=== PATIENT | male | born 1945 | race Caucasian/White ===

== ENCOUNTER → 2022-05-28 11:59 | Outpatient (CLI) | payer SELFPAY | PROVIDERS: Visit Provider Physician Assistant | DX: R30.0 Dysuria (principal) | CPT/HCPCS: 87077; 87086 ==

== ENCOUNTER → 2022-11-11 09:48 | Outpatient (CLI) | payer OTHER, SELFPAY | PROVIDERS: Visit Provider Physician Assistant | DX: R30.0 Dysuria (principal) | CPT/HCPCS: 87077; 87086 ==

== ENCOUNTER 2022-12-03 13:12 | Emergency (ER) | payer OTHER, SELFPAY ==
[2022-12-03] VITALS (13 sets, daily range): BP systolic 115–144; BP diastolic 61–98; PULSE 95–102; RESP 13–25; TEMP 36.8; O2SAT 93–98; BMI 21.8
--- NOTE | 2022-12-03 13:28 | DI.RAD.S_ITS ---
PROCEDURE: XR CHEST 1V INDICATIONS: Shortness of breath TECHNIQUE: One view of the chest was acquired. COMPARISON: None. FINDINGS: Surgical changes and devices: None. Lungs and pleura: Left lower lobe opacity in the retrocardiac region. No pleural effusion. No pneumothorax. Mediastinum: Mediastinal contours appear normal. Heart size is normal. Bones and chest wall: No suspicious bony lesions. Overlying soft tissues appear unremarkable. IMPRESSION: Left lower lobe pneumonia. Dictated by: Lauro Arriaga M.D. on 12/03/2022 at 12:51 Approved by: Lauro Arriaga M.D. on 12/03/2022 at 12:52
[2022-12-03 13:38] LABS: Add Manual Diff / Slide Review NO; Basophils Absolute Auto 0 /uL (0-100); Basophils Percent Auto 0.5 % (0-2); Eosinophils Absolute Auto 100 /uL (0-450); Eosinophils Percent Auto 0.7 % (2-4); Hematocrit 34.2 % (41-53); Hemoglobin 11.4 g/dL (13.5-17.5); Lymphocytes Absolute Auto 1400 /uL (1100-4500); Lymphocytes Percent Auto 14.6 % (25-40); Mean Corpuscular HGB Conc 33.3 % (30-36); Mean Corpuscular Hemoglobin 33.4 PG (26-34); Mean Corpuscular Volume 100.5 fL (80-100); Monocytes Absolute Auto 500 /uL (0-900); Monocytes Percent Auto 4.9 % (3-14); Neutrophils Absolute Auto 7500 /uL (1500-7000); Neutrophils Percent Auto 79.3 % (50-75); Platelet Count 277 X10^3/uL (150-400); Red Cell Distribution Width 14.6 % (11.6-14.8); White Blood Cell Count 9.4 X10^3/uL (4.5-11.0)
--- NOTE | 2022-12-03 13:38 | PC.NURSE ---
xray at bedside
--- NOTE | 2022-12-03 13:42 | PC.NURSE ---
additional upper airway suctioning done here in ED. Pt able to complete himself, with improvement, sats 94-96% on RA. Son at bedside. Pt reports did not eat today, only takes insulin at night, increased weakness over last 2 weeks, worsening today. fall yesterday -hit head, -head/neck/back pain. -thinners. usually ambulates independently without assistance; family reports things took a turn this morning, reports fluids building up in his mouth and weakness. pt confirms. denies pain. denies shortness of breath, only c/o sputum in mouth, mildly relieved with suctioning. suction and oxygen ready at bedside. on all monitoring equipment.
[2022-12-03 13:43] LABS: INR 1.1 (0.9-1.3); Prothrombin Time 12.7 SECONDS (10.1-12.7)
[2022-12-03 13:54] LABS: Alanine Aminotransferase 38 IU/L (<50); Albumin 3.5 g/dL (3.5-5.0); Albumin Globulin Ratio 1.1 (1.0-2.8); Alkaline Phosphatase 95 U/L (38-126); Aspartate Aminotransferase 33 IU/L (17-59); BUN Creatinine Ratio 21.1 (6-22); Bilirubin Total 0.3 mg/dL (0.2-1.3); Blood Urea Nitrogen 36 mg/dL (9-20); Calcium 9.5 mg/dL (8.4-10.2); Carbon Dioxide 24 mmol/L (22-32); Chloride 110 mmol/L (98-107); Estimated Glomerular Filt Rate 40 mL/min (>60); Globulin 3.2 g/dL (1.7-4.1); Glucose 145 mg/dL (80-110); HEMOLYSIS < 15 (0-50); Potassium 3.7 mmol/L (3.4-5.1); Sodium 144 mmol/L (137-145); Total Protein 6.7 g/dL (6.3-8.2)
[2022-12-03 13:55] LABS: Lactate (Lactic Acid) 1.5 mmol/L (0.7-2.1)
--- NOTE | 2022-12-03 14:08 | PC.NURSE ---
pt requesting a drink; Dr. olson requesting to feed patient; swallow screen completed and failed, pt started coughing and required oral suctioning; Dr. Olson notified. Rt at bedside for eval.
[2022-12-03 14:09] LABS: NT-proBNP (BNP-Adult 18+) 2620 pg/mL (<450); Troponin I 0.048 ng/mL (0.01-0.034)
--- NOTE | 2022-12-03 14:10 | PC.NURSE ---
pt denies difficulty swallowing at baseline. Dr. Lee notified.
[2022-12-03 14:14] LABS: COVID-19 CEPHEID 4-PLEX PCR Negative (Negative); Influenza A - CEPHEID Flu A NEGATIVE (NEGATIVE); Influenza B - CEPHEID Flu B NEGATIVE (NEGATIVE); Respiratory Syncytial Virus Negative (Negative)
--- NOTE | 2022-12-03 15:33 | ED.URI ---
HPI - URI/Sore Throat General Chief Complaint: Upper Respiratory Symptoms Stated Complaint: URI Time Seen by Provider: 12/03/22 13:34 Source: patient, family and EMS Mode of arrival: EMS Limitations: no limitations History of Present Illness HPI Narrative: 77-year-old male with persistent tremor but no formal diagnosis, hypertension, dyslipidemia, CHF, diabetes type 2 with complaint of phlegm and mucus that has been going on for 1 or 2 weeks. Patient has noticed he is coughing more and having some difficulty with swallowing particularly liquids. Family patient states been going on for some time. He is able to swallow his pills without much issue they state coughing seems to happen intermittently. He denies chest pain or pressure, no shortness of breath no fevers. States cough is been sort of clear productive. Denies abdominal back or flank pain. No nausea no vomiting, no issues with bowel movements such as diarrhea constipation. Did have a bowel movement yesterday but not today, no dysuria urgency or frequency. Discussed with patient he does have tremors of his chin and hand he is never been formally diagnosed but has had kind of worsening weakness, difficulty getting out of his chair movement. Patient primary care is through the [facility]. Related Data Home Medications Medication Instructions Recorded Confirmed amlodipine 5 mg tablet 5 mg PO DAILY 11/11/22 11/11/22 metoprolol succinate 25 mg 25 mg PO DAILY 11/11/22 11/11/22 tablet,extended release 24 hr Previous Rx's Medication Instructions Recorded amoxicillin 875 mg-potassium 1 tab PO BID #20 tabs 12/03/22 clavulanate 125 mg tablet Allergies Allergy/AdvReac Type Severity Reaction Status Date / Time No Known Drug Allergies Allergy Unverified 11/11/22 09:46 Review of Systems Review of Systems ROS Unobtainable: All systems reviewed & are unremarkable except as noted in HPI and below Patient History Social History Smoking Status: Current every day smoker Smoking Status: Current every day smoker Exam Narrative Exam Narrative: GEN: well nourished, well appearing male, alert and oriented x 3, patient appears to be in mild distress. HEENT: Atraumatic, pupils are equal round reactive to light, extraocular movements are intact, nares are clear. Throat is clear without any exudates, erythema, tonsillar enlargement or uvular deviation, normal speech no muffled voice. Patient does have some mild tremor of his chin. HEART: Regular rate and rhythm without murmur, clicks, rubs. Pulses are equal in upper and lower extremities LUNGS:Lungs clear to auscultation, no wheezes, rales, crackles, chest moves symmetrically, no tachypnea or accessory muscle use. Patient has 10mL suctioned secretions/sputum ABD:bowel sounds normal, soft, non-tender, no guarding, rebound, rigidity, no masses noted, no hepatosplenomegaly :No CVA tenderness MSCL: Non-tender, no muscle atrophy, muscles strength 5/5 upper and lower extremities, full range of motion. NEURO:CN 2-12 intact, sensation normal, Mild tremor upper extremity on left. Initial Vital Signs Initial Vital Signs: Vital Signs Pulse Rate 101 H 12/03/22 13:19 Respiratory Rate 24 12/03/22 13:19 Blood Pressure 132/98 H 12/03/22 13:19 Pulse Oximetry 96 12/03/22 13:19 Course Orders Ordered: ED Orders 12/03/22 13:20 Complete Blood Count AUTO DIFF Stat Comprehensive Metabolic Panel Stat Covid-19 + FLU A/B + RSV - PCR Stat Lactate (Lactic Acid) Stat NT-proBNP (BNP-Adult 18+) Stat Prothrombin Time INR Stat Troponin I Stat 12/03/22 13:28 XR chest 1V Stat EKG-12 Lead Stat Measure peak expiratory flow ONCE RT Consult Eval and Treat NOW 12/03/22 15:55 Troponin I Stat 12/03/22 16:04 EKG-12 Lead Stat Discontinued Medications Amoxicillin/Clavulanate Potassium (Amoxicillin/Clav 875/125 Mg) 1 tab PO NOW ONE Stop: 12/03/22 18:03 Last Admin: 12/03/22 18:18 Dose: 1 tab Documented By: KF Vital Signs Vital signs: Vital Signs - 8 hr 12/03/22 13:19 12/03/22 13:19 12/03/22 13:22 Temperature 98.3 F Pulse Rate 101 H 99 H Respiratory Rate 24 22 Blood Pressure 132/98 H 132/98 H Pulse Oximetry 96 95 Oxygen Delivery Method Room Air 12/03/22 13:30 12/03/22 13:30 12/03/22 14:00 Temperature Pulse Rate 100 H 100 H Respiratory Rate 21 24 Blood Pressure 138/74 Pulse Oximetry 94 94 Oxygen Delivery Method Room Air 12/03/22 14:00 12/03/22 14:30 12/03/22 14:30 Temperature Pulse Rate 102 H Respiratory Rate 25 H Blood Pressure 136/65 139/77 Pulse Oximetry 97 Oxygen Delivery Method Room Air 12/03/22 15:00 12/03/22 15:00 12/03/22 15:30 Temperature Pulse Rate 95 H 101 H Respiratory Rate 19 13 Blood Pressure 115/62 Pulse Oximetry 97 96 Oxygen Delivery Method 12/03/22 15:30 12/03/22 16:00 12/03/22 16:00 Temperature Pulse Rate 96 H Respiratory Rate 22 Blood Pressure 135/74 126/69 Pulse Oximetry 98 Oxygen Delivery Method 12/03/22 16:30 12/03/22 16:30 12/03/22 17:00 Temperature Pulse Rate 99 H 97 H Respiratory Rate 20 22 Blood Pressure 144/80 H Pulse Oximetry 98 97 Oxygen Delivery Method 12/03/22 17:00 12/03/22 17:30 12/03/22 17:30 Temperature Pulse Rate 100 H Respiratory Rate 21 Blood Pressure 123/66 133/74 Pulse Oximetry 97 Oxygen Delivery Method 12/03/22 18:00 12/03/22 18:00 12/03/22 18:30 Temperature Pulse Rate 96 H 99 H Respiratory Rate 16 20 Blood Pressure 123/61 Pulse Oximetry 95 93 Oxygen Delivery Method MDM - URI/Sore Throat Lab Data 12/03/22 13:20 12/03/22 13:20 Labs: Lab Results 12/03/22 12/03/22 Range/Units 13:20 15:55 WBC 9.4 (4.5-11.0) X10^3/uL RBC 3.40 L (4.5-5.9) X10^6/uL Hgb 11.4 L (13.5-17.5) g/dL Hct 34.2 L (41-53) % MCV 100.5 H (80-100) fL MCH 33.4 (26-34) PG MCHC 33.3 (30-36) % RDW 14.6 (11.6-14.8) % Plt Count 277 (150-400) X10^3/uL Neut % (Auto) 79.3 H (50-75) % Lymph % (Auto) 14.6 L (25-40) % Nobles % (Auto) 4.9 (3-14) % Eos % (Auto) 0.7 L (2-4) % Baso % (Auto) 0.5 (0-2) % Neut # (Auto) 7500 H (6997-9300) /uL Lymph # (Auto) 1400 (5220-6632) /uL Nobles # (Auto) 500 (0-900) /uL Eos # (Auto) 100 (0-450) /uL Baso # (Auto) 0 (0-100) /uL PT 12.7 (10.1-12.7) SECONDS INR 1.1 (0.9-1.3) Sodium 144 (137-145) mmol/L Potassium 3.7 (3.4-5.1) mmol/L Chloride 110 H (98-107) mmol/L Carbon Dioxide 24 (22-32) mmol/L BUN 36 H (9-20) mg/dL Creatinine 1.71 H (0.66-1.25) mg/dL Estimated GFR 40 L (>60) mL/min BUN/Creatinine Ratio 21.1 (6-22) Glucose 145 H (80-110) mg/dL Lactate 1.5 (0.7-2.1) mmol/L Calcium 9.5 (8.4-10.2) mg/dL Total Bilirubin 0.3 (0.2-1.3) mg/dL AST 33 (17-59) IU/L ALT 38 (<50) IU/L Alkaline Phosphatase 95 (38-126) U/L Troponin I 0.048 H 0.056 H (0.01-0.034) ng/mL NT-Pro-B Natriuret Pep 2620 H (<450) pg/mL Total Protein 6.7 (6.3-8.2) g/dL Albumin 3.5 (3.5-5.0) g/dL Globulin 3.2 (1.7-4.1) g/dL Albumin/Globulin Ratio 1.1 (1.0-2.8) SARS-CoV-2 (PCR) Negative (Negative) Influenza A (RT-PCR) Flu a negative (NEGATIVE) Influenza B (RT-PCR) Flu b negative (NEGATIVE) RSV (PCR) Negative (Negative) Imaging Data Chest x-ray: Radiologist's Impression: [address] [address] XRay Report Signed Patient: Chilango Adams MR#: [id number] : 1945 Acct:[id number] Age/Sex: 77 / M Date of Service: 12/03/22 Loc: ED Accession Number: [id number] Procedure: XR chest 1V Ordering Provider: Marisol Lee D.O. PROCEDURE: XR CHEST 1V INDICATIONS: Shortness of breath TECHNIQUE: One view of the chest was acquired. COMPARISON: None. FINDINGS: Surgical changes and devices: None. Lungs and pleura: Left lower lobe opacity in the retrocardiac region. No pleural effusion. No pneumothorax. Mediastinum: Mediastinal contours appear normal. Heart size is normal. Bones and chest wall: No suspicious bony lesions. Overlying soft tissues appear unremarkable. IMPRESSION: Left lower lobe pneumonia. Dictated by: Lauro Arriaga M.D. on 12/03/2022 at 12:51 Approved by: Lauro Arriaga M.D. on 12/03/2022 at 12:52 ECG Data Attestation: I personally reviewed and interpreted this ECG as follows: Prior ECG tracings: available for review Interpretation: EKG was sinus rhythm first-degree AV block, rate 90 9p are 264 QRS of 94 QTC 492 quite a bit of motion artifact on EKG. Repeat EKG shows sinus rhythm first-degree AV block left axis deviation rate of 97 DC 272 QRS of 94 QTC [address] No acute [address] elevation depression noted motion artifact significantly improved. Patient has prior from 2014 which appears similar in ST segments. MDM Narrative Medical decision making narrative: 77-year-old male concern for upper respiratory infection but I suspect he may have little bit of aspiration pneumonia. He did not pass a swallow eval with water but did do very well with applesauce and thickened liquids here. Patient's slightly tachycardic still 99, no hypotension no significant hypoxia, no tachypnea or fever. White count 9.4 hemoglobin is 11 sodium 277 coags are negative, creatinine is 1.71 the BUN at 36 unclear if this is new or baseline patient is unsure, no significant electrolyte abnormalities or glucose changes. Troponin was 0.048 and on repeat 0.056 with a BNP of 2 620. Negative for Plex with a chest x-ray consistent with left lower lobe pneumonia. Patient's lungs are fairly clear, he is no chest pain no chest pressure denies shortness of breath. He had a little bit of clear productive sputum but not very much in the department. Discussed with patient about keeping for observation, possible swallow eval in the morning for further workup suspect he may have some Parkinson's or other developing disorder causing his swallowing issues. Patient is quite adamant he would like to return home. Discussed with patient will start oral antibiotic he tolerated that here in the department. Asked him to reach out to primary care for further workup with Neurology and swallow eval and patient family feel comfortable with this plan. Discharge Plan Departure Patient Disposition: Home Clinical Impression: Pneumonia, Difficulty swallowing Instructions: DI for Pneumonia -- Adult Activity Restrictions/Additional Instructions: Please follow-up with your physician. You appear to have a pneumonia in the left side of your chest, I suspect there maybe a component of aspiration from difficulty swallowing. I would recommend thickened diet until you have a swallow evaluation Talk with your physician about having a swallow study and neurologic workup for your tremor. Your renal function is elevated today at 1.71, this maybe your normal baseline I do not have any priors for comparison, talk with your physician to follow up your labs You may continue your home medications as prescribed. Take your antibiotics until gone. You can crush this medication if needed. Prescription sent to [facility] in [place]. Please return for fevers new or worsening chest pain, shortness of breath, worsening difficulty swallowing, persistent vomiting, new swelling in her extremities or other new or concerning changes. Prescriptions: New amoxicillin-pot clavulanate 875-125 mg tablet 1 tab PO BID Qty: 20 0RF No Action metoprolol succinate 25 mg tablet extended release 24 hr 25 mg PO DAILY amlodipine 5 mg tablet 5 mg PO DAILY Referrals: Miscellaneous,Doctor, MD [Primary Care Provider] - Stand Alone Forms: Patient Portal/API
[2022-12-03 16:27] LABS: Troponin I 0.056 ng/mL (0.01-0.034)
--- NOTE | 2022-12-03 17:08 | PC.NURSE ---
dr olson at bedside with pt and pt family
--- NOTE | 2022-12-03 17:22 | PC.NURSE ---
per direct order from dr wesley martini to give pt applesauce and try thickened liquid. applesauce provided, pt tolerated well, able to feed self, no choking or coughing episodes. dr wesley langston.
[2022-12-03] MEDS: AMOXICILLIN/CLAV 875/125 MG 1 TAB PO (18:18)
== END 2022-12-03 18:40 | disposition home or self-care (01) ==
PROVIDERS: Emergency Provider Emergency Medicine
DX: J18.9 Pneumonia, unspecified organism (principal); R13.10 Dysphagia, unspecified; F17.210 Nicotine dependence, cigarettes, uncomplicated; I44.0 Atrioventricular block, first degree
CPT/HCPCS: 0241U; 36415; 71045; 80053; 83605; 83880; 84484; 85025; 85610; 93005; 99284

== ENCOUNTER 2022-12-06 08:23 | Inpatient (IN) | payer OTHER, SELFPAY ==
[2022-12-06] VITALS (15 sets, daily range): BP systolic 112–148; BP diastolic 61–71; PULSE 55–112; RESP 16–26; TEMP 36.3–36.5; O2SAT 87–98; BMI 20.5
--- NOTE | 2022-12-06 08:35 | DI.RAD.S_ITS ---
PROCEDURE: XR CHEST 1V INDICATIONS: hypoxia, cough, recent PNA TECHNIQUE: One view of the chest was acquired. COMPARISON: [facility], , XR CHEST 1V, 12/03/2022, 13:37. FINDINGS: Surgical changes and devices: None. Lungs and pleura: Airspace opacity in the left lower lobe is unchanged compared to 12/03/2022. No pleural effusions or pneumothorax. Mediastinum: Mediastinal contours appear normal. Heart size is normal. Bones and chest wall: No suspicious bony lesions. Overlying soft tissues appear unremarkable. Leftward curvature of the thoracic spine. IMPRESSION: Patchy airspace opacity in the left lower lobe unchanged compared to 12/03/2022. Dictated by: Gal Noel M.D. on 12/06/2022 at 9:10 Approved by: Gal Noel M.D. on 12/06/2022 at 9:12
--- NOTE | 2022-12-06 08:37 | ED.WEAKNESS ---
HPI - Weakness General Chief complaint: Shortness of Breath/Dyspnea Stated complaint: SOB Time Seen by Provider: 12/06/22 08:26 History of Present Illness HPI Narrative: 77-year-old male with history of hypertension, CHF, COPD (not on O2) presents by EMS from home for generalized weakness and productive cough. Patient was seen for same on 12/03/2022. He was diagnosed with pneumonia. There was concern for possible aspiration, they performed a swallow test and he performed well with thickened liquids. He was discharged back home. He lives on the same property as his son and [id number], and they help him daily. This morning the son went to check on his father as per usual and found him nearly comatose with gurgling respirations and called 911. Patient was hypoxic by EMS in the 80s and placed on 2 L nasal cannula. On arrival patient was suctioned and secretions were evacuated from the patient's oral cavity. After being suctioned the patient stated he felt much better. Related Data Home Medications Medication Instructions Recorded Confirmed amlodipine 5 mg tablet 5 mg PO DAILY 11/11/22 12/06/22 metoprolol succinate 25 mg 25 mg PO DAILY 11/11/22 12/06/22 tablet,extended release 24 hr albuterol sulfate 90 mcg/actuation 2 puff inhalation Q4-6H PRN SOB 12/06/22 12/06/22 aerosol inhaler chlorthalidone 25 mg tablet 25 mg PO DAILY 12/06/22 12/06/22 glipizide 10 mg tablet 10 mg PO BID 12/06/22 12/06/22 lisinopril 40 mg tablet 40 mg PO DAILY 12/06/22 12/06/22 metformin 1,000 mg tablet 1,000 mg PO BID 12/06/22 12/06/22 rosuvastatin 5 mg tablet (Crestor) 5 mg PO DAILY 12/06/22 12/06/22 Previous Rx's Medication Instructions Recorded amoxicillin 875 mg-potassium 1 tab PO BID #20 tabs 12/03/22 clavulanate 125 mg tablet Allergies Allergy/AdvReac Type Severity Reaction Status Date / Time No Known Drug Allergies Allergy Unverified 11/11/22 09:46 Review of Systems Review of Systems Narrative: Negative except as noted above Patient History Social History (Reviewed 12/03/22 @ 19:23 by YANIRA Yañez Smoking Status: Current every day smoker Smoking Status: Current every day smoker Exam Initial Vital Signs Initial Vital Signs: Vital Signs Pulse Oximetry 91 12/06/22 08:27 Oxygen Delivery Method Nasal Cannula 12/06/22 08:27 Oxygen Flow Rate 2 12/06/22 08:27 Const: Awake, alert, debilitated, frail, underweight Eyes: PERRL, EOMI, conjunctiva normal ENT: Atraumatic, dry mucous membranes, respiratory secretions suctioned from posterior oropharynx Cardiac: Tachycardia, regular rhythm RESP: And start crackles bilaterally GI: Atraumatic, soft, nontender MSK: Atraumatic, full range of motion, pulses equal Skin: Warm, Dry, poor skin turgor Neuro: AO x3, CN II-XII grossly intact, moves all extremities Course Orders Ordered: ED Orders 12/06/22 08:35 XR chest 1V Stat EKG-12 Lead Stat 12/06/22 08:44 COVID19 -Nasal RAPID Stat Covid-19 + FLU A/B + RSV - PCR Stat 12/06/22 08:45 Blood Culture Stat Complete Blood Count AUTO DIFF Stat Comprehensive Metabolic Panel Stat Lactate (Lactic Acid) Stat NT-proBNP (BNP-Adult 18+) Stat PTT Partial Thromboplastin Nikolas Stat Procalcitonin Stat Prothrombin Time INR Stat Troponin & CK Cardiac Panel Stat 12/06/22 09:00 Arterial Blood Gas Stat 12/06/22 09:48 CT head/brain wo con Stat 12/06/22 10:12 Urinalysis and Microscopic Stat 12/06/22 10:48 Consult to Occupational Therapy Evaluate & Treat 12/06/22 11:44 Consult to Speech Therapy Evaluate & Treat 12/06/22 12:30 Consult to Speech Therapy Evaluate & Treat Discontinued Medications Lactated Ringer's (Lactated Ringers) 2,100 mls @ 700 mls/hr 30 ml/kg infuse over 3 hr (2100 ml) IV NOW ONE Stop: 12/06/22 11:34 Last Infusion: 12/06/22 11:01 Dose: Infused Documented By: Admin: 12/06/22 08:56 Dose: 700 mls/hr Documented By: KELLE Piperacillin Sod/Tazobactam (Sod 4.5 gm/ Sodium Chloride) 100 mls @ 200 mls/hr IV NOW ONE Stop: 12/06/22 08:36 Last Infusion: 12/06/22 09:34 Dose: Infused Documented By: Admin: 12/06/22 08:56 Dose: 200 mls/hr Documented By: CTS Lidocaine HCl (Lidocaine 2% (Glydo) 6 Ml Gel) 6 ml TOP NOW ONE Stop: 12/06/22 11:31 Last Admin: 12/06/22 11:38 Dose: Not Given Documented By: MPO Reevaluation(s) Reevaluation #1: Chest x-ray shows unchanged pneumonia. Other laboratory work is relatively unremarkable. CT brain negative for acute findings. Patient is still requiring 2 L oxygen to maintain saturations. Patient failed bedside swallow test and he is so weak that he is unable to get up to even walk. Plan to admit patient for pneumonia failing outpatient therapy as well as severe weakness with inability to tolerate secretions. Vital Signs Vital signs: Vital Signs - 8 hr 12/06/22 08:27 12/06/22 08:28 12/06/22 08:28 Temperature Pulse Rate 90 Respiratory Rate Blood Pressure 122/61 Pulse Oximetry 91 91 Oxygen Delivery Method Nasal Cannula Nasal Cannula Oxygen Flow Rate 2 2 12/06/22 08:30 12/06/22 08:31 12/06/22 09:00 Temperature 97.7 F Pulse Rate 87 89 88 Respiratory Rate 17 24 24 Blood Pressure 122/61 136/66 Pulse Oximetry 88 L 87 L 98 Oxygen Delivery Method Room Air Room Air Nasal Cannula Oxygen Flow Rate 3 12/06/22 10:00 12/06/22 10:32 12/06/22 11:28 Temperature Pulse Rate 92 H 84 112 H Respiratory Rate 24 16 20 Blood Pressure 148/71 H 125/69 137/65 Pulse Oximetry 97 97 92 Oxygen Delivery Method Nasal Cannula Room Air Room Air Oxygen Flow Rate 3 12/06/22 12:00 Temperature Pulse Rate 104 H Respiratory Rate 24 Blood Pressure 112/65 Pulse Oximetry 91 Oxygen Delivery Method Room Air Oxygen Flow Rate MDM - Weakness Lab Data 12/06/22 08:45 12/06/22 08:45 Labs: Lab Results 12/06/22 12/06/22 12/06/22 Range/Units 08:44 08:45 09:00 WBC 8.1 (4.5-11.0) X10^3/uL RBC 3.14 L (4.5-5.9) X10^6/uL Hgb 10.6 L (13.5-17.5) g/dL Hct 31.7 L (41-53) % MCV 101.1 H (80-100) fL MCH 33.8 (26-34) PG MCHC 33.4 (30-36) % RDW 14.6 (11.6-14.8) % Plt Count 247 (150-400) X10^3/uL Neut % (Auto) 75.5 H (50-75) % Lymph % (Auto) 14.9 L (25-40) % [place] % (Auto) 4.7 (3-14) % Eos % (Auto) 4.1 H (2-4) % Baso % (Auto) 0.8 (0-2) % Neut # (Auto) 6100 (4837-6844) /uL Lymph # (Auto) 1200 (6579-6574) /uL [place] # (Auto) 400 (0-900) /uL Eos # (Auto) 300 (0-450) /uL Baso # (Auto) 100 (0-100) /uL PT 12.5 (10.1-12.7) SECONDS INR 1.1 (0.9-1.3) APTT 27 (26-36) SECONDS ABG Sample Site Left radial ABG pH 7.49 H (7.35-7.45) ABG pCO2 35.6 (35-45) mmHg ABG pO2 92 (80-100) mmHg ABG HCO3 27 (23-27) mmol/L ABG Total CO2 28 H (23-27) mmol/L ABG O2 Saturation 98 (95-100) % ABG Base Excess 3.0 (-2-3) mmol/L FiO2 28 Sodium 142 (137-145) mmol/L Potassium 3.8 (3.4-5.1) mmol/L Chloride 105 (98-107) mmol/L Carbon Dioxide 26 (22-32) mmol/L BUN 41 H (9-20) mg/dL Creatinine 1.93 H (0.66-1.25) mg/dL Estimated GFR 35 L (>60) mL/min BUN/Creatinine Ratio 21.2 (6-22) Glucose 127 H (80-110) mg/dL Lactate 1.1 (0.7-2.1) mmol/L Calcium 9.2 (8.4-10.2) mg/dL Total Bilirubin 0.5 (0.2-1.3) mg/dL AST 47 (17-59) IU/L ALT 65 H (<50) IU/L Alkaline Phosphatase 100 (38-126) U/L Total Creatine Kinase 39 L (55-170) U/L Troponin I 0.044 H (0.01-0.034) ng/mL NT-Pro-B Natriuret Pep 1080 H (<450) pg/mL Total Protein 6.5 (6.3-8.2) g/dL Albumin 3.4 L (3.5-5.0) g/dL Globulin 3.1 (1.7-4.1) g/dL Albumin/Globulin Ratio 1.1 (1.0-2.8) Procalcitonin 0.27 (<0.5) ng/mL Urine Color Urine Appearance Urine pH (4.5-8.0) Ur Specific [place] (1.000-1.035) Urine Protein (Negative) Urine Glucose (UA) (Negative) g/dL Urine Ketones (NEGATIVE) Urine Occult Blood (Negative) Urine Nitrate (Negative) Urine Bilirubin (NEGATIVE) Urine Urobilinogen (0.2) E.U./dL Ur Leukocyte Esterase (NEGATIVE) Urine RBC (0-5/HPF) Urine WBC (0-5/HPF) Ur Squamous Epith Cells (0-5/HPF) Urine Bacteria (None) Ur Culture Indicated? SARS-CoV-2 (PCR) Negative (Negative) Influenza A (RT-PCR) Flu a negative (NEGATIVE) Influenza B (RT-PCR) Flu b negative (NEGATIVE) RSV (PCR) Negative (Negative) 12/06/22 Range/Units 10:12 WBC (4.5-11.0) X10^3/uL RBC (4.5-5.9) X10^6/uL Hgb (13.5-17.5) g/dL Hct (41-53) % MCV (80-100) fL MCH (26-34) PG MCHC (30-36) % RDW (11.6-14.8) % Plt Count (150-400) X10^3/uL Neut % (Auto) (50-75) % Lymph % (Auto) (25-40) % Hardeman % (Auto) (3-14) % Eos % (Auto) (2-4) % Baso % (Auto) (0-2) % Neut # (Auto) (7055-3790) /uL Lymph # (Auto) (5078-6036) /uL Hardeman # (Auto) (0-900) /uL Eos # (Auto) (0-450) /uL Baso # (Auto) (0-100) /uL PT (10.1-12.7) SECONDS INR (0.9-1.3) APTT (26-36) SECONDS ABG Sample Site ABG pH (7.35-7.45) ABG pCO2 (35-45) mmHg ABG pO2 (80-100) mmHg ABG HCO3 (23-27) mmol/L ABG Total CO2 (23-27) mmol/L ABG O2 Saturation (95-100) % ABG Base Excess (-2-3) mmol/L FiO2 Sodium (137-145) mmol/L Potassium (3.4-5.1) mmol/L Chloride (98-107) mmol/L Carbon Dioxide (22-32) mmol/L BUN (9-20) mg/dL Creatinine (0.66-1.25) mg/dL Estimated GFR (>60) mL/min BUN/Creatinine Ratio (6-22) Glucose (80-110) mg/dL Lactate (0.7-2.1) mmol/L Calcium (8.4-10.2) mg/dL Total Bilirubin (0.2-1.3) mg/dL AST (17-59) IU/L ALT (<50) IU/L Alkaline Phosphatase (38-126) U/L Total Creatine Kinase (55-170) U/L Troponin I (0.01-0.034) ng/mL NT-Pro-B Natriuret Pep (<450) pg/mL Total Protein (6.3-8.2) g/dL Albumin (3.5-5.0) g/dL Globulin (1.7-4.1) g/dL Albumin/Globulin Ratio (1.0-2.8) Procalcitonin (<0.5) ng/mL Urine Color Yellow Urine Appearance Clear Urine pH 5.0 (4.5-8.0) Ur Specific [place] 1.015 (1.000-1.035) Urine Protein Trace H (Negative) Urine Glucose (UA) Negative (Negative) g/dL Urine Ketones Negative (NEGATIVE) Urine Occult Blood 1+ H (Negative) Urine Nitrate Negative (Negative) Urine Bilirubin Negative (NEGATIVE) Urine Urobilinogen 0.2 (0.2) E.U./dL Ur Leukocyte Esterase 1+ H (NEGATIVE) Urine RBC 1-5/hpf (0-5/HPF) Urine WBC 1-5/hpf (0-5/HPF) Ur Squamous Epith Cells None seen (0-5/HPF) Urine Bacteria None seen (None) Ur Culture Indicated? Cult not indicated SARS-CoV-2 (PCR) (Negative) Influenza A (RT-PCR) (NEGATIVE) Influenza B (RT-PCR) (NEGATIVE) RSV (PCR) (Negative) Urine Dip Bedside Urine Glucose Negative Bedside Urine Bilirubin - Negative Bedside Urine Ketone - Negative Urine Specific [place] 1.015 Bedside Urine Occult Blood +/- Bedside Urine pH 6.0 Bedside Urine Protein - Negative Bedside Urine Urobilinogen - Negative Bedside Urine Nitrite - Negative Bedside Urine Leukocytes - Negative Esterase MDM Narrative Medical decision making narrative: Frail and chronically unwell appearing patient with rhonchorous cough, unable to expel secretions. Recently treated for pneumonia, patient is so profoundly debilitated and weak that he is unable to fully cough. Deep suction improve patient's airway status and oxygenation. We will order fluids, IV antibiotics. Since there was a suspicion of aspiration pneumonia on previous visit we will order Zosyn. Family at bedside states that patient was previously able to swallow and expel secretions prior to his pneumonia diagnosis. With new difficulty swallowing question if he had a CVA causing this dysphagia, we will order CT brain. Discharge Plan Departure Patient Disposition: Admitted As Inpatient Clinical Impression: Generalized weakness Pneumonia Qualifiers: Pneumonia type: due to unspecified organism Laterality: left Lung location: lower lobe of lung Qualified Code(s): J18.9 - Pneumonia, unspecified organism Difficulty swallowing Qualifiers: Dysphagia type: unspecified Qualified Code(s): R13.10 - Dysphagia, unspecified Protein calorie malnutrition Qualifiers: Protein-calorie malnutrition severity: unspecified severity Qualified Code(s): E46 - Unspecified protein-calorie malnutrition Admit Date/Time: 12/06/22 12:41 Admit Provider: Terrence Mendieta
[2022-12-06 08:55] LABS: Add Manual Diff / Slide Review NO; Basophils Absolute Auto 100 /uL (0-100); Basophils Percent Auto 0.8 % (0-2); Eosinophils Absolute Auto 300 /uL (0-450); Eosinophils Percent Auto 4.1 % (2-4); Hematocrit 31.7 % (41-53); Hemoglobin 10.6 g/dL (13.5-17.5); Lymphocytes Absolute Auto 1200 /uL (1100-4500); Lymphocytes Percent Auto 14.9 % (25-40); Mean Corpuscular HGB Conc 33.4 % (30-36); Mean Corpuscular Hemoglobin 33.8 PG (26-34); Mean Corpuscular Volume 101.1 fL (80-100); Monocytes Absolute Auto 400 /uL (0-900); Monocytes Percent Auto 4.7 % (3-14); Neutrophils Absolute Auto 6100 /uL (1500-7000); Neutrophils Percent Auto 75.5 % (50-75); Platelet Count 247 X10^3/uL (150-400); Red Blood Cell Count 3.14 X10^6/uL (4.5-5.9); Red Cell Distribution Width 14.6 % (11.6-14.8); White Blood Cell Count 8.1 X10^3/uL (4.5-11.0)
[2022-12-06] MEDS: PIPERACILLIN/TAZO 4.5 GM in SODIUM CHLORIDE 0.9% 100 ML IV (08:56)
[2022-12-06] MEDS: LACTATED RINGERS 2,100 ML 700 ML IV (08:56)
[2022-12-06 09:02] LABS: INR 1.1 (0.9-1.3); Prothrombin Time 12.5 SECONDS (10.1-12.7)
[2022-12-06 09:05] LABS: Lactate (Lactic Acid) 1.1 mmol/L (0.7-2.1)
[2022-12-06 09:06] LABS: Alanine Aminotransferase 65 IU/L (<50); Albumin 3.4 g/dL (3.5-5.0); Albumin Globulin Ratio 1.1 (1.0-2.8); Alkaline Phosphatase 100 U/L (38-126); Aspartate Aminotransferase 47 IU/L (17-59); BUN Creatinine Ratio 21.2 (6-22); Bilirubin Total 0.5 mg/dL (0.2-1.3); Blood Urea Nitrogen 41 mg/dL (9-20); Calcium 9.2 mg/dL (8.4-10.2); Carbon Dioxide 26 mmol/L (22-32); Chloride 105 mmol/L (98-107); Creatine Kinase 39 U/L (55-170); Estimated Glomerular Filt Rate 35 mL/min (>60); Globulin 3.1 g/dL (1.7-4.1); Glucose 127 mg/dL (80-110); HEMOLYSIS < 15 (0-50); Potassium 3.8 mmol/L (3.4-5.1); Sodium 142 mmol/L (137-145); Total Protein 6.5 g/dL (6.3-8.2)
[2022-12-06 09:11] LABS: COVID19 -Nasal RAPID Negative (Negative)
[2022-12-06 09:13] LABS: PTT Partial Thromboplastin Tim 27 SECONDS (26-36)
[2022-12-06 09:18] LABS: NT-proBNP (BNP-Adult 18+) 1080 pg/mL (<450); Troponin I 0.044 ng/mL (0.01-0.034)
[2022-12-06 09:23] LABS: Procalcitonin 0.27 ng/mL (<0.5)
[2022-12-06 09:34] LABS: Influenza A - CEPHEID Flu A NEGATIVE (NEGATIVE); Influenza B - CEPHEID Flu B NEGATIVE (NEGATIVE); Respiratory Syncytial Virus Negative (Negative)
[2022-12-06 09:36] LABS: COVID-19 CEPHEID 4-PLEX PCR Negative (Negative)
--- NOTE | 2022-12-06 09:48 | DI.CT.S_ITS ---
PROCEDURE: CT HEAD/BRAIN WO CON INDICATIONS: DIFFICULTY SWALLOWING X1 WK TECHNIQUE: Noncontrast 4.5 mm thick angled axial sections acquired from the foramen magnum to the vertex, with coronal and sagittal reformats. For radiation dose reduction, the following was used: automated exposure control, adjustment of mA and/or kV according to patient size. COMPARISON: [facility], CR, XR CHEST 1V, 12/06/2022, 8:46. FINDINGS: Image quality: Excellent. CSF spaces: Basal cisterns are patent. No extra-axial fluid collections. The ventricles are symmetric in size and shape. Brain: No intracranial bleeds or masses. There is cerebral volume loss for age, with resultant ventricular and sulcal prominence. There are periventricular and deep white matter chronic small vessel ischemic changes. There is intracranial internal carotid artery atherosclerosis. Skull and face: Calvarium and visualized facial bones appear intact, without suspicious lesions. Sinuses: Visualized sinuses and mastoids are clear. IMPRESSION: No acute intracranial process is seen. Note is made of age-appropriate brain parenchymal volume loss and chronic small vessel ischemic changes. Dictated by: Riccardo Link M.D. on 12/06/2022 at 9:27 Approved by: Riccardo Link M.D. on 12/06/2022 at 9:27
--- NOTE | 2022-12-06 10:16 | PC.NURSE ---
Please see paper charting for additional vitals unable to cross into EMR
[2022-12-06 10:21] LABS: Fractionated Inspired Oxygen 28; HCO3 ABG 27 mmol/L (23-27); Oxygen Saturation ABG 98 % (95-100); PCO2 ABG 35.6 mmHg (35-45); PO2 ABG 92 mmHg (80-100); TCO2 ABG 28 mmol/L (23-27); pH ABG 7.49 (7.35-7.45)
[2022-12-06 10:22] LABS: Allen Test for ABG Passed? Yes, Passed; Blood Gas Collection Site Left Radial
[2022-12-06 10:29] LABS: Appearance Urine UA CLEAR; Bilirubin Urine UA NEGATIVE (NEGATIVE); Color Urine UA YELLOW; Glucose Urine UA NEGATIVE (Negative); Ketones Urine UA NEGATIVE (NEGATIVE); Leukocyte Esterase Urine UA 1+ (NEGATIVE); Nitrite Urine UA NEGATIVE (Negative); Occult Blood Urine UA 1+ (Negative); Protein Urine UA TRACE (Negative); Specific Gravity Urine UA 1.015 (1.000-1.035); Urobilinogen Urine UA 0.2 E.U./dL (0.2)
[2022-12-06 10:36] LABS: Bacteria Urine None Seen; Culture Indicated Urine Cult Not Indicated; RBC Urine 1-5/HPF (0-5/HPF); Squamous Epithelial Cell Urine None Seen (0-5/HPF); WBC Urine 1-5/HPF (0-5/HPF)
--- NOTE | 2022-12-06 11:47 | PC.NURSE ---
Pt unable to ambulate due to extreme weakness and SOB. Pt sat at edge of bed and was unable to stand. Failed swallow screen due to pt's gurgling voice and need to suctioning. Pt placed on NPO status and COSMETIC COUNSELOR consult per protocol. Bladder scan 600cc. Dumont cath placed per MD order.
--- NOTE | 2022-12-06 12:31 | OT.IPNOTE ---
OT orders received for swallowing and able to call ER to clarify that orders were for MINING CAPTAIN and not OT, therefore discharge OT eval orders.
--- NOTE | 2022-12-06 13:19 | PC.NURSE ---
Day shift: Pt in room from ED at approx 1320. Small BM in brief, iona area cleaned, barrier cream applied, and brief changed. Pt does have a quarter sized area of skin breakdown at the coccyx. Coccyx area is red and blanchable. Skin tear left elbow. Left and right FA are wrapped in gauze CDI. Bilateral FA's are purple. VS WNL. 1L NC 94%. Unable to lift left leg off of bed. CMS intact all extremities. Oriented to room and call light. He will be a high fall risk and those protocols are in effect. Call light in reach. Pt also has a tremor at the mouth area. Pt and Pt's Son state he has had this for over a year. Dumont patent with good output. Clear yellow fluid.
--- NOTE | 2022-12-06 14:25 | PT.IIE ---
Physical Therapy Inpatient Evaluation/Re-Eval M1 PT/OT-IP Prior Functional Status Start: 12/06/22 16:25 Freq: NEEDED Status: Active Protocol: Document 12/06/22 14:25 AB (Rec: 12/06/22 16:36 AB [id number]) Medical Review Prior Functional Status Medical History Reviewed Yes Communication able to answer questions; slow speech Mobility and Gait pt stated that he is independent with all mobilities and ambulation without AD Social History Household Members none Living Arrangements House Number of Floors (Floors) One Floor Number of Stairs To Enter/Railing? no steps to enter Home Environment High Toilet,Walk in Shower Home Equipment Front Wheel Walker,Straight Cane,Grab Bars Near Toilet, Grab Bars In Shower Additional Social History Comment pt stated that his son or DIL checks on him daily. Son/DIL lives ~ 200 feet away per pt. M2 PT-IP Current Condition Start: 12/06/22 16:25 Freq: NEEDED Status: Active Protocol: Document 12/06/22 14:25 AB (Rec: 12/06/22 16:36 AB [email or web address]) Physical Therapy Current Condition Current Condition Evaluation Date 12/06/22 Treatment Diagnosis PNA; difficulty in walking Onset Date 12/06/22 M3 PT-IP Subjective Start: 12/06/22 16:25 Freq: NEEDED Status: Active Protocol: Document 12/06/22 14:25 AB (Rec: 12/06/22 16:36 AB [email or web address]) Subjective Physical Therapy Visit Type Type Initial Evaluation Visit Start Time 14:25 Visit Stop Time 16:25 Total Visit Minutes 39 Notes pt seen for split visits: 1425 to 1535 and 1556 to 1625 Number of PRINTER ASSISTANT Visits 0 Physical Therapy Visit Comments Patient Comments agreeable to do PT Therapy Pain Assessment Pain Present Pain Present Denied Pain M4 PT-IP Mobility and Gait Start: 12/06/22 16:25 Freq: NEEDED Status: Active Protocol: Document 12/06/22 14:25 AB (Rec: 12/06/22 16:36 AB [email or web address]) PT-Bed Mobility Assessment Supine to Sit Supine to Sit Standby Assistance Scooting Scooting to Edge of Bed Maximum Assistance PT-Transfer Assessment Sit to and From Stand Sit to and from Stand Minimal Assistance,1 Person Assistance,Use of Upper Extremities Equipment Transfer Assistive Device Gait Belt,Front Wheeled Walker Orthotic/Prosthetic Devices or Brace: No Transfers Transfer Destination Chair Transfer Technique ambulated Transfer Ability Level of Assist Minimal Assistance Comments Mobility Comments pt supine in bed and agreeable to do PT. BP: 124/62 O2 sat with 1L/min O2 varies from 94 -100% pt completed supine to sit SBA . able to sit on EOB SBA. max A for scooting to EOB. completed sit to stand min A and step transfer to chair using FWW min A. pt able to ambulate in room ~ 20 ft using FWW min A. pt agreed to stay seated on the chair. positioned on the chair. call light and table placed within reach. Gait Assessment Gait Gait Assistance Required: Minimum Assistance Distance (Feet) 20 Able to Maintain Weight Bearing Status Yes During Gait Assistive Devices Assistive Device Gait Belt,Front Wheeled Walker Orthotic/Prosthetic Devices or Brace: No Gait Deviations General Gait Pattern Decreased Stride Length, Decreased Feet Clearance Factors Limiting Gait Function Factors Limiting Gait Function Decreased Activity Tolerance, Decreased Strength,Difficulty Following Directions,Pain,Poor Balance,Poor Safety Awareness ,Respiratory Distress PT-Balance Assessment Sitting Balance and Reactions Static Sitting Balance Ability Good Dynamic Sitting Balance Ability Good Standing Balance and Reactions Static Standing Balance Ability Fair Dynamic Standing Balance Ability Fair Device Used FWW M5 PT-IP Objective Assessments Start: 12/06/22 16:25 Freq: NEEDED Status: Active Protocol: Document 12/06/22 14:25 AB (Rec: 12/06/22 16:36 AB [email or web address]) Orientation Orientation/Cognition Level of Alertness Alert Orientation Name,Place,Situation Safety Awareness Decreased Safety Awareness Memory Description Short Term Impaired Gross Range of Motion Lower Extremity ROM Assessment Within Functional Limits Strength Lower Extremity Strength Hip 4-/5 Knee 4-/5 Sensation Assessment Sensation Gross Sensation WNL Muscle Tone Muscle Tone WNL Yes M6 PT-IP Treatment Start: 12/06/22 16:25 Freq: NEEDED Status: Active Protocol: Document 12/06/22 14:25 AB (Rec: 12/06/22 16:36 AB [email or web address]) Physical Therapy Treatment Education Education Provided Safety M7 PT-IP Assessment and Plan Start: 12/06/22 16:25 Freq: NEEDED Status: Active Protocol: Document 12/06/22 14:25 AB (Rec: 12/06/22 16:36 AB [email or web address]) PT Summary Assessment and Plan Potential Rehabilitation Potential Fair Status of Condition at Evaluation Evolving Summary Impairments Pain,ROM,Strength,Balance, Coordination,Sensation,Tone, Cognition,Bed Mobility, Transfers,Gait,Activity Tolerance Assessment Summary pt is a 77 y/o M admitted for PNA and weakness. pt currently requiring min A for transfers and ambulation using FWW and uses 1L/min O2 and O2 sat maintained at 94-100% with activity. pt was independent with all mobilities without AD prior to admission and was needing O2 supplementation. d /c plan depending on progress. will continue to assess. Goals Bed Mobility Goal Independent Transfer Goal Independent,Front Wheeled Walker Gait Goal Independent,Front Wheel Walker Gait Distance 200 Other Goals improve transfers and ambulation using LRAD/without AD 300 ft mod I Days to Meet Goals 10 Frequency of Treatment Frequency Of Treatment Once a Day Treatment Plan Physical Therapy Treatment Plan Bed Mobility Training,Transfer Training,Gait Training, Therapeutic Exercise,Balance Retraining,Discharge Planning, Hot or Cold Pack,Neuromuscular Re-ed,Coordination Retraining Precautions Other Precautions falls Recommendations To Nursing Amount of Assist Needed 1 Person Assist Discharge Recommendations PT Discharge Recommendations Home with 28/08 Assist Available,Home Health,SNF Rehab,Home vs SNF Transportation Needs at Discharge Private Vehicle,Wheelchair/ Cabulance
[2022-12-06] MEDS: cefTRIAXone 1,000 MG in SODIUM CHLORIDE 0.9% 100 ML 200 MG IV (14:52)
[2022-12-06] MEDS: AZITHROMYCIN 500 MG in DEXTROSE 5% IN WATER 250 ML 250 MG IV (15:38)
--- NOTE | 2022-12-06 16:19 | ST.IPCSEOM ---
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 Mendieta Reason for Referral Pt with gurgly voice and suctioning required in ED. Setting Assessment Location Acute Care Visit Type Note Type Initial evaluation Next Note Type Next Note Type Treatment Note Patient Information Identification Type Name History Per H&P- 77-year-old male with history of hypertension, CHF, COPD (not on O2) presents by EMS from home for generalized weakness and productive cough. Patient was seen for same on 12/03/2022. He was diagnosed with pneumonia. There was concern for possible aspiration, they performed a swallow test and he performed well with thickened liquids. He was discharged back home. He lives on the same property as his son and [id number], and they help him daily. This morning the son went to check on his father as per usual and found him nearly comatose with gurgling respirations and called 911. Patient was hypoxic by EMS in the 80s and placed on 2 L nasal cannula. On arrival patient was suctioned and secretions were evacuated from the patient's oral cavity. After being suctioned the patient stated he felt much better. Pt referred for ST evaluation d/t Pt not passing swallow screen in ER and exhibiting wet gurgly vocal quality. Subjective Observations Pt laying in bed. Nurse Kimo assisted ST with positioning Pt upright in bed for PO trials. Pt reported he was hungry and compliant with PO trials. Pt reports increased difficulties swallowing water last 2 weeks stating, If I swallow water I cough. Pt reports baseline diet soft solids and thin liquids. Pt son present during evaluation. Pt son reports Pt with increased swallowing difficulties this past year since Parkinson's dx about a year ago, specifically increase in phlegm and coughing. Pt first came to the ER on 12/03/22 with PNA where thickened liquids were provided with increase in swallowing ability. Pt son reports since this past Sunday Pt has primarily been consuming pureed solids, some peaches and pears and minimal liquids. Reported by Patient/Caregiver Other Symptoms Coughing,Difficulty swallowing liquids Comment Pt with wet gurgly vocal quality and coughing. Current Diet NPO Baseline Feeding Method Needs some assistance The IDDSI Framework Protocol: IDDSI.1 Objective Assessment Mental Status Alert,Responsive,Cooperative Oral Integrity WFL Dentition Within normal limits Lip Function Mild impairment Pucker Reduced range of motion, Reduced strength Lip Retraction Reduced range of motion Alternating Pucker/Lip Retraction Reduced range of motion Tongue Function Mild impairment Observations of Tongue at Rest Involuntary movement(s) Tongue Protrusion Reduced range of motion, Reduced strength Comment Oral motor exam completed at time of evaluation. Pt with natural dentition, fair condition. Pt with involuntary lower jaw and lingual movements, which may be d/t Parkinson's, Pt reports tremors are inconsistent. Pt with overall reduced strength and ROM with lingual and labial musculature. Food and Liquid Trials Position During Assessment Upright (90 degrees) Liquids Trialed Thin (IDDSI 0),Mildly Thick ( IDDSI 2) Solid Trials Purred (IDDSI 4) Administration Type Cup single sip,Cup consecutive sips,Self-feeding Oral Impairment Mildly impaired Oral Phase Comments For thin liquids Pt demonstrated slight impulsivity characterized by large consecutive sips requiring mod cues to slow rate and take 1 sip at a time, good oral acceptance and containment with all trials. For thin/nectar liquids Pt demonstrated suspected loss of bolus resulting in premature spillage. For pudding Pt demonstrated large bites requiring cues to take smaller bites, prolonged bolus manipulation, extended ap transport, piecemeal deglutition, mild diffuse oral stasis. Pharyngeal Impairment Moderately impaired Pharyngeal Phase Comments For thin liquids Pt demonstrated suspected delay in swallow, weak/reduced laryngeal elevation, audible swallow reflex, multiple swallows to clear single bolus , increas in wet vocal quality , immediate cough x1 and delayed cough reflex x1. Pt with inconsistent wet vocal quality and coughing throughout evaluation prior to PO trials. Nursing assisted in setting up suction for Pt post swallows on thin liquids d/t increase in wet vocal quality and coughing. Pt able to suction independently resulting in clear vocal quality. For nectar thick liquids Pt demonstrated suspected delay in swallow, audible swallow, clear vocal quality, no overt s/s of aspiration. For pudding Pt demonstrated suspected delay in swallow, weak/reduced laryngeal elevation, audible swallow reflex, 1x delayed cough reflex however unable to determine if d/t Pt with baseline cough or if d/t solids. The IDDSI Framework Protocol: IDDSI.1 Findings Swallowing Function Oropharyngeal phase dysphagia Severity of Swallow Impairment Moderately-severely impaired Prognosis Guarded Based on Comorbidities Comment Pt presents with mild oral phase dysphagia and suspected mod-severe pharyngeal phase dysphagia. Pt with baseline wet vocal quality and coughing and overt s/s of aspiration specifically coughing with thin liquids. Pt benefited from sitting upright and use of suction to reduce coughing and wet vocal quality. Impact on Safety and Functioning Risk for aspiration Recommendations Instrumental Assessment Yes Swallowing Treatment Yes Frequency Daily while Pt inpatient Duration Until d/c Recommended Solids Pureed (IDDSI 4) Recommended Liquids Moderately Thick (IDDSI 3) Other Recommendations ST recommends MBS. Order communicated with MD and scheduled for 12/07/22. ST communicated recommendations with Pt, MD, nursing and Pt son. Swallow sign with diet recommendations and safe swallowing strategies placed in Pt room. ST recommends Pt downgraded to no safe PO diet if Pt spikes a fever or increase in respiratory/ swallowing issues. Safety Precautions/Swallowing Supervision needed for all Recommendations meals,Reduce distractions, Remain upright (90 degrees) during all oral intake,Upright position at least 30 minutes after meals,Small bites and sips when eating,Slow rate; swallow between bites, Alternate liquids and solids, Set-up assistance,Strict oral care after intake Medication Recommendations Crushed in Carrier Education Patient/Caregiver Education Described results of evaluation,Patient expressed understanding of evaluation, Patient expressed agreement with goals & treatment plans Goals Short-term Goals STG 1: Patient will utilize safe swallowing strategies 90% of the time with minimal verbal cues in order to consume safest and most efficient least restrictive diet. STG 2: Patient will tolerate therapeutic PO trials of pureed solids and soft solids with no clinical s/s of dysphagia 100% of the time in order to consume least restrictive diet. STG 3: Patient will tolerate therapeutic PO trials of honey /nectar thick liquids with no clinical s/s of aspiration 100 % of the time in order to consume least restrictive diet . Long-term Goals LTG: Patient will tolerate safest and most efficient diet with no clinical s/s of aspiration or dysphagia 100% of the time in order to consume least restrictive diet .
--- NOTE | 2022-12-06 16:57 | PM.HP.1 ---
History of Present Illness History of Present Illness Date Patient Seen: 12/06/22 Time Patient Seen: 14:00 Chief complaint: SOB Narrative: Mr. Adams is a 77M with PMH DM, HTN, smoker, ?COPD who presents to the hospital with cough, weakness and confusion. He was seen in the ED for similar issue on 12/03, diagnosed with a pneumonia, and discharged. He has had a few weeks of swallowing difficulty. He passwed bedside swallow eval during last ED visit. Today family went to check on the patient and found him altered, gurgling. EMS was called and noted he had sats in the 80s. He was placed on oxygen. He was suctioned and felt improved. In the ED workup was done, vitals notable for afebrile, heart rate 80s, sats in the 80s on room air, blood pressure 120s-140s/60s-70s. Labs reviewed by me and notable for WBC 8.1, hgb 10.6, plts 247. BUN 41, 1.93. Procal 0.27. Lactate 1.1. COVID, RSV, flu negative. UA negative for infection. Chest xray reviewed by me and notable for left lobe airspace opacity. He had noted difficulty swallowing. He was ordered for antibiotics and admitted for further treatment. [facility]LY [facility], [facility] Social History household members: none Smoking Status: Current every day smoker alcohol intake: never Meds Home Medications and Allergies Home Medications Medication Instructions Recorded Confirmed Type amlodipine 5 mg tablet 5 mg PO DAILY 11/11/22 12/06/22 History metoprolol succinate 25 mg 25 mg PO DAILY 11/11/22 12/06/22 History tablet,extended release 24 hr amoxicillin 875 mg-potassium 1 tab PO BID #20 tabs 12/03/22 12/06/22 Rx clavulanate 125 mg tablet albuterol sulfate 90 mcg/actuation 2 puff inhalation Q4-6H PRN SOB 12/06/22 12/06/22 History aerosol inhaler aspirin 81 mg tablet 81 mg PO DAILY 12/06/22 12/06/22 History chlorthalidone 25 mg tablet 25 mg PO DAILY 12/06/22 12/06/22 History glipizide 10 mg tablet 10 mg PO BID 12/06/22 12/06/22 History lisinopril 40 mg tablet 40 mg PO DAILY 12/06/22 12/06/22 History metformin 1,000 mg tablet 1,000 mg PO BID 12/06/22 12/06/22 History rosuvastatin 5 mg tablet (Crestor) 5 mg PO DAILY 12/06/22 12/06/22 History Allergies Allergy/AdvReac Type Severity Reaction Status Date / Time No Known Drug Allergies Allergy Unverified 11/11/22 09:46 Review of Systems Review of Systems Narrative: 14 systems reviewed and negative aside from what is noted in HPI Exam Vital Signs (past 8 hours): - 12/06/22 09:00 12/06/22 10:00 12/06/22 10:32 Temperature Pulse Rate 88 92 H 84 Respiratory Rate 24 24 16 Blood Pressure 136/66 148/71 H 125/69 Pulse Oximetry 98 97 97 Oxygen Delivery Method Nasal Cannula Nasal Cannula Room Air Oxygen Flow Rate 3 3 12/06/22 11:28 12/06/22 12:00 12/06/22 12:42 Temperature Pulse Rate 112 H 104 H 92 H Respiratory Rate 20 24 26 H Blood Pressure 137/65 112/65 115/68 Pulse Oximetry 92 91 96 Oxygen Delivery Method Room Air Room Air Room Air Oxygen Flow Rate 12/06/22 13:46 12/06/22 13:46 12/06/22 14:06 Temperature 97.4 F L Pulse Rate 55 L Respiratory Rate 16 Blood Pressure 121/62 Pulse Oximetry 93 97 Oxygen Delivery Method Nasal Cannula Nasal Cannula Oxygen Flow Rate 1 Oxygen Delivery Method Nasal Cannula Oxygen Flow Rate 1 Narrative Exam Narrative: GEN: frail, weak appearing CV: regular rate and rhythm PULM: coarse breath sounds in left lung ABD: soft, nontender, nondistended EXT: warm and well perfused with no edema NEURO: awake, alert, oriented, no focal deficits Objective Labs 12/06/22 08:45 12/06/22 08:45 Labs: Laboratory Results - last 24 hr 12/06/22 12/06/22 12/06/22 08:44 08:45 09:00 WBC 8.1 RBC 3.14 L Hgb 10.6 L Hct 31.7 L MCV 101.1 H MCH 33.8 MCHC 33.4 RDW 14.6 Plt Count 247 Neut % (Auto) 75.5 H Lymph % (Auto) 14.9 L [place] % (Auto) 4.7 Eos % (Auto) 4.1 H Baso % (Auto) 0.8 Neut # (Auto) 6100 Lymph # (Auto) 1200 [place] # (Auto) 400 Eos # (Auto) 300 Baso # (Auto) 100 PT 12.5 INR 1.1 APTT 27 ABG Sample Site Left radial ABG pH 7.49 H ABG pCO2 35.6 ABG pO2 92 ABG HCO3 27 ABG Total CO2 28 H ABG O2 Saturation 98 ABG Base Excess 3.0 FiO2 28 Sodium 142 Potassium 3.8 Chloride 105 Carbon Dioxide 26 BUN 41 H Creatinine 1.93 H Estimated GFR 35 L BUN/Creatinine Ratio 21.2 Glucose 127 H Lactate 1.1 Calcium 9.2 Total Bilirubin 0.5 AST 47 ALT 65 H Alkaline Phosphatase 100 Total Creatine Kinase 39 L Troponin I 0.044 H NT-Pro-B Natriuret Pep 1080 H Total Protein 6.5 Albumin 3.4 L Globulin 3.1 Albumin/Globulin Ratio 1.1 Procalcitonin 0.27 Urine Color Urine Appearance Urine pH Ur Specific [place] Urine Protein Urine Glucose (UA) Urine Ketones Urine Occult Blood Urine Nitrate Urine Bilirubin Urine Urobilinogen Ur Leukocyte Esterase Urine RBC Urine WBC Ur Squamous Epith Cells Urine Bacteria Ur Culture Indicated? SARS-CoV-2 (PCR) Negative Influenza A (RT-PCR) Flu a negative Influenza B (RT-PCR) Flu b negative RSV (PCR) Negative 12/06/22 10:12 WBC RBC Hgb Hct MCV MCH MCHC RDW Plt Count Neut % (Auto) Lymph % (Auto) [place] % (Auto) Eos % (Auto) Baso % (Auto) Neut # (Auto) Lymph # (Auto) [place] # (Auto) Eos # (Auto) Baso # (Auto) PT INR APTT ABG Sample Site ABG pH ABG pCO2 ABG pO2 ABG HCO3 ABG Total CO2 ABG O2 Saturation ABG Base Excess FiO2 Sodium Potassium Chloride Carbon Dioxide BUN Creatinine Estimated GFR BUN/Creatinine Ratio Glucose Lactate Calcium Total Bilirubin AST ALT Alkaline Phosphatase Total Creatine Kinase Troponin I NT-Pro-B Natriuret Pep Total Protein Albumin Globulin Albumin/Globulin Ratio Procalcitonin Urine Color Yellow Urine Appearance Clear Urine pH 5.0 Ur Specific [place] 1.015 Urine Protein Trace H Urine Glucose (UA) Negative Urine Ketones Negative Urine Occult Blood 1+ H Urine Nitrate Negative Urine Bilirubin Negative Urine Urobilinogen 0.2 Ur Leukocyte Esterase 1+ H Urine RBC 1-5/hpf Urine WBC 1-5/hpf Ur Squamous Epith Cells None seen Urine Bacteria None seen Ur Culture Indicated? Cult not indicated SARS-CoV-2 (PCR) Influenza A (RT-PCR) Influenza B (RT-PCR) RSV (PCR) Assessment & Plan Assessment & Plan narrative: 1. Acute hypoxemic respiratory failure secondary to pneumonia from likely aspiration -chest xray with left opacity consistent with pneumonia -requiring oxygen for sats initially in the 80s -start on antibiotics with azithromycin and ceftriaxone -speech eval ordered and noted dysphagia and recommended modified diet -modified barium swallow ordered -consider steroids for reactive airway as he is a smoker, if he is not improving 2. Hypertension -hold oral meds for now 3. Type 2 diabetes -hold metformin -check glucose achs -insulin sliding scale ordered CODE: DNR/DNI Proxy: Chilango Adams, son I have discussed plan and obtained history from the patient. I have discussed plan of care with ED physician and bedside nurse. I have reviewed labs, imaging. Quality MIPS - Meds 'Current medications' to include all prescriptions, [id number] products, herbals, cannabis/cannabidiol products, and vitamin/mineral/dietary (nutritional) supplements. I have utilized all available resources to obtain, update, or review the patient?s current medications. [If Yes, STOP here]: Yes
[2022-12-07] VITALS (10 sets, daily range): BP systolic 109–114; BP diastolic 54–69; PULSE 18–93; RESP 18–96; TEMP 36.2–36.8; O2SAT 93–98
[2022-12-07] MEDS: ACETAMINOPHEN 325 MG TABLET 650 MG PO ×3 (00:22→18:05)
[2022-12-07] MEDS: MELATONIN 3 MG TABLET 9 MG PO ×2 (00:34→20:46)
[2022-12-07 07:21] LABS: Add Manual Diff / Slide Review NO; Basophils Absolute Auto 100 /uL (0-100); Basophils Percent Auto 0.7 % (0-2); Eosinophils Absolute Auto 400 /uL (0-450); Eosinophils Percent Auto 5.3 % (2-4); Hematocrit 28.7 % (41-53); Hemoglobin 9.8 g/dL (13.5-17.5); Lymphocytes Absolute Auto 1500 /uL (1100-4500); Lymphocytes Percent Auto 19.2 % (25-40); Mean Corpuscular HGB Conc 34.1 % (30-36); Mean Corpuscular Hemoglobin 34.1 PG (26-34); Mean Corpuscular Volume 99.8 fL (80-100); Monocytes Absolute Auto 400 /uL (0-900); Monocytes Percent Auto 5.4 % (3-14); Neutrophils Absolute Auto 5600 /uL (1500-7000); Neutrophils Percent Auto 69.4 % (50-75); Platelet Count 216 X10^3/uL (150-400); Red Blood Cell Count 2.87 X10^6/uL (4.5-5.9); Red Cell Distribution Width 14.3 % (11.6-14.8)
[2022-12-07 07:38] LABS: BUN Creatinine Ratio 19.2 (6-22); Blood Urea Nitrogen 30 mg/dL (9-20); Calcium 8.8 mg/dL (8.4-10.2); Carbon Dioxide 27 mmol/L (22-32); Chloride 107 mmol/L (98-107); Estimated Glomerular Filt Rate 45 mL/min (>60); Glucose 91 mg/dL (80-110); HEMOLYSIS < 15 (0-50); Potassium 3.4 mmol/L (3.4-5.1); Sodium 140 mmol/L (137-145)
[2022-12-07] MEDS: ENOXAPARIN 40 MG/0.4 ML SYRINGE SUBCUT (09:04)
--- NOTE | 2022-12-07 10:25 | PC.NURSE ---
Day shift: Off unit for procedure at approx 1025
--- NOTE | 2022-12-07 10:30 | DI.RAD.S_ITS ---
PROCEDURE: FL BARIUM SWALLOW W SPEECH INDICATIONS: dysphagia COMPARISON: None. TECHNIQUE: Examination was conducted in conjunction with speech pathology per standard protocol. In the lateral projection, filming was performed of the patient swallowing. AP projection filming may also be performed with patient swallowing. COMPARISON: FINDINGS: Function: The patient demonstrated aspiration with multiple consistencies of liquid from thin liquid to honey consistency. Morphology: No cricopharyngeal bar is identified. No cervical esophageal webs. No Zenker's diverticulum. No strictures. IMPRESSION: Aspiration with multiple consistencies from thin liquid to honey consistency. Please see speech pathology report for detailed findings. Dictated by: Gal Noel M.D. on 12/08/2022 at 13:24 Approved by: Gal Noel M.D. on 12/08/2022 at 13:31
[2022-12-07] MEDS: POTASSIUM CHLORIDE 20 MEQ TAB 40 MEQ PO (11:21)
[2022-12-07] MEDS: INSULIN LISPRO 100 UNIT/ML 3ML VIAL SUBCUT ×3 (11:44→20:55)
--- NOTE | 2022-12-07 11:54 | P.PN_ITS ---
Subjective Subjective Interval history: Patient awaiting MBS today. Still having problems swallowing liquids. Now off O2 and on room air. Exam Vital Signs (past 8 hours): - 12/07/22 06:16 12/07/22 08:00 12/07/22 08:37 Temperature 98.2 F Pulse Rate 18 L Respiratory Rate 96 H Blood Pressure 114/69 Pulse Oximetry 95 Oxygen Delivery Method Nasal Cannula Room Air Oxygen Flow Rate 2 12/07/22 10:15 Temperature Pulse Rate Respiratory Rate Blood Pressure Pulse Oximetry 93 Oxygen Delivery Method Room Air Oxygen Flow Rate Oxygen Delivery Method Room Air Oxygen Flow Rate 2 Narrative Exam Narrative: GEN: frail, weak appearing CV: regular rate and rhythm PULM: coarse breath sounds in left lung ABD: soft, nontender, nondistended EXT: warm and well perfused with no edema NEURO: awake, alert, oriented, no focal deficits Objective Labs 12/07/22 07:00 12/07/22 07:00 Labs: Laboratory Results - last 24 hr 12/07/22 07:00 WBC 8.0 RBC 2.87 L Hgb 9.8 L Hct 28.7 L MCV 99.8 MCH 34.1 H MCHC 34.1 RDW 14.3 Plt Count 216 Neut % (Auto) 69.4 Lymph % (Auto) 19.2 L [place] % (Auto) 5.4 Eos % (Auto) 5.3 H Baso % (Auto) 0.7 Neut # (Auto) 5600 Lymph # (Auto) 1500 [place] # (Auto) 400 Eos # (Auto) 400 Baso # (Auto) 100 Sodium 140 Potassium 3.4 Chloride 107 Carbon Dioxide 27 BUN 30 H Creatinine 1.56 H Estimated GFR 45 L BUN/Creatinine Ratio 19.2 Glucose 91 Calcium 8.8 PFSH Social History household members: none Smoking Status: Current every day smoker alcohol intake: never Assessment & Plan Assessment & Plan narrative: 1. Acute hypoxemic respiratory failure secondary to pneumonia from likely aspiration -chest xray with left opacity consistent with pneumonia -requiring oxygen for sats initially in the 80s -start on antibiotics with azithromycin and ceftriaxone -speech eval ordered and noted dysphagia and recommended modified diet -modified barium swallow ordered, pending read -now off O2 and on room air as of 12/07 2. Hypertension -hold oral meds for now 3. Type 2 diabetes -hold metformin -check glucose achs -insulin sliding scale ordered CODE: DNR/DNI Proxy: abundio Tabor Dispo: Pending MBS results. PT rec home with assistance.
--- NOTE | 2022-12-07 12:23 | PT.IPTN ---
Physical Therapy Treatment Note M2 PT-IP Current Condition Start: 12/06/22 16:25 Freq: NEEDED Status: Active Protocol: Document 12/06/22 14:25 AB (Rec: 12/06/22 16:36 AB [id number]) Physical Therapy Current Condition Current Condition Evaluation Date 12/06/22 Treatment Diagnosis PNA; difficulty in walking Onset Date 12/06/22 M3 PT-IP Subjective Start: 12/06/22 16:25 Freq: NEEDED Status: Active Protocol: Document 12/07/22 12:49 TS (Rec: 12/07/22 13:01 TS [id number]) Subjective Physical Therapy Visit Type Type Treatment Note Visit Start Time 12:23 Visit Stop Time 12:38 Total Visit Minutes 15 Notes OT present Number of STONE SAWYER Visits 1 Physical Therapy Visit Comments Patient Comments Pt found resting in bed, is agreeable to work with PT. M4 PT-IP Mobility and Gait Start: 12/06/22 16:25 Freq: NEEDED Status: Active Protocol: Document 12/07/22 12:49 TS (Rec: 12/07/22 13:01 TS [id number]) PT-Bed Mobility Assessment Supine to Sit Supine to Sit Standby Assistance Scooting Scooting to Edge of Bed Contact Guard Assistance PT-Transfer Assessment Sit to and From Stand Sit to and from Stand Contact Guard Assistance,1 Person Assistance,Use of Upper Extremities Equipment Transfer Assistive Device Gait Belt,Front Wheeled Walker Orthotic/Prosthetic Devices or Brace: No Comments Mobility Comments Pt found resting in bed, on RA , is agreeable to PT. Supine to sit SBA with HOB elevated 50D with use of bed railing. He scooted to EOB CGA with BUE support pushing self forward, he is impulsive to stand before therapist is ready, required cues to remain sitting. Sit to stand CGA from elevated bed, has some retroleaning, pt braces LEs against bed to assist with balance. He ambulated ~30' in SBA/CGA with FWW, he is unsteady with gait and has a very NBOS, multiple instances of feet crossing each other, required cues to keep WBOS. He stood at sink ~4 mins with single UE on FWW. He ambulated to chair. Was left with OT for continued treatment, chair alarm on. Gait Assessment Gait Gait Assistance Required: Standby Assistance,Contact Guard Assist Distance (Feet) 30 Able to Maintain Weight Bearing Status Yes During Gait Assistive Devices Assistive Device Gait Belt,Front Wheeled Walker Orthotic/Prosthetic Devices or Brace: No Gait Deviations General Gait Pattern Decreased Stride Length, Decreased Feet Clearance Factors Limiting Gait Function Factors Limiting Gait Function Decreased Activity Tolerance, Decreased Strength,Difficulty Following Directions,Pain,Poor Balance,Poor Safety Awareness Comments Gait Comments See mobility comments PT-Balance Assessment Sitting Balance and Reactions Static Sitting Balance Ability Good Dynamic Sitting Balance Ability Good Standing Balance and Reactions Static Standing Balance Ability Fair Dynamic Standing Balance Ability Fair Device Used FWW M5 PT-IP Objective Assessments Start: 12/06/22 16:25 Freq: NEEDED Status: Active Protocol: Document 12/06/22 14:25 AB (Rec: 12/06/22 16:36 AB [id number]) Orientation Orientation/Cognition Level of Alertness Alert Orientation Name,Place,Situation Safety Awareness Decreased Safety Awareness Memory Description Short Term Impaired Gross Range of Motion Lower Extremity ROM Assessment Within Functional Limits Strength Lower Extremity Strength Hip 4-/5 Knee 4-/5 Sensation Assessment Sensation Gross Sensation WNL Muscle Tone Muscle Tone WNL Yes M6 PT-IP Treatment Start: 12/06/22 16:25 Freq: NEEDED Status: Active Protocol: Document 12/07/22 12:49 TS (Rec: 12/07/22 13:01 TS [id number]) Physical Therapy Treatment Education Education Provided Safety M7 PT-IP Assessment and Plan Start: 12/06/22 16:25 Freq: NEEDED Status: Active Protocol: Document 12/07/22 12:49 TS (Rec: 12/07/22 13:01 TS [id number]) PT Summary Assessment and Plan Potential Rehabilitation Potential Fair Summary Impairments Pain,ROM,Strength,Balance, Coordination,Sensation,Tone, Cognition,Bed Mobility, Transfers,Gait,Activity Tolerance Progress Towards Goals Progressing Toward Goals Assessment Summary Chilango is making some progress with his mobility this session. He is SBA with HOB elevated 50D and use of handrails for supine to sit. He is CGA for sit to stands with bracing of back of LEs against bed to assist in standing. He ambulated ~30' with FWW SBA/CGA. He is unsteady on his feet with very NBOS and multiple instances of crossing feet. PT recommends home 24/7 w/HHPT vs SNF at this time. Pt is a high falls risk. Goals Bed Mobility Goal Independent Transfer Goal Independent,Front Wheeled Walker Gait Goal Independent,Front Wheel Walker Gait Distance 200 Other Goals improve transfers and ambulation using LRAD/without AD 300 ft mod I Days to Meet Goals 10 Frequency of Treatment Frequency Of Treatment Once a Day Treatment Plan Physical Therapy Treatment Plan Bed Mobility Training,Transfer Training,Gait Training, Therapeutic Exercise,Balance Retraining,Discharge Planning, Hot or Cold Pack,Neuromuscular Re-ed,Coordination Retraining Precautions Other Precautions falls Recommendations To Nursing Amount of Assist Needed 1 Person Assist Discharge Recommendations PT Discharge Recommendations Home with 28/08 Assist Available,Home Health,SNF Rehab,Home vs SNF Transportation Needs at Discharge Private Vehicle,Wheelchair/ Cabulance
--- NOTE | 2022-12-07 12:23 | PT.IPTN ---
Physical Therapy Treatment Note M2 PT-IP Current Condition Start: 12/06/22 16:25 Freq: NEEDED Status: Active Protocol: Document 12/06/22 14:25 AB (Rec: 12/06/22 16:36 AB [id number]) Physical Therapy Current Condition Current Condition Evaluation Date 12/06/22 Treatment Diagnosis PNA; difficulty in walking Onset Date 12/06/22 M3 PT-IP Subjective Start: 12/06/22 16:25 Freq: NEEDED Status: Active Protocol: Document 12/07/22 12:49 TS (Rec: 12/07/22 13:01 TS [id number]) Subjective Physical Therapy Visit Type Type Treatment Note Visit Start Time 12:23 Visit Stop Time 12:38 Total Visit Minutes 15 Notes OT present Number of PASSENGER INTERLINE CLERK Visits 1 Physical Therapy Visit Comments Patient Comments Pt found resting in bed, can respond to questions but has slurred speech, is agreeable to work with PT. M4 PT-IP Mobility and Gait Start: 12/06/22 16:25 Freq: NEEDED Status: Active Protocol: Document 12/07/22 12:49 TS (Rec: 12/07/22 13:01 TS [id number]) PT-Bed Mobility Assessment Supine to Sit Supine to Sit Standby Assistance Scooting Scooting to Edge of Bed Contact Guard Assistance PT-Transfer Assessment Sit to and From Stand Sit to and from Stand Contact Guard Assistance,1 Person Assistance,Use of Upper Extremities Equipment Transfer Assistive Device Gait Belt,Front Wheeled Walker Orthotic/Prosthetic Devices or Brace: No Comments Mobility Comments Pt found resting in bed, on RA , is agreeable to PT. Supine to sit SBA with HOB elevated 50D with use of bed railing. He scooted to EOB CGA with BUE support pushing self forward, he is impulsive to stand before therapist is ready, required cues to remain sitting. Sit to stand CGA from elevated bed, has some retroleaning, pt braces LEs against bed to assist with balance. He ambulated ~30' in SBA/CGA with FWW, he is unsteady with gait and has a very NBOS, multiple instances of feet crossing each other, required cues to keep WBOS. He stood at sink ~4 mins with single UE on FWW. He ambulated to chair. Was left with OT for continued treatment, chair alarm on. Gait Assessment Gait Gait Assistance Required: Standby Assistance,Contact Guard Assist Distance (Feet) 30 Able to Maintain Weight Bearing Status Yes During Gait Assistive Devices Assistive Device Gait Belt,Front Wheeled Walker Orthotic/Prosthetic Devices or Brace: No Gait Deviations General Gait Pattern Decreased Stride Length, Decreased Feet Clearance Factors Limiting Gait Function Factors Limiting Gait Function Decreased Activity Tolerance, Decreased Strength,Difficulty Following Directions,Pain,Poor Balance,Poor Safety Awareness Comments Gait Comments See mobility comments PT-Balance Assessment Sitting Balance and Reactions Static Sitting Balance Ability Good Dynamic Sitting Balance Ability Good Standing Balance and Reactions Static Standing Balance Ability Fair Dynamic Standing Balance Ability Fair Device Used FWW M5 PT-IP Objective Assessments Start: 12/06/22 16:25 Freq: NEEDED Status: Active Protocol: Document 12/06/22 14:25 AB (Rec: 12/06/22 16:36 AB [id number]) Orientation Orientation/Cognition Level of Alertness Alert Orientation Name,Place,Situation Safety Awareness Decreased Safety Awareness Memory Description Short Term Impaired Gross Range of Motion Lower Extremity ROM Assessment Within Functional Limits Strength Lower Extremity Strength Hip 4-/5 Knee 4-/5 Sensation Assessment Sensation Gross Sensation WNL Muscle Tone Muscle Tone WNL Yes M6 PT-IP Treatment Start: 12/06/22 16:25 Freq: NEEDED Status: Active Protocol: Document 12/07/22 12:49 TS (Rec: 12/07/22 13:01 TS [id number]) Physical Therapy Treatment Education Education Provided Safety M7 PT-IP Assessment and Plan Start: 12/06/22 16:25 Freq: NEEDED Status: Active Protocol: Document 12/07/22 12:49 TS (Rec: 12/07/22 13:01 TS [id number]) PT Summary Assessment and Plan Potential Rehabilitation Potential Fair Summary Impairments Pain,ROM,Strength,Balance, Coordination,Sensation,Tone, Cognition,Bed Mobility, Transfers,Gait,Activity Tolerance Progress Towards Goals Progressing Toward Goals Assessment Summary [place] is making some progress with his mobility this session. He is SBA with HOB elevated 50D and use of handrails for supine to sit. He is CGA for sit to stands with bracing of back of LEs against bed to assist in standing. He ambulated ~30' with FWW SBA/CGA. He is unsteady on his feet with very NBOS and multiple instances of crossing feet. PT is recommending acute rehab to improve strrength and balance and would benefit from continued speech therapy. Goals Bed Mobility Goal Independent Transfer Goal Independent,Front Wheeled Walker Gait Goal Independent,Front Wheel Walker Gait Distance 200 Other Goals improve transfers and ambulation using LRAD/without AD 300 ft mod I Days to Meet Goals 10 Frequency of Treatment Frequency Of Treatment Once a Day Treatment Plan Physical Therapy Treatment Plan Bed Mobility Training,Transfer Training,Gait Training, Therapeutic Exercise,Balance Retraining,Discharge Planning, Hot or Cold Pack,Neuromuscular Re-ed,Coordination Retraining Precautions Other Precautions falls Recommendations To Nursing Amount of Assist Needed 1 Person Assist Discharge Recommendations PT Discharge Recommendations Acute Rehab Transportation Needs at Discharge Private Vehicle,Wheelchair/ Cabulance
--- NOTE | 2022-12-07 12:39 | CM.DANOTE ---
Addendum entered by ISABEL Spencer 12/07/22 15:44: ADD: SW met bedside with pt and son again and pt feels he is at his baseline but PT recommending SNF rehab initially. SW provided the SNF Choice List to pt and son and if SNF needed preference is 1) [facility] for location 2) [facility]. SW called [facility] admissions and currently no bed available for likely another 5 days. No referral sent yet. SW called [facility] and they have beds and willing to review. Per PT/OT/ST, feel pt might benefit from Acute Inpt Rehab at d/c and per MD and ST they might recommend a PEG tube for feeding and pt and son considering and thinking about this. SW made referral to [facility] in [place] and currently no beds either until 5 or 6 days. SW made referral to [facility] and left [facility] requesting review and bed availability. Plan: SW to follow closely for [facility] review and call back from [facility] and further discussion with pt and son to finalize discharge plan. ISABEL Spencer Original Note: Patient is a 77 yo male who was admitted on 12/06/22 after failing outpt po abx for Pneumonia. Pt has [facility] and [facility] for insurance and his PCP is not lisged. EMR was reviewed. Per MD, pt with hx of COPD and Parkinsons and was in the ED recently and discharged on oral abx for pneumonia and failed out and now with IV-Abx and needing O2 and not yet stable for d/c. ST montero recommends a modified diet and Modified Barium Swallow today. PT, recommending SNF vs HH pending progress with PT. SW met bedside with pt and son and explained role and pt confirms he lives alone in [place] but son and DIL live nearby and check on him daily. Pt has no hx of admission to and pt and son confirm that pt has no hx of HH or SNF. SW explained services and coverage of SNF and HH and both unsure what pt might need at d/c and want to see how he does with PT. They confirm that pt has been mostly independent with ADLs but they have noticed pt needing increased assist since his Parkinson's dx and over the past couple weeks. No other supportive services in place at this time. Pt confirms he has Medicare as well but hospital stay being billed to [facility]. SW explained if SNF, then would likely go under his Medicare insurance. Plan: SW to follow closely for further PT today to determine SNF vs HH pending progress and how pt's MBS goes with ISABEL Chan Discharge Planning/Care Management CM Discharge Assessment Start: 12/07/22 12:33 Freq: Status: Active Protocol: Document 12/07/22 12:33 BF (Rec: 12/07/22 12:36 BF [id number]) Discharge Planning Assessment Assigned Cathead Operator ISABEL Hunt DPOA/Assigned Designee Name abundio Adams II Contact Information [phone] Advance Directives? No Advance Directives on File No History Provided By Patient,Family Member,Medical Record Has Patient been admitted in last 30 No days? Prior Living Arrangements House Household Members none Type of transporation used prior to Relies on Others admit Independent with ADL's Yes: mostly Is patient alert and oriented? Yes: mostly Needs Assistance With Meal Prep,Managing Medications ,Home Chores / Shopping Caregiver for Another No DME Already Rented / Owned Elevated Toilet Seat,FWW / Walker Patient/Family Preference [facility] Facility,Home with Home Health Comment SNF vs HH pending progress with PT Barriers to Discharge No Discharge Plan Home with Home Health Transportation Arrangement Son bedside and can transport if safe for home Additional Comment Waiting for further PT/OT today to determine needs for referral Whiteboard Updated in Patient Room with Yes name and ext. # of Cathead Operator Review Status In Process Please Provide Date Initial DC 12/07/22 Assessment Was Performed Next Review Type Continued Stay Review
--- NOTE | 2022-12-07 12:44 | OT.IP.EVAL ---
Occupational Therapy Inpatient Evaluation/Re-Eval . M1 PT/OT-IP Prior Functional Status Start: 12/07/22 13:32 Freq: NEEDED Status: Active Protocol: Document 12/07/22 13:32 [facility] (Rec: 12/07/22 14:05 [facility] [id number]) Medical Review Prior Functional Status Medical History Reviewed Yes Communication able to answer questions; slow speech Mobility and Gait pt stated that he is independent with all mobilities and ambulation without AD, pt states tends to furniture cruise in his house. Activities of Daily Living and IADL's Pt states completely independent with all ADl and IADL need except for grocery shopping. Social History Household Members none Living Arrangements House Number of Floors (Floors) One Floor Number of Stairs To Enter/Railing? no steps to enter Home Environment High Toilet,Walk in Shower Home Equipment Front Wheel Walker,Straight Cane,Grab Bars Near Toilet, Grab Bars In Shower Additional Social History Comment pt stated that his son or DIL checks on him daily. Son/DIL lives ~ 200 feet away per pt. M2 OT-IP Current Condition Start: 12/07/22 13:32 Freq: Status: Active Protocol: Document 12/07/22 13:32 [facility] (Rec: 12/07/22 14:05 [facility] [id number]) Occupational Therapy Current Condition Current Condition Evaluation Date 12/07/22 Treatment Diagnosis PNA, weakness Diagnosis Onset Date 12/06/22 M3 OT- IP Subjective and Pain Start: 12/07/22 13:32 Freq: Status: Active Protocol: Document 12/07/22 13:32 [facility] (Rec: 12/07/22 14:05 [facility] [id number]) OT- Subjective Occupational Therapy Visit Type Type Initial Evaluation Visit Start Time 12:24 Visit Stop Time 12:44 Total Visit Minutes 20 Occupational Therapy Visit Comments Patient Comments Pt agreed to get up for lunch, CONTINUITY WRITER also present during OT eval. Patient/Caregiver Goals To get better. OT Pain Assessment Pain When Pain Assessed At Rest Pain Present Pain Present Denied Pain M4 OT- IP ADL's Start: 12/07/22 13:32 Freq: Status: Active Protocol: Document 12/07/22 13:32 [facility] (Rec: 12/07/22 14:05 [facility] [id number]) OT [id number] Comments OT Self-Feeding Comments Pt is on honey thick liquid and pureed. OT ADL-Grooming General Evaluation Grooming Ability Standby Assistance Areas Needing Assistance Retrieving/Set-up of Grooming Items Comments OT Grooming Comments Pt able to stand with the FWW for grooming needs. OT ADL-Oral Care General Eval Oral Care Ability Standby Assistance Areas of Assistance Retrieving/Set-Up of Items Comments Oral Care Comments Able to have pt use swabs with mouth wash ringed out to swab his mouth. OT ADL-Dressing General Eval Lower Body Dressing Ability Standby Assistance Comments OT Dressing Comments Pt able to comfortably cross his legs over to andre/doff his socks. OT ADL-Toileting General Evaluation Toileting Ability Total Assistance Comments OT Toileting Comments [place] in place. OT ADL-Bathing Comments OT Bathing Comments At this time pt will benefit from a shower chair at home to use. M5 OT- IP IADL's Start: 12/07/22 13:32 Freq: Status: Active Protocol: Document 12/07/22 13:32 [facility] (Rec: 12/07/22 14:05 [facility] [id number]) OT-Instrumental Activities of Daily Living Deficits IADL Deficits Identified Deficits Home Safety Awareness Awareness of Need for Assistance at Home Good Awareness Ability to Problem Solve Emergency Able to Problem Solve Situations Medication Management Medication Management Comments Pt states does his own. Money Management Money Management Comments Pt states does his own. Meal Preparation Meal Preparation Comments Pt states does his own. Burglar Alarm Inspector Burglar Alarm Inspector Comments Pt just gets assist for driving and grocery shopping. Driving Driving Caregiver Provides Assist M6 OT- IP Functional Cognition Start: 12/07/22 13:32 Freq: Status: Active Protocol: Document 12/07/22 13:32 [facility] (Rec: 12/07/22 14:05 [facility] [id number]) Cognitive Factors Limiting Selfcare Function Cognitive Ability Level of Alertness Alert Patient Orientation Name,Age,Birthday,Month,Date, Year,Day of Week,Place, Situation Attention Span Ability Capable of Focused Attention, Capable of Sustained Attention Ability to Follow Commands Able to Follow One Step Commands Cognitive Comments Cognitive Assessment Comments Pt able to follow commands for ADl and mobility needs. Pt is a little hear of hearing. OT- Vision and Hearing OT- Hearing Assessment OT- Hearing Assessment Hearing Impaired OT- Vision Assessment Visual Acuity WFL Visual Attentiveness WFL Occular Pursuits WFL Visual Convergence WFL Visual Presley WFL M7 OT- IP Mobility and Balance Start: 12/07/22 13:32 Freq: Status: Active Protocol: Document 12/07/22 13:32 [facility] (Rec: 12/07/22 14:05 [facility] [id number]) OT- Bed Mobility Assessment Supine to Sit Supine to Sit Assist Standby Assistance Scooting Scooting to Edge of Bed Contact Guard Assistance OT-Transfer Assessment Sit to and From Stand Sit to and from Stand Contact Guard Assistance, Minimal Assistance Transfers Transfer Ability Contact Guard Assistance Technique Transfer Destination Bed,Chair Transfer Technique Stand Step Pivot Devices Transfer Assistive Devices Gait Belt,Front Wheeled Walker Comments Mobility Comments CGA to [id number] to stand depending on the height of the surface. In addition, pt tends to use the back on his legs on the bed to assist to stand. Pt CGA with FWW and tends to keep his feet close and needign cues to keep his feet apart for his balance. OT- Balance Assessment Sitting Balance and Reactions Static Sitting Balance Ability Good Dynamic Sitting Balance Ability Good Standing Balance and Reactions Static Standing Balance Ability Fair Dynamic Standing Balance Ability Poor without FWW M8 OT- IP Objective Assessments Start: 12/07/22 13:32 Freq: Status: Active Protocol: Document 12/07/22 13:32 [facility] (Rec: 12/07/22 14:05 [facility] [id number]) OT Gross Range of Motion Upper Extremity Range of Motion Assessment Bilaterally Impaired ROM Impairments BUE 0-90 shoulder flexion OT Strength Comments Strength Comments 4+/5 for available ROM OT-Muscle Tone Assessment Muscle Tone WNL Yes M9 OT- IP Assessment and Plan Start: 12/07/22 13:32 Freq: Status: Active Protocol: Document 12/07/22 13:32 [facility] (Rec: 12/07/22 14:05 [facility] [id number]) OT Summary Assessment and Plan Potential Rehabilitation Potential Excellent Analytic Complexity at Evaluation Moderate Summary OT Impairments Range of Motion,Strength, Balance,Functional Mobility, Self-Feeding,Grooming,Dressing ,Toileting,Bathing,Toilet Transfers,Shower Transfers Progress Towards Goals Progressing Toward Goals Assessment Summary Pt MOD complexity and main barriers are swallowing and per ENGRAVER ORNAMENTAL DESIGN eval pt on honey thick and pureed, decreased dynamic balance, and decreased activity tolerance due to his PNA. Pt is very motivated, cooperative and would greatly benefit from acute rehab to be able to focus on his swallowing to upgrade his diet and for his dynamic balance needs as prior pt did not use a device at home but would furniture cruise. Pt has family that lives 200ft away from him who are available to assist. Goals Self-Feeding Goal Independent Grooming Goal Independent Dressing Goal Independent Toileting Goal Independent Bathing Goal Independent Toilet Transfer Goal Independent Shower Transfer Goal Independent Days to Meet Goals 15 Frequency of Treatment Frequency Of Treatment Once a Day Treatment Plan OT Treatment Plan ADL Training,Functional Mobility,Patient/Family Education,Discharge Planning Discharge Recommendations OT Discharge Recommendations Acute Rehab Transportation Needs at Discharge Private Vehicle
[2022-12-07] MEDS: cefTRIAXone 1,000 MG in SODIUM CHLORIDE 0.9% 100 ML 200 MG IV (13:00)
[2022-12-07] MEDS: AZITHROMYCIN 500 MG in DEXTROSE 5% IN WATER 250 ML 250 MG IV (14:09)
--- NOTE | 2022-12-07 15:38 | ST.SWALLOW ---
Visit Care Team Role Provider Type Doctor MD Steve Primary Care Provider Non-Staff Specialty: Medical Address: Phone: Fax: Email: Marisol Galaviz MD Emergency Provider Physician Referring Provider Specialty: Emergency Medicine Address: [address] [place], [address] Email: [email or web address] Terrence Mendieta MD Admit Provider Physician Attending Provider Specialty: Hospitalist Address: [address] [place] [address], [phone] Fax: Email: [email or web address] Modified Barium Swallow Study AUDIT CONTROL CLERK Modified Barium Swallow Study Start: 12/07/22 12:26 Freq: Status: Active Protocol: Document 12/07/22 12:26 DH (Rec: 12/07/22 12:57 DH [id number]) Modified Barium Swallow Study Total Time Visit Start Time 10:45 Visit Stop Time 12:15 Total Visit Minutes 90 Referral Referring Physician hospitalist Reason for Referral dysphagia Setting Setting Acute Care Patient Information Patient History Per H&P- 77-year-old male with history of hypertension, CHF, COPD (not on O2) presents by EMS from home for generalized weakness and productive cough. Patient was seen for same on 12/03/2022. He was diagnosed with pneumonia. There was concern for possible aspiration, they performed a swallow test and he performed well with thickened liquids. He was discharged back home. He lives on the same property as his son and [id number], and they help him daily. This morning the son went to check on his father as per usual and found him nearly comatose with gurgling respirations and called 911. Patient was hypoxic by EMS in the 80s and placed on 2 L nasal cannula. On arrival patient was suctioned and secretions were evacuated from the patient's oral cavity. After being suctioned the patient stated he felt much better. Following clinical bedside eval, MBS recommended to visualize oropharyngeal swallow function and guide appropriate treatment. Patient Positioning Position View Lat-A/P Imaging Lateral View Textures Administered Trials Presented Thin Liquid via Spoon (IDDSI 0 ),Mildly Thick Liquid via Spoon (IDDSI 2),Moderately Thick Liquid via Spoon (IDDSI 3),Puree (IDDSI 4),Regular ( IDDSI 7) Barium Tablet No The IDDSI Framework Protocol: IDDSI.1 Oral Impairment Source: The Modified Barium Swallow Impairment Profile (MBSImP??) Lip Closure No labial escape Tongue Control During Bolus Hold Posterior escape of greater than half of bolus Bolus Preparation/Mastication Slow prolonged chewing/mashing with complete re-collection Bolus Transport/Lingual Motion Repetitive/disorganized tongue motion Oral Residue Residue collection on oral structures Location Tongue Initiation of Pharyngeal Swallow Bolus head at pyriforms Pharyngeal Impairment Source: The Modified Barium Swallow Impairment Profile (MBSImP??) Soft Palate Elevation No bolus between soft palate & pharyngeal wall Laryngeal Elevation Min.sup.move. thyroid cart. w/ min.approx.arytenoids to epiglot.petiole Anterior Hyoid Excursion No anterior movement Epiglottic Movement No inversion Laryngeal Vestibular Closure None; wide column air/contrast in laryngeal vestibule Pharyngeal Stripping Wave Present - diminished Pharyngoesophageal Segment Opening Minimal distension/minimal duration; marked obstruction of flow Tongue Base Retraction Trace column of contrast/air betwn tongue base & post. pharyngeal wall Pharyngeal Residue Minimal to no pharyngeal clearance Location Diffuse (>3 areas) Additional Pharyngeal Impairment Pt demonstrated delayed Observations swallow initiation, with bolus completely into the pyriforms in some instances befor a swallow was initiation, followed by reduced to min movement of all pharyngeal structures, resulting in cassia aspiration of both thin and nectar/mildly thick liquids during and after the swallow, and trace aspiration during the swallow of moderately thick liquids with cassia aspiration after the swallow from diffuse residue and pooling on base of tongue, in valleculae and in pryiforms. Additionally concerning was minimal clearance of residue/ pooling despite multiple cued hard swallows with limited UES opening. Pt demonstrated limited reflexive cough response (silent aspiration) and min/no movement of boluses out of the airway with cued coughs. Additionally, pt demonstrated signifigant fatigue from small amount of trials, concerning for nutrition/hydration. A/P View Textures Administered Trials Presented Puree (IDDSI 4) The IDDSI Framework Protocol: IDDSI.1 A/P View Observations Pharyngeal Contraction Incomplete (Pseudodiverticulae ) Additional A-P Observations single trial of moderately thick liquid in AP view, with majority of bolus remaining in pryiforms despite multiple swallow attempts. Pt demonstrated max fatigue at this point and min pharyngeal movement. Unable to assess esophageal movement in AP. Clinical Impressions Dysphagia Type Oral,Pharyngeal Findings VFSS assessment today revealed severe oropharyngeal dysphagia, with delayed swallow initiation, impaired pharyngeal constriction, limited epiglottic inversion, limited UES opening, and mod/ severe residue/pooling base of tongue, valleculae, pyriform sinuses, pharyngeal wall. Cassia aspiration observed during the swallow with liquids and post swallow with all intake from residue/pooling and poor UES opening. Given limited strength and fatigue observed from minimal trials, combined with minimum cough response, reduced breath support and reduced laryngeal sensitivity possibly d/t COPD, all increasing risk of asp and asp pna, pt is not completely safe with any diet level, however if patient chooses to continue oral intake, safest options would be moderately thickened liquids and puree solids but only following aggressive oral care. ST would recommend tube feeding at least temporarily to increase intake and reduce the risk of malnutrition/dehydration. Tube feeding may not reduce the risk of developing aspiration PNA, as patients continue to aspirate on saliva and current research indicates combined use of a water only protocol for liquids combined with aggressive oral care maybe more effective in lowering rates of aspiration PNA, even in patients who are actively aspirating. In either option, Pt requires skilled speech therapy for training of safe swallow and compensatory strategies, and rehab exercise program targeting the pharyngeal squeeze and hyoid excursion to reduce risk of aspiration/ asp pna and increase safety w intake. Rehabilitation Potential Fair Patient Appropriate for Therapy Yes Recommendations Diet Liquids Order Moderately Thick (IDDSI 3) Diet Order Pureed (IDDSI 4) Medication Recommendation Not Recommended by Mouth Comments limited and delayed pharyngeal clearing Additional Dietary Needs Single Sips,1:1 Assistance Aspiration Precautions Recommended Precautions Upright at 90 Degrees,Small Bites/Sips,Double Swallow, Liquids from Spoon Treatment Plan Therapy Recommendations Inpatient Speech Therapy, Outpatient Speech Therapy Recommended Referrals Other Additional Recommended Referrals Pt is not fully safe with any PO intake. Recc Oral care plus feeding tube. Therapy Strategy Recommendations Sitting Upright (90 deg), Double Swallow,Liquids from Spoon Additional Strategies Recommended Aggressive oral care before all intake, 4-5x/s per day, continue OC if NPO Additional Recommendations/Comments ST provided patient education on findings and risks and benefits of continued PO vs tube feedings as well as importance of good oral care with either option to reduce the risk of aspiration PNA. Pt verbalized understanding and that he needed to yvonne it over and discuss with his son before deciding if he would be willing to accept a feeding tube. ST provided caregiver education on findings and recommendations, reviewed accurate mixing of moderately thick liquids and importance of oral care.
[2022-12-08] VITALS (20 sets, daily range): BP systolic 107–154; BP diastolic 59–78; PULSE 74–98; RESP 11–22; TEMP 36.1–37.7; O2SAT 92–98; BMI 20.5
[2022-12-08] MEDS: INSULIN LISPRO 100 UNIT/ML 3ML VIAL SUBCUT ×3 (08:42→20:57)
[2022-12-08] MEDS: ENOXAPARIN 40 MG/0.4 ML SYRINGE SUBCUT (08:43)
[2022-12-08 08:47] LABS: Add Manual Diff / Slide Review NO; Basophils Absolute Auto 0 /uL (0-100); Basophils Percent Auto 0.7 % (0-2); Eosinophils Absolute Auto 300 /uL (0-450); Hematocrit 28.8 % (41-53); Hemoglobin 9.8 g/dL (13.5-17.5); Lymphocytes Absolute Auto 1500 /uL (1100-4500); Lymphocytes Percent Auto 20.1 % (25-40); Mean Corpuscular HGB Conc 33.9 % (30-36); Mean Corpuscular Hemoglobin 33.9 PG (26-34); Mean Corpuscular Volume 99.9 fL (80-100); Monocytes Absolute Auto 500 /uL (0-900); Monocytes Percent Auto 6.3 % (3-14); Neutrophils Absolute Auto 5000 /uL (1500-7000); Neutrophils Percent Auto 68.9 % (50-75); Platelet Count 197 X10^3/uL (150-400); Red Blood Cell Count 2.88 X10^6/uL (4.5-5.9); Red Cell Distribution Width 14.4 % (11.6-14.8); White Blood Cell Count 7.3 X10^3/uL (4.5-11.0)
[2022-12-08 08:59] LABS: BUN Creatinine Ratio 20.5 (6-22); Blood Urea Nitrogen 31 mg/dL (9-20); Calcium 8.8 mg/dL (8.4-10.2); Carbon Dioxide 26 mmol/L (22-32); Chloride 107 mmol/L (98-107); Estimated Glomerular Filt Rate 47 mL/min (>60); Glucose 163 mg/dL (80-110); HEMOLYSIS < 15 (0-50); Potassium 3.8 mmol/L (3.4-5.1); Sodium 140 mmol/L (137-145)
[2022-12-08 09:00] LABS: Magnesium 1.9 mg/dL (1.6-2.3)
--- NOTE | 2022-12-08 12:22 | ST.IPTN ---
Visit Care Team Role Provider Type Doctor MD Steve Primary Care Provider Non-Staff Address: Phone: Fax: Chuy Andersen MD Other Providers Physician Address: [address] [place] [address], [address] Marisol Galaviz MD Emergency Provider Physician Referring Provider Address: [address] [place] [address], [phone] Terrence Mendieta MD Admit Provider Physician Attending Provider Address: [address] [place] [address], [phone] Fax: NOTCHER Treatment Note NOTCHER Treatment Note Start: 12/07/22 12:26 Freq: Status: Active Protocol: Document 12/08/22 12:01 (Rec: 12/08/22 12:22 [id number]) Speech Pathology Treatment Note Session Time Visit Start Time 10:15 Visit Stop Time 11:00 Total Visit Minutes 45 Visit Information Visit Number 2 Setting Treatment Setting Acute Care Visit Type Note Type Treatment Note General Information Patient History Per H&P- 77-year-old male with history of hypertension, CHF, COPD (not on O2) presents by EMS from home for generalized weakness and productive cough. Patient was seen for same on 12/03/2022. He was diagnosed with pneumonia. There was concern for possible aspiration, they performed a swallow test and he performed well with thickened liquids. He was discharged back home. He lives on the same property as his son and [id number], and they help him daily. This morning the son went to check on his father as per usual and found him nearly comatose with gurgling respirations and called 911. Patient was hypoxic by EMS in the 80s and placed on 2 L nasal cannula. On arrival patient was suctioned and secretions were evacuated from the patient's oral cavity. After being suctioned the patient stated he felt much better. MBS findings: VFSS assessment today revealed severe oropharyngeal dysphagia, with delayed swallow initiation, impaired pharyngeal constriction, limited epiglottic inversion, limited UES opening, and mod/ severe residue/pooling base of tongue, valleculae, pyriform sinuses, pharyngeal wall. Hunter aspiration observed during the swallow with liquids and post swallow with all intake from residue/pooling and poor UES opening. Given limited strength and fatigue observed from minimal trials, combined with minimum cough response, reduced breath support and reduced laryngeal sensitivity possibly d/t COPD, all increasing risk of asp and asp pna, pt is not completely safe with any diet level, however if patient chooses to continue oral intake, safest options would be moderately thickened liquids and puree solids but only following aggressive oral care. ST would recommend tube feeding at least temporarily to increase intake and reduce the risk of malnutrition/dehydration. Tube feeding may not reduce the risk of developing aspiration PNA, as patients continue to aspirate on saliva and current research indicates combined use of a water only protocol for liquids combined with aggressive oral care maybe more effective in lowering rates of aspiration PNA, even in patients who are actively aspirating. In either option, Pt requires skilled speech therapy for training of safe swallow and compensatory strategies, and rehab exercise program targeting the pharyngeal squeeze and hyoid excursion to reduce risk of aspiration/ asp pna and increase safety w intake. Subjective Chief Complaint(s) Swallowing Assessment Assessment of Improvement Pt seen largely upright in bed , pt verbalized he was still undecided re:PEG tube. Pt also stated he had not been receiving regular oral care w a toothbrush. ST reviewed MBS findings with pt and son and possible therapy options, as well as reviewing how parkinsons effects the body and specifically the swallow and how the generalized weakness of movement did resemble a swallow of someone w untreated parkinsons. ST provided risks and benefits of various options of treatment. Pt agreed to trial parkinsons medications (he had been told he needed to go to [place] to see a dr there, however the hospitalist here is able to order them). Pt agreeable to receive a PEG tube in order to reduce the risk of dehydration, malnutrition, and medications not clearing his pharynx in a timely manner. Pt verbalized he had not been taking in any fluids as the thickened water was glop. ST facilitated education w nursing and caregivers re need for aggressive oral care before all intake, but that research demonstrates that if oral cares are completed and patient is limited to water for liquids, thin liquids are relatively low risk, even with active aspiration and would improve hydration and clearing of mucus. Caregivers and pt are in agreement with free water protocol given aggressive oral care. ST informed Dr of agreement to meds and peg tube.
--- NOTE | 2022-12-08 13:00 | PT.IPTN ---
Current Diagnoses Pneumonitis due to inhalation of food and vomit (12/06/22) Surgery Performed Operation Date: 12/08/22 15:45 <No data on this case meets the specified criteria> Physical Therapy Treatment Note M2 PT-IP Current Condition Start: 12/06/22 16:25 Freq: NEEDED Status: Active Protocol: Document 12/06/22 14:25 AB (Rec: 12/06/22 16:36 AB [id number]) Physical Therapy Current Condition Current Condition Evaluation Date 12/06/22 Treatment Diagnosis PNA; difficulty in walking Onset Date 12/06/22 M3 PT-IP Subjective Start: 12/06/22 16:25 Freq: NEEDED Status: Active Protocol: Document 12/08/22 13:19 TS (Rec: 12/08/22 13:43 TS [id number]) Subjective Physical Therapy Visit Type Type Treatment Note Visit Start Time 13:00 Visit Stop Time 13:19 Total Visit Minutes 19 Number of SHIFT NURSE MANAGER Visits 2 Physical Therapy Visit Comments Patient Comments Pt found resting in bed, continues to have slow slurred speech, is agreeable to PT. M4 PT-IP Mobility and Gait Start: 12/06/22 16:25 Freq: NEEDED Status: Active Protocol: Document 12/08/22 13:19 TS (Rec: 12/08/22 13:43 TS [id number]) PT-Bed Mobility Assessment Supine to Sit Supine to Sit Standby Assistance,Head of Bed Elevated,Bedrails Sit to Supine Sit to Supine Standby Assistance,Head of Bed Elevated,Bedrails Scooting Scooting to Edge of Bed Standby Assistance PT-Transfer Assessment Sit to and From Stand Sit to and from Stand Contact Guard Assistance,1 Person Assistance,Use of Upper Extremities Equipment Transfer Assistive Device Gait Belt,Front Wheeled Walker Orthotic/Prosthetic Devices or Brace: No Comments Mobility Comments Supine to sit SBA with HOB elevated 25D, pt uses BUE support to upright trunk. Sit to stand CGA with FWW, pt has some retroleaning initially coming into standing. He ambulated ~50' in room CGA/SBA with FWW, is unsteady on his feet with NBOS. Sit to supine into bed SBA with HOB elevated and BUE support. Pt was left in bed, all needs met, RN notified. Gait Assessment Gait Gait Assistance Required: Standby Assistance,Contact Guard Assist Distance (Feet) 50 Able to Maintain Weight Bearing Status Yes During Gait Assistive Devices Assistive Device Gait Belt,Front Wheeled Walker Orthotic/Prosthetic Devices or Brace: No Gait Deviations General Gait Pattern Decreased Stride Length, Decreased Feet Clearance, Narrow Based Gait Factors Limiting Gait Function Factors Limiting Gait Function Decreased Activity Tolerance, Decreased Strength,Difficulty Following Directions,Pain,Poor Balance,Poor Safety Awareness Comments Gait Comments See mobility comments PT-Balance Assessment Sitting Balance and Reactions Static Sitting Balance Ability Good Dynamic Sitting Balance Ability Good Standing Balance and Reactions Static Standing Balance Ability Fair Dynamic Standing Balance Ability Fair Device Used FWW M5 PT-IP Objective Assessments Start: 12/06/22 16:25 Freq: NEEDED Status: Active Protocol: Document 12/06/22 14:25 AB (Rec: 12/06/22 16:36 AB [id number]) Orientation Orientation/Cognition Level of Alertness Alert Orientation Name,Place,Situation Safety Awareness Decreased Safety Awareness Memory Description Short Term Impaired Gross Range of Motion Lower Extremity ROM Assessment Within Functional Limits Strength Lower Extremity Strength Hip 4-/5 Knee 4-/5 Sensation Assessment Sensation Gross Sensation WNL Muscle Tone Muscle Tone WNL Yes M6 PT-IP Treatment Start: 12/06/22 16:25 Freq: NEEDED Status: Active Protocol: Document 12/08/22 13:19 TS (Rec: 12/08/22 13:43 TS [id number]) Physical Therapy Treatment Education Education Provided Safety M7 PT-IP Assessment and Plan Start: 12/06/22 16:25 Freq: NEEDED Status: Active Protocol: Document 12/08/22 13:19 TS (Rec: 12/08/22 13:43 TS [id number]) PT Summary Assessment and Plan Potential Rehabilitation Potential Fair Summary Impairments Pain,ROM,Strength,Balance, Coordination,Sensation,Tone, Cognition,Bed Mobility, Transfers,Gait,Activity Tolerance Progress Towards Goals Progressing Toward Goals Assessment Summary [place] continues to make progress with his mobility. He is SBA for all bed mobility this session. He required CGA for sit to stand due to retroleaning coming into standing. He progressed his gait to ~50' SBA/CGA, is unsteady on his feet but has no buckling or LOB. Continues to have slow slurred speech. PT continues to recommend acute rehab at this time. Goals Bed Mobility Goal Independent Transfer Goal Independent,Front Wheeled Walker Gait Goal Independent,Front Wheel Walker Gait Distance 200 Other Goals improve transfers and ambulation using LRAD/without AD 300 ft mod I Days to Meet Goals 10 Frequency of Treatment Frequency Of Treatment Once a Day Treatment Plan Physical Therapy Treatment Plan Bed Mobility Training,Transfer Training,Gait Training, Therapeutic Exercise,Balance Retraining,Discharge Planning, Hot or Cold Pack,Neuromuscular Re-ed,Coordination Retraining Precautions Other Precautions falls Recommendations To Nursing Amount of Assist Needed 2 Person Assist Discharge Recommendations PT Discharge Recommendations Acute Rehab,SNF vs Acute Rehab Transportation Needs at Discharge Private Vehicle,Wheelchair/ Cabulance
[2022-12-08] MEDS: cefTRIAXone 1,000 MG in SODIUM CHLORIDE 0.9% 100 ML 200 MG IV (13:34)
--- NOTE | 2022-12-08 14:08 | OT.IP.TRT ---
Current Diagnoses Pneumonitis due to inhalation of food and vomit (12/06/22) Surgery Performed Operation Date: 12/08/22 15:45 <No data on this case meets the specified criteria> Occupational Therapy Treatment Note M2 OT-IP Current Condition Start: 12/07/22 13:32 Freq: Status: Active Protocol: Document 12/07/22 13:32 [facility] (Rec: 12/07/22 14:05 [facility] [id number]) Occupational Therapy Current Condition Current Condition Evaluation Date 12/07/22 Treatment Diagnosis PNA, weakness Diagnosis Onset Date 12/06/22 M3 OT- IP Subjective and Pain Start: 12/07/22 13:32 Freq: Status: Active Protocol: Document 12/08/22 14:00 [facility] (Rec: 12/08/22 14:27 [facility] [id number]) OT- Subjective Occupational Therapy Visit Type Type Treatment Note Visit Start Time 14:00 Visit Stop Time 14:08 Total Visit Minutes 8 Occupational Therapy Visit Comments Patient Comments Pt states tired from just walking earlier and wanting to rest. Patient/Caregiver Goals TO get better. OT Pain Assessment Pain When Pain Assessed At Rest Pain Present Pain Present Denied Pain M4 OT- IP ADL's Start: 12/07/22 13:32 Freq: Status: Active Protocol: Document 12/08/22 14:00 [facility] (Rec: 12/08/22 14:27 [facility] [id number]) OT ADL-Oral Care General Eval Oral Care Ability Standby Assistance Areas of Assistance Retrieving/Set-Up of Items Comments Oral Care Comments Able to have pt use swabs with mouth wash ringed out to swab his mouth. Pt able to wash his face after use of wash cloth. M5 OT- IP IADL's Start: 12/07/22 13:32 Freq: Status: Active Protocol: Document 12/07/22 13:32 [facility] (Rec: 12/07/22 14:05 [facility] [id number]) OT-Instrumental Activities of Daily Living Deficits IADL Deficits Identified Deficits Home Safety Awareness Awareness of Need for Assistance at Home Good Awareness Ability to Problem Solve Emergency Able to Problem Solve Situations Medication Management Medication Management Comments Pt states does his own. Money Management Money Management Comments Pt states does his own. Meal Preparation Meal Preparation Comments Pt states does his own. Oncologist Oncologist Comments Pt just gets assist for driving and grocery shopping. Driving Driving Caregiver Provides Assist M6 OT- IP Functional Cognition Start: 12/07/22 13:32 Freq: Status: Active Protocol: Document 12/08/22 14:00 [facility] (Rec: 12/08/22 14:27 [facility] [id number]) Cognitive Factors Limiting Selfcare Function Cognitive Comments Cognitive Assessment Comments Pt aware that his balance is not as good as he would like and that he plans to just use the FWW for all mobility needs from now on. Pt not sure what his plans are for discharge pending the PEG tub placement. Document 12/08/22 14:00 [facility] (Rec: 12/08/22 14:27 [facility] [id number]) OT Summary Assessment and Plan Potential Rehabilitation Potential Excellent Analytic Complexity at Evaluation Moderate Summary OT Impairments Range of Motion,Strength, Balance,Functional Mobility, Self-Feeding,Grooming,Dressing ,Toileting,Bathing,Toilet Transfers,Shower Transfers Progress Towards Goals Progressing Toward Goals,Slow Progress due to Medical Issues Assessment Summary Pt able to do his oral care needs and able to talk about need for pt to use the FWW now due to his decreased balance. Pt looking to get a PEG tube placed and pending progress hopefully go to acute rehab. Otherwise pt may benefit from SNF, or home with assist and home health pending progress. Goals Self-Feeding Goal Independent Grooming Goal Independent Dressing Goal Independent Toileting Goal Independent Bathing Goal Independent Toilet Transfer Goal Independent Shower Transfer Goal Independent Days to Meet Goals 15 Frequency of Treatment Frequency Of Treatment Once a Day Treatment Plan OT Treatment Plan ADL Training,Functional Mobility,Patient/Family Education,Discharge Planning Discharge Recommendations OT Discharge Recommendations Acute Rehab,Home vs SNF,SNF vs Acute Rehab Transportation Needs at Discharge Private Vehicle
--- NOTE | 2022-12-08 14:56 | CM.DPC ---
DCP Cont: Per MD, ST continues to recommend PEG tube placement due to his significant swallow/aspirations. MD discussed with pt and he is in agreement for PEG tube placement and confirmed with pt and son that Parkinson's dx is not officially in pt's medical dx but pt's symptoms appear very Parkinsonian's and tentative plan is for PEG placement and then initiate Parkinson's medication to determine if pt will begin to improve. Plan is PEG placement with Surgeon tomorrow Sat 12/09. SW followed up on facility attempts from yesterday: [facility]- pt showing as Medicare secondary to [employer] insurance and therefore cannot accept [facility]- attempted to verify [employer] through pt's insurance and [employer] cannot verify pt is active [facility]- reviewing [facility]- full until at least 12/12, did not send referral yet [facility]- faxed referral, confirmed today they received and that they will review to determine if pt appropriate and to determine if they can accept pt's [facility] or [employer]. Called multiple times and was told the person who reviewed will call back, no return call by end of shift. Plan: SW to follow closely for PEG tube placement this weekend Sat 12/09 and then initiation of Parkinson's meds to determine if pt has improvements with meds and nutrition towards determining if pt needs rehab placement vs home. Pt's insurance is a barrier currently for facility placement. ISABEL Spencer
--- NOTE | 2022-12-08 15:08 | PM.CN ---
History of Present Illness Consult details Date Patient Seen: 12/08/22 Chief complaint: SOB Narrative: 77-year-old man with Parkinson's disease admitted to hospital with aspiration pneumonia. Barium swallow demonstrates aspiration consulted for peg tube placement. No prior intra-abdominal surgery. Meds Home Medications and Allergies Home Medications Medication Instructions Recorded Confirmed Type amlodipine 5 mg tablet 5 mg PO DAILY 11/11/22 12/06/22 History metoprolol succinate 25 mg 25 mg PO DAILY 11/11/22 12/06/22 History tablet,extended release 24 hr amoxicillin 875 mg-potassium 1 tab PO BID #20 tabs 12/03/22 12/06/22 Rx clavulanate 125 mg tablet albuterol sulfate 90 mcg/actuation 2 puff inhalation Q4-6H PRN SOB 12/06/22 12/06/22 History aerosol inhaler aspirin 81 mg tablet 81 mg PO DAILY 12/06/22 12/06/22 History chlorthalidone 25 mg tablet 25 mg PO DAILY 12/06/22 12/06/22 History glipizide 10 mg tablet 10 mg PO BID 12/06/22 12/06/22 History lisinopril 40 mg tablet 40 mg PO DAILY 12/06/22 12/06/22 History metformin 1,000 mg tablet 1,000 mg PO BID 12/06/22 12/06/22 History rosuvastatin 5 mg tablet (Crestor) 5 mg PO DAILY 12/06/22 12/06/22 History Allergies Allergy/AdvReac Type Severity Reaction Status Date / Time No Known Drug Allergies Allergy Verified 12/08/22 15:02 Exam Vital Signs (past 8 hours): - 12/08/22 08:21 12/08/22 08:30 12/08/22 09:19 Temperature 97.8 F Pulse Rate 86 Respiratory Rate 14 Blood Pressure 116/61 Pulse Oximetry 96 Oxygen Delivery Method Room Air Room Air 12/08/22 13:00 Temperature Pulse Rate Respiratory Rate Blood Pressure Pulse Oximetry 96 Oxygen Delivery Method Room Air Oxygen Delivery Method Room Air Oxygen Flow Rate 0 Narrative Exam Narrative: General elderly man alert oriented Chest nonlabored respiration Extremities warm well perfused Objective Labs 12/08/22 08:36 12/08/22 08:36 Labs: Laboratory Results - last 24 hr 12/08/22 08:36 WBC 7.3 RBC 2.88 L Hgb 9.8 L Hct 28.8 L MCV 99.9 MCH 33.9 MCHC 33.9 RDW 14.4 Plt Count 197 Neut % (Auto) 68.9 Lymph % (Auto) 20.1 L [place] % (Auto) 6.3 Eos % (Auto) 4.0 Baso % (Auto) 0.7 Neut # (Auto) 5000 Lymph # (Auto) 1500 [place] # (Auto) 500 Eos # (Auto) 300 Baso # (Auto) 0 Sodium 140 Potassium 3.8 Chloride 107 Carbon Dioxide 26 BUN 31 H Creatinine 1.51 H Estimated GFR 47 L BUN/Creatinine Ratio 20.5 Glucose 163 H Calcium 8.8 Magnesium 1.9 PFSH Social History household members: none Tobacco & Substance Use Smoking Status: Current every day smoker alcohol intake: never Assessment & Plan Assessment and plan (1) Difficulty swallowing: Qualifiers: Dysphagia type: unspecified Qualified Code(s): R13.10 - Dysphagia, unspecified Status: Acute Assessment & Plan narrative: 77-year-old male with Parkinson's disease and chronic aspiration who needs a percutaneous gastrostomy tube placement for nutritional support. Overview of the procedure discussed with patient and his son at the bedside. Operative risks including hemorrhage, infection, damage to surrounding structures, gastric leak discussed. Questions have been answered and consent has been obtained.
--- NOTE | 2022-12-08 15:28 | P.PN_ITS ---
Subjective Subjective Interval history: Patient agrees to PEG tube. Gen surg consulted and will place today. Patient and son were told he likely has Parkinson's and that is the reason for his poor swallow. They are wanting to try sinemet to see if this can improve his dysphagia. Exam Vital Signs (past 8 hours): - 12/08/22 08:21 12/08/22 08:30 12/08/22 09:19 Temperature 97.8 F Pulse Rate 86 Respiratory Rate 14 Blood Pressure 116/61 Pulse Oximetry 96 Oxygen Delivery Method Room Air Room Air 12/08/22 13:00 12/08/22 14:56 Temperature 97.8 F Pulse Rate 74 Respiratory Rate 16 Blood Pressure 121/75 Pulse Oximetry 96 93 Oxygen Delivery Method Room Air Room Air Oxygen Delivery Method Room Air Oxygen Flow Rate 0 Narrative Exam Narrative: GEN: frail, weak appearing CV: regular rate and rhythm PULM: coarse breath sounds in left lung ABD: soft, nontender, nondistended EXT: warm and well perfused with no edema NEURO: awake, alert, oriented, no focal deficits Objective Labs 12/08/22 08:36 12/08/22 08:36 Labs: Laboratory Results - last 24 hr 12/08/22 08:36 WBC 7.3 RBC 2.88 L Hgb 9.8 L Hct 28.8 L MCV 99.9 MCH 33.9 MCHC 33.9 RDW 14.4 Plt Count 197 Neut % (Auto) 68.9 Lymph % (Auto) 20.1 L Sam[place] % (Auto) 6.3 Eos % (Auto) 4.0 Baso % (Auto) 0.7 Neut # (Auto) 5000 Lymph # (Auto) 1500 [place]pson # (Auto) 500 Eos # (Auto) 300 Baso # (Auto) 0 Sodium 140 Potassium 3.8 Chloride 107 Carbon Dioxide 26 BUN 31 H Creatinine 1.51 H Estimated GFR 47 L BUN/Creatinine Ratio 20.5 Glucose 163 H Calcium 8.8 Magnesium 1.9 PFSH Social History household members: none Smoking Status: Current every day smoker alcohol intake: never Assessment & Plan Assessment & Plan narrative: # Acute hypoxemic respiratory failure secondary to pneumonia from likely aspiration -chest xray with left opacity consistent with pneumonia -requiring oxygen for sats initially in the 80s -start on antibiotics with azithromycin and ceftriaxone -speech eval ordered and noted dysphagia and recommended modified diet -modified barium swallow ordered, pending read -now off O2 and on room air as of 12/07 # dysphagia due to probable underlying parkinson's disease -patient agrees to PEG as rec by CERTIFIED MEDICAL TECHNICIAN with TF -gen surg to place PEG 12/08 -NPO -will order sinemet to start evening of 12/08 and titrate up as tolerated to see if this helps his swallow # Hypertension -hold oral meds for now # Type 2 diabetes -hold metformin -check glucose achs -insulin sliding scale ordered CODE: DNR/DNI Proxy: abundio Tabor Dispo: Pending PEG placement and starting sinemet.
--- NOTE | 2022-12-08 16:28 | PM.OP.1 ---
Operative Date/Time/Diagnoses Date of procedure: 12/08/22 Time of procedure: 16:38 Pre-op diagnosis: Dysphagia Post-op diagnosis: same Procedure & Clinicians Procedure: Percutaneous endoscopic gastrostomy tube placement Same procedure as scheduled: Yes Indications: Parkinson's with dysphagia and chronic aspiration Surgeon: Chuy Andersen Click Yes if Unassisted: Yes Anesthesia Type: General Operative Notes Findings: Tube at 3 cm to the skin Specimen(s): none sent Estimated Blood Loss (mL): 5 Procedure in detail: Patient was brought to the operating room placed supine on the table. General anesthesia was induced he was intubated with an endotracheal tube. Time-out performed. Endoscope was inserted into the mouth and the esophagus was intubated. It was abnormally difficult to intubate the esophagus there appears to be some anatomical abnormality here perhaps this is contributing to his dysphagia. Stomach was examined was normal in its appearance. Within the body of the stomach the needle was advanced through the abdominal wall after was prepped and draped into the body of the stomach. The guidewire was then placed through the needle and then snare was used to grasp the guidewire. The PEG tube was then attached to the guidewire and then brought back into the stomach. It was placed at 3 cm to the skin where it was snug but rotated freely. He tolerated the procedure well was extubated and transferred to recovery in stable condition. Complications: none Post-operative Condition: stable Disposition: Acute Care
[2022-12-08] MEDS: ACETAMINOPHEN SUSP 650 MG/20.3 ML UDC TUBE (17:48)
[2022-12-08] MEDS: AZITHROMYCIN 500 MG in DEXTROSE 5% IN WATER 250 ML 250 MG IV (17:49)
--- NOTE | 2022-12-08 17:58 | PC.NURSE ---
Pt returned from PACU at 1707, A&Ox4, VSS on 2L NC, c/o mild pain to abdomen. Very loose cough with small amount of foamy pink secretions. Peg tube to L upper abdomen with gauze and tape, small amount of bloody drainage on gauze. Patient resting in bed, bed in low position, call light within reach, SCDs on.
[2022-12-08] MEDS: CARBIDOPA-LEVODOPA 25/100 TABLET 1 EACH TUBE (20:55)
[2022-12-09] VITALS (12 sets, daily range): BP systolic 104–134; BP diastolic 51–68; PULSE 82–95; RESP 16–18; TEMP 36.4–37.7; O2SAT 94–98
[2022-12-09 06:27] LABS: Add Manual Diff / Slide Review NO; Basophils Absolute Auto 0 /uL (0-100); Basophils Percent Auto 0.4 % (0-2); Eosinophils Absolute Auto 0 /uL (0-450); Eosinophils Percent Auto 0.3 % (2-4); Hematocrit 27.4 % (41-53); Hemoglobin 9.4 g/dL (13.5-17.5); Lymphocytes Absolute Auto 1400 /uL (1100-4500); Lymphocytes Percent Auto 17.5 % (25-40); Mean Corpuscular HGB Conc 34.4 % (30-36); Mean Corpuscular Hemoglobin 34.4 PG (26-34); Mean Corpuscular Volume 100.1 fL (80-100); Monocytes Absolute Auto 300 /uL (0-900); Monocytes Percent Auto 3.7 % (3-14); Neutrophils Absolute Auto 6200 /uL (1500-7000); Neutrophils Percent Auto 78.1 % (50-75); Platelet Count 190 X10^3/uL (150-400); Red Blood Cell Count 2.74 X10^6/uL (4.5-5.9); Red Cell Distribution Width 14.1 % (11.6-14.8)
[2022-12-09 06:41] LABS: BUN Creatinine Ratio 19.6 (6-22); Blood Urea Nitrogen 28 mg/dL (9-20); Calcium 8.5 mg/dL (8.4-10.2); Carbon Dioxide 28 mmol/L (22-32); Chloride 105 mmol/L (98-107); Estimated Glomerular Filt Rate 50 mL/min (>60); Glucose 185 mg/dL (80-110); HEMOLYSIS < 15 (0-50); Potassium 4.3 mmol/L (3.4-5.1); Sodium 138 mmol/L (137-145)
[2022-12-09 06:44] LABS: Magnesium 1.8 mg/dL (1.6-2.3); Phosphorous 3.7 mg/dL (2.3-3.7)
--- NOTE | 2022-12-09 08:24 | PM.PN.1 ---
Subjective Subjective Interval history: Patient has agreed to PEG tube. Gen surg consulted and has placed. Patient and son were told he likely has Parkinson's and that is the reason for his poor swallow. They are wanting to try sinemet to see if this can improve his dysphagia. Patient able to speeak today and is pleased with that. Has no pain concerns. Still very weak and movement is difficult. Exam Vital Signs (past 8 hours): - 12/09/22 01:11 12/09/22 02:00 12/09/22 04:29 Temperature 97.9 F 98.3 F Pulse Rate 91 H 82 Respiratory Rate 18 18 Blood Pressure 104/51 L 112/52 L Pulse Oximetry 97 97 98 Oxygen Delivery Method Room Air Oxygen Flow Rate 0 2 12/09/22 06:00 Temperature Pulse Rate Respiratory Rate Blood Pressure Pulse Oximetry 98 Oxygen Delivery Method Nasal Cannula Oxygen Flow Rate 2 Fraction of Inspired Oxygen 28 SaO2/FiO2 Ratio 350 Oxygen Delivery Method Nasal Cannula Oxygen Flow Rate 2 Narrative Exam Narrative: GEN: frail, weak appearing, but pleased he can speak CV: regular rate and rhythm PULM: coarse breath sounds in left lung ABD: soft, nontender, nondistended EXT: warm and well perfused with no edema NEURO: awake, alert, oriented, no focal deficits Objective Labs 12/09/22 05:48 12/09/22 05:48 Labs: Laboratory Results - last 24 hr 12/08/22 12/09/22 08:36 05:48 WBC 7.3 8.0 RBC 2.88 L 2.74 L Hgb 9.8 L 9.4 L Hct 28.8 L 27.4 L MCV 99.9 100.1 H MCH 33.9 34.4 H MCHC 33.9 34.4 RDW 14.4 14.1 Plt Count 197 190 Neut % (Auto) 68.9 78.1 H Lymph % (Auto) 20.1 L 17.5 L [place] % (Auto) 6.3 3.7 Eos % (Auto) 4.0 0.3 L Baso % (Auto) 0.7 0.4 Neut # (Auto) 5000 6200 Lymph # (Auto) 1500 1400 [place] # (Auto) 500 300 Eos # (Auto) 300 0 Baso # (Auto) 0 0 Sodium 140 138 Potassium 3.8 4.3 Chloride 107 105 Carbon Dioxide 26 28 BUN 31 H 28 H Creatinine 1.51 H 1.43 H Estimated GFR 47 L 50 L BUN/Creatinine Ratio 20.5 19.6 Glucose 163 H 185 H Calcium 8.8 8.5 Phosphorus 3.7 Magnesium 1.9 1.8 PFSH Social History household members: none Smoking Status: Current every day smoker alcohol intake: never Assessment & Plan Assessment & Plan narrative: # Acute hypoxemic respiratory failure secondary to pneumonia from likely aspiration -chest xray with left opacity consistent with pneumonia -requiring oxygen for sats initially in the 80s - on antibiotics with azithromycin and ceftriaxone -speech eval ordered and noted dysphagia and recommended modified diet -modified barium swallow ordered, pending read -needing O2 supplement intermittently # dysphagia due to probable underlying parkinson's disease -patient agrees to PEG as rec by PRIVACY COMPLIANCE MANAGER with TF -gen surg to place PEG 12/08 -NPO - sinemet started evening of 12/08 and titrate up as tolerated to see if this helps his swallow, so far it has allowed the patient to speak # Hypertension -hold oral meds for now, currently stable without medication # Type 2 diabetes -hold metformin -check glucose, now q6h -insulin sliding scale ordered CODE: DNR/DNI Proxy: Chilango Adams, son DVT prophylaxis: enoxaparin 40 mg daily subcut
[2022-12-09] MEDS: ENOXAPARIN 40 MG/0.4 ML SYRINGE SUBCUT (08:55)
[2022-12-09] MEDS: CARBIDOPA-LEVODOPA 25/100 TABLET 1 EACH TUBE ×3 (08:56→21:15)
[2022-12-09] MEDS: INSULIN LISPRO 100 UNIT/ML 3ML VIAL SUBCUT ×2 (08:56→14:36)
--- NOTE | 2022-12-09 12:01 | PT.IPTN ---
Current Diagnoses Pneumonitis due to inhalation of food and vomit (12/06/22) Dysphagia, unspecified (12/06/22) Surgery Performed Operation Date: 12/08/22 15:45 Actual Procedures p Peg Tube Insertion(Not Applicable) - Chuy Andersen MD Physical Therapy Treatment Note M2 PT-IP Current Condition Start: 12/06/22 16:25 Freq: NEEDED Status: Active Protocol: Document 12/06/22 14:25 AB (Rec: 12/06/22 16:36 AB [id number]) Physical Therapy Current Condition Current Condition Evaluation Date 12/06/22 Treatment Diagnosis PNA; difficulty in walking Onset Date 12/06/22 M3 PT-IP Subjective Start: 12/06/22 16:25 Freq: NEEDED Status: Active Protocol: Document 12/09/22 12:01 AB (Rec: 12/09/22 14:03 AB [id number]) Subjective Physical Therapy Visit Type Type Treatment Note Visit Start Time 12:01 Visit Stop Time 12:46 Total Visit Minutes 27 Notes pt seen for split visits: 1201 to 1215 and 1233 to 1246 Number of RECOVERY ROOM RN Visits 0 Physical Therapy Visit Comments Patient Comments pt is agreeable to do PT M4 PT-IP Mobility and Gait Start: 12/06/22 16:25 Freq: NEEDED Status: Active Protocol: Document 12/09/22 12:01 AB (Rec: 12/09/22 14:03 AB [id number]) PT-Bed Mobility Assessment Supine to Sit Supine to Sit Standby Assistance Sit to Supine Sit to Supine Minimal Assistance PT-Transfer Assessment Sit to and From Stand Sit to and from Stand Contact Guard Assistance, Minimal Assistance,1 Person Assistance,Use of Upper Extremities Equipment Transfer Assistive Device Gait Belt,Front Wheeled Walker Orthotic/Prosthetic Devices or Brace: No Transfers Transfer Destination Toilet Transfer Technique ambulated Transfer Ability Level of Assist Contact Guard Assistance,1 Person Assistance,Use of Upper Extremities Comments Mobility Comments pt supine in bed and agreeable to do PT. completed supine to sit SBA with HOB elevated. pt requesting to use the toilet. completed sit to stand CGA to min A and ambulated towards the toilet using FWW CGA. call light positioned next to pt and instructed to ask for assistance when ready. informed NAC. checked back on pt after using the toilet. pt sitting on the chair and agreed to ambulated . completed sit to stand from the chair min A and ambulated in room using FWW CGA ~ 40 ft. pt requested to go back to bed. completed sit to supine min A and min A for positioning in bed. call light and table placed within reach. Gait Assessment Gait Gait Assistance Required: Contact Guard Assist Distance (Feet) 40 Able to Maintain Weight Bearing Status Yes During Gait Assistive Devices Assistive Device Gait Belt,Front Wheeled Walker Orthotic/Prosthetic Devices or Brace: No Gait Deviations General Gait Pattern Decreased Stride Length, Decreased Feet Clearance,Step- to Gait Factors Limiting Gait Function Factors Limiting Gait Function Decreased Activity Tolerance, Decreased Strength,Difficulty Following Directions,Limited Range of Motion,Poor Balance, Poor Safety Awareness M5 PT-IP Objective Assessments Start: 12/06/22 16:25 Freq: NEEDED Status: Active Protocol: Document 12/06/22 14:25 AB (Rec: 12/06/22 16:36 AB [id number]) Orientation Orientation/Cognition Level of Alertness Alert Orientation Name,Place,Situation Safety Awareness Decreased Safety Awareness Memory Description Short Term Impaired Gross Range of Motion Lower Extremity ROM Assessment Within Functional Limits Strength Lower Extremity Strength Hip 4-/5 Knee 4-/5 Sensation Assessment Sensation Gross Sensation WNL Muscle Tone Muscle Tone WNL Yes M6 PT-IP Treatment Start: 12/06/22 16:25 Freq: NEEDED Status: Active Protocol: Document 12/09/22 12:01 AB (Rec: 12/09/22 14:03 AB [id number]) Physical Therapy Treatment Education Education Provided Safety M7 PT-IP Assessment and Plan Start: 12/06/22 16:25 Freq: NEEDED Status: Active Protocol: Document 12/09/22 12:01 AB (Rec: 12/09/22 14:03 AB [id number]) PT Summary Assessment and Plan Potential Rehabilitation Potential Fair Summary Impairments Pain,ROM,Strength,Balance, Coordination,Sensation,Tone, Cognition,Bed Mobility, Transfers,Gait,Activity Tolerance Progress Towards Goals Slow Progress due to Medical Issues,Slow Progress due to Activity Tolerance Assessment Summary pt underwent PEG tube placement yesterday but not needing PT re-eval today as pt 's mobility status has no significant changes and will continue to work on current goals. pt able to complete sit to stand min A and ambulated using FWW CGA but presents with decrease activity tolerance affecting mobility and safety. d/c plan depending on progress but at this time, pt may require SNF rehab. will continue to assess progress. Goals Bed Mobility Goal Independent Transfer Goal Independent,Front Wheeled Walker Gait Goal Independent,Front Wheel Walker Gait Distance 200 Other Goals improve transfers and ambulation using LRAD/without AD 300 ft mod I Days to Meet Goals 10 Frequency of Treatment Frequency Of Treatment Once a Day Treatment Plan Physical Therapy Treatment Plan Bed Mobility Training,Transfer Training,Gait Training, Therapeutic Exercise,Balance Retraining,Discharge Planning, Hot or Cold Pack,Neuromuscular Re-ed,Coordination Retraining Precautions Other Precautions falls Recommendations To Nursing Amount of Assist Needed 1 Person Assist Discharge Recommendations PT Discharge Recommendations SNF Rehab Transportation Needs at Discharge Private Vehicle,Wheelchair/ Cabulance
--- NOTE | 2022-12-09 12:02 | ST.IPTN ---
Visit Care Team Role Provider Type Doctor MD Steve Primary Care Provider Non-Staff Address: Phone: Fax: Chuy Andersen MD Other Providers Physician Address: [address] [place] [address], [id number] Marisol Galaviz MD Emergency Provider Physician Referring Provider Address: [address] [place] [address], [id number] Terrence Mendieta MD Admit Provider Physician Attending Provider Address: [address] [place] [address], [id number] Fax: PRESS MAINTAINER Treatment Note PRESS MAINTAINER Treatment Note Start: 12/07/22 12:26 Freq: Status: Active Protocol: Document 12/09/22 11:54 MG (Rec: 12/09/22 12:02 MG [id number]) Speech Pathology Treatment Note Session Time Visit Start Time 10:30 Visit Stop Time 10:45 Total Visit Minutes 15 Visit Information Visit Number 3 Setting Treatment Setting Acute Care Visit Type Note Type Treatment Note General Information Patient History Per H&P- 77-year-old male with history of hypertension, CHF, COPD (not on O2) presents by EMS from home for generalized weakness and productive cough. Patient was seen for same on 12/03/2022. He was diagnosed with pneumonia. There was concern for possible aspiration, they performed a swallow test and he performed well with thickened liquids. He was discharged back home. He lives on the same property as his son and [id number], and they help him daily. This morning the son went to check on his father as per usual and found him nearly comatose with gurgling respirations and called 911. Patient was hypoxic by EMS in the 80s and placed on 2 L nasal cannula. On arrival patient was suctioned and secretions were evacuated from the patient's oral cavity. After being suctioned the patient stated he felt much better. MBS findings: VFSS assessment today revealed severe oropharyngeal dysphagia, with delayed swallow initiation, impaired pharyngeal constriction, limited epiglottic inversion, limited UES opening, and mod/ severe residue/pooling base of tongue, valleculae, pyriform sinuses, pharyngeal wall. Hunter aspiration observed during the swallow with liquids and post swallow with all intake from residue/pooling and poor UES opening. Given limited strength and fatigue observed from minimal trials, combined with minimum cough response, reduced breath support and reduced laryngeal sensitivity possibly d/t COPD, all increasing risk of asp and asp pna, pt is not completely safe with any diet level, however if patient chooses to continue oral intake, safest options would be moderately thickened liquids and puree solids but only following aggressive oral care. ST would recommend tube feeding at least temporarily to increase intake and reduce the risk of malnutrition/dehydration. Tube feeding may not reduce the risk of developing aspiration PNA, as patients continue to aspirate on saliva and current research indicates combined use of a water only protocol for liquids combined with aggressive oral care maybe more effective in lowering rates of aspiration PNA, even in patients who are actively aspirating. In either option, Pt requires skilled speech therapy for training of safe swallow and compensatory strategies, and rehab exercise program targeting the pharyngeal squeeze and hyoid excursion to reduce risk of aspiration/ asp pna and increase safety w intake. Subjective Observations/Patient Presentation Pt found resting in bed. Agreeable to ST entering the room. No family was present at that time. Pt had PEG tube placement last night (12/08) and had a suction in hand to help manage saliva. Of note, Parkinsons medication was initiated today. Chief Complaint(s) Swallowing Patient Knowledge/Awareness of PRESS MAINTAINER Role Good in Treatment Parent/Caretake Knowledge/Awareness of Good PRESS MAINTAINER Role in Treatment Patient/Caregiver Compliance with Home Good Exercise Program Assessment Assessment of Improvement This PRESS MAINTAINER answered any remaining questions the pt had . PRESS MAINTAINER went over exercises with the pt in order to help build pharyngeal muscles. Pt practiced exercise routine with this PRESS MAINTAINER. No further questions/concerns upon PRESS MAINTAINER exiting the room. Reviewed with Patient Goals,Home Exercise Program Patient/Caregiver Understanding Good Plan Therapeutic Contents Home Exercise Program,Oral Motor Training,Swallowing/ Feeding Provided Patient/Caregiver Instruction Home Exercise Program,Plan of Care,Questions/Concerns Therapy Recommendations Continue with Current Program
--- NOTE | 2022-12-09 12:34 | PC.NURSE ---
Family into visit. Pt up to chair with PT 1 person assist. Speech Therapy in to assess.
[2022-12-09] MEDS: cefTRIAXone 1,000 MG in SODIUM CHLORIDE 0.9% 100 ML 200 MG IV (13:29)
[2022-12-10] VITALS (8 sets, daily range): BP systolic 112–132; BP diastolic 67–82; PULSE 69–102; RESP 16–21; TEMP 36.2–36.6; O2SAT 95–98
[2022-12-10 05:56] LABS: Add Manual Diff / Slide Review NO; Basophils Absolute Auto 100 /uL (0-100); Basophils Percent Auto 0.7 % (0-2); Eosinophils Absolute Auto 200 /uL (0-450); Eosinophils Percent Auto 3.2 % (2-4); Hematocrit 29.6 % (41-53); Hemoglobin 10.1 g/dL (13.5-17.5); Lymphocytes Absolute Auto 1600 /uL (1100-4500); Lymphocytes Percent Auto 20.8 % (25-40); Mean Corpuscular Hemoglobin 34.1 PG (26-34); Mean Corpuscular Volume 100.3 fL (80-100); Monocytes Absolute Auto 400 /uL (0-900); Monocytes Percent Auto 5.7 % (3-14); Neutrophils Absolute Auto 5400 /uL (1500-7000); Neutrophils Percent Auto 69.6 % (50-75); Platelet Count 199 X10^3/uL (150-400); Red Blood Cell Count 2.95 X10^6/uL (4.5-5.9); Red Cell Distribution Width 14.6 % (11.6-14.8); White Blood Cell Count 7.7 X10^3/uL (4.5-11.0)
[2022-12-10 06:11] LABS: BUN Creatinine Ratio 20.9 (6-22); Blood Urea Nitrogen 29 mg/dL (9-20); Calcium 9.3 mg/dL (8.4-10.2); Carbon Dioxide 28 mmol/L (22-32); Chloride 104 mmol/L (98-107); Estimated Glomerular Filt Rate 52 mL/min (>60); Glucose 181 mg/dL (80-110); HEMOLYSIS < 15 (0-50); Sodium 141 mmol/L (137-145)
[2022-12-10 06:12] LABS: Phosphorous 3.3 mg/dL (2.3-3.7)
[2022-12-10] MEDS: ENOXAPARIN 40 MG/0.4 ML SYRINGE SUBCUT (08:50)
[2022-12-10] MEDS: INSULIN LISPRO 100 UNIT/ML 3ML VIAL SUBCUT ×3 (08:51→20:32)
[2022-12-10] MEDS: MULTIVITAMIN 1 TABLET 1 TAB PO (08:51)
[2022-12-10] MEDS: THIAMINE 100 MG TABLET PO (08:52)
[2022-12-10] MEDS: CARBIDOPA-LEVODOPA 25/100 TABLET 1 EACH TUBE (08:52)
--- NOTE | 2022-12-10 09:35 | PM.PN.1 ---
Subjective Subjective Interval history: Patient has PEG tube and receiving feed of 25mL/hour until further evaluatio by dietitian. Getting some intestinal gas which is discomforting. Pleased with benefit of sinemet and would like an increase in dose. Patient able to speak quite freely and animated today and is pleased with that. Still general weakness and movement is difficult. Exam Vital Signs (past 8 hours): - 12/10/22 04:25 12/10/22 05:00 12/10/22 08:00 Temperature 97.5 F L 97.4 F L Pulse Rate 69 94 H Respiratory Rate 17 16 Blood Pressure 132/73 130/82 Pulse Oximetry 95 95 95 Oxygen Delivery Method Room Air Oxygen Flow Rate 0 0 Fraction of Inspired Oxygen 28 SaO2/FiO2 Ratio 350 Oxygen Delivery Method Room Air Oxygen Flow Rate 0 Narrative Exam Narrative: GEN: frail, weak appearing, but significantly improving, in no acute medical distress CV: regular rate and rhythm PULM:minimal coarse breath sounds in left lung ABD: soft, nontender, nondistended, but patient point to area of discomfort which moves, consistent with intestinal gas EXT: warm and well perfused with no edema NEURO: awake, alert, oriented, no focal deficits Objective Labs 12/10/22 05:27 12/10/22 05:27 Labs: Laboratory Results - last 24 hr 12/10/22 05:27 WBC 7.7 RBC 2.95 L Hgb 10.1 L Hct 29.6 L MCV 100.3 H MCH 34.1 H MCHC 34.0 RDW 14.6 Plt Count 199 Neut % (Auto) 69.6 Lymph % (Auto) 20.8 L [place] % (Auto) 5.7 Eos % (Auto) 3.2 Baso % (Auto) 0.7 Neut # (Auto) 5400 Lymph # (Auto) 1600 [place] # (Auto) 400 Eos # (Auto) 200 Baso # (Auto) 100 Sodium 141 Potassium 4.0 Chloride 104 Carbon Dioxide 28 BUN 29 H Creatinine 1.39 H Estimated GFR 52 L BUN/Creatinine Ratio 20.9 Glucose 181 H Calcium 9.3 Phosphorus 3.3 Magnesium 2.0 PFSH Social History household members: none Smoking Status: Current every day smoker alcohol intake: never Assessment & Plan Assessment & Plan narrative: # Acute hypoxemic respiratory failure secondary to pneumonia from likely aspiration -chest xray with left opacity consistent with pneumonia -requiring oxygen for sats initially in the 80s - on antibiotics with azithromycin and ceftriaxone -speech eval ordered and noted dysphagia and recommended modified diet -modified barium swallow ordered, pending read -not needing O2 supplementation now - essentially resolved # dysphagia due to probable underlying parkinson's disease -patient agrees to PEG as rec by HIGH LIFT OPERATOR -gen surg placed PEG 12/08 -NPO has been changed to modified diet by HIGH LIFT OPERATOR - sinemet started evening of 12/08 and titrate up as tolerated to see if this helps his swallow, titratingup today # Hypertension -hold oral meds for now, currently stable without medication # Type 2 diabetes -hold metformin -check glucose, now q6h -insulin sliding scale ordered CODE: DNR/DNI Proxy: Chilango Adams, son DVT prophylaxis: enoxaparin 40 mg daily subcut
--- NOTE | 2022-12-10 10:52 | PT.IPTN ---
Current Diagnoses Pneumonitis due to inhalation of food and vomit (12/06/22) Dysphagia, unspecified (12/06/22) Surgery Performed Operation Date: 12/08/22 15:45 Actual Procedures p Peg Tube Insertion(Not Applicable) - Chuy Andersen MD Physical Therapy Treatment Note M2 PT-IP Current Condition Start: 12/06/22 16:25 Freq: NEEDED Status: Active Protocol: Document 12/06/22 14:25 AB (Rec: 12/06/22 16:36 AB [id number]) Physical Therapy Current Condition Current Condition Evaluation Date 12/06/22 Treatment Diagnosis PNA; difficulty in walking Onset Date 12/06/22 M3 PT-IP Subjective Start: 12/06/22 16:25 Freq: NEEDED Status: Active Protocol: Document 12/10/22 10:35 KS (Rec: 12/10/22 11:51 KS [id number]) Subjective Physical Therapy Visit Type Type Treatment Note Visit Start Time 10:35 Visit Stop Time 10:52 Total Visit Minutes 17 Number of STRIKE PLATE ATTACHER Visits 1 Physical Therapy Visit Comments Patient Comments pt is agreeable to do PT M4 PT-IP Mobility and Gait Start: 12/06/22 16:25 Freq: NEEDED Status: Active Protocol: Document 12/10/22 10:35 KS (Rec: 12/10/22 11:51 KS [id number]) PT-Bed Mobility Assessment Sit to Supine Sit to Supine Contact Guard Assistance,1 Person Assistance,Head of Bed Elevated Scooting Scooting to Edge of Bed Standby Assistance PT-Transfer Assessment Sit to and From Stand Sit to and from Stand Contact Guard Assistance, Minimal Assistance,1 Person Assistance,Use of Upper Extremities Equipment Transfer Assistive Device Gait Belt,Front Wheeled Walker Orthotic/Prosthetic Devices or Brace: No Transfers Transfer Destination Bed Transfer Technique ambulated Transfer Ability Level of Assist Contact Guard Assistance,1 Person Assistance,Use of Upper Extremities Comments Mobility Comments Pt in bed upon arrival, agreeable to ambulate but reports fatigue. CGA for sup<> sit and scooting EOB. CGA to Min A for sit<>Stand w/ FWW. Pt ambulated ~40 ft in room w. FWW. Denied SOB or lightheadedness, O2 94% on RA. Pt returned to bed, again reported fatigue. Left in bed w/ all needs in reach and alarm on. Gait Assessment Gait Gait Assistance Required: Contact Guard Assist Distance (Feet) 40 Able to Maintain Weight Bearing Status Yes During Gait Assistive Devices Assistive Device Gait Belt,Front Wheeled Walker Orthotic/Prosthetic Devices or Brace: No Gait Deviations General Gait Pattern Decreased Stride Length, Decreased Feet Clearance,Step- to Gait Comments Gait Comments See mobility comments PT-Balance Assessment Sitting Balance and Reactions Static Sitting Balance Ability Good Dynamic Sitting Balance Ability Good Standing Balance and Reactions Static Standing Balance Ability Fair Dynamic Standing Balance Ability Fair Device Used FWW M5 PT-IP Objective Assessments Start: 12/06/22 16:25 Freq: NEEDED Status: Active Protocol: Document 12/06/22 14:25 AB (Rec: 12/06/22 16:36 AB [id number]) Orientation Orientation/Cognition Level of Alertness Alert Orientation Name,Place,Situation Safety Awareness Decreased Safety Awareness Memory Description Short Term Impaired Gross Range of Motion Lower Extremity ROM Assessment Within Functional Limits Strength Lower Extremity Strength Hip 4-/5 Knee 4-/5 Sensation Assessment Sensation Gross Sensation WNL Muscle Tone Muscle Tone WNL Yes M6 PT-IP Treatment Start: 12/06/22 16:25 Freq: NEEDED Status: Active Protocol: Document 12/10/22 10:35 KS (Rec: 12/10/22 11:51 KS [id number]) Physical Therapy Treatment Education Education Provided Safety M7 PT-IP Assessment and Plan Start: 12/06/22 16:25 Freq: NEEDED Status: Active Protocol: Document 12/10/22 10:35 KS (Rec: 12/10/22 11:51 KS [id number]) PT Summary Assessment and Plan Potential Rehabilitation Potential Fair Summary Impairments Pain,ROM,Strength,Balance, Coordination,Sensation,Tone, Cognition,Bed Mobility, Transfers,Gait,Activity Tolerance Progress Towards Goals Slow Progress due to Medical Issues,Slow Progress due to Activity Tolerance Assessment Summary Pt requiring CGA to Min A primarily throughout treatment ,. Able to ambulate 40 ft w/ FWW on RA. Quick approach to fatigue. d/c plan depending on progress but at this time, pt may require SNF rehab. will continue to assess progress. Goals Bed Mobility Goal Independent Transfer Goal Independent,Front Wheeled Walker Gait Goal Independent,Front Wheel Walker Gait Distance 200 Other Goals improve transfers and ambulation using LRAD/without AD 300 ft mod I Days to Meet Goals 10 Frequency of Treatment Frequency Of Treatment Once a Day Treatment Plan Physical Therapy Treatment Plan Bed Mobility Training,Transfer Training,Gait Training, Therapeutic Exercise,Balance Retraining,Discharge Planning, Hot or Cold Pack,Neuromuscular Re-ed,Coordination Retraining Precautions Other Precautions falls Recommendations To Nursing Amount of Assist Needed 1 Person Assist Discharge Recommendations PT Discharge Recommendations SNF Rehab Transportation Needs at Discharge Private Vehicle,Wheelchair/ Cabulance
[2022-12-10] MEDS: cefTRIAXone 1,000 MG in SODIUM CHLORIDE 0.9% 100 ML 200 MG IV (13:36)
[2022-12-10] MEDS: CARBIDOPA-LEVODOPA 25/100 TABLET 1 EACH PO ×3 (13:36→20:38)
--- NOTE | 2022-12-10 14:55 | CM.DPC ---
DCP Cont: Per MD, Surgeon was able to successfully place PEG tube and tube feedings initiated and started at 25 ml and awaiting War[facility] Sp[facility] Sunday for further recommendations. Sinemet started as well to determine if this will help pt with his swallow and symptoms. SW met bedside with pt and pt remembered this SW and he confirms he is feeling full with the tube feeds and slightly uncomfortable but hopeful it will give him more strength and energy. Pt also hopeful Sinemet is helpful. Pt had supportive family bedside but they have gone home for now. Pt confirms that his preference is home with tube feedings and HH. SW made initial referral to [facility] to review for his tube feeding at discharge and will call HH agencies tomorrow Sun to discuss pt's insurance and confirm if they can accept and for pt to work more with PT to confirm home plan with pt and family. Plan: SW to follow closely to confirm safe plan of home with family support and [facility] for tube feeding and to confirm HH can accept pt's insurance. ISABEL Spencer
--- NOTE | 2022-12-10 18:26 | PC.NURSE ---
Tube feeds increased to 50cc/hr as max goal appears to be 100cc/hr, will be increased again at 0600 to 75cc/hr if tolerates well. Patients tf residual was 10cc and he has 300cc of free water. Please see order for proper tf parameters. Patient has been turned q2hrs, he has had mouth care done several times today and his teeth just brushed. Dumont present and puttin out yellow urine.
[2022-12-10] MEDS: SODIUM CHLORIDE 0.9% FLUSH 10 ML IV (20:38)
--- NOTE | 2022-12-10 23:14 | PC.NURSE ---
Addendum entered by Giselle Remy R.N. 12/11/22 07:05: Remains on oxygen at 1L/min per NC this morning as when tried on RA still desats intermittently to 90% Addendum entered by Giselle Remy R.N. 12/11/22 06:42: Reports mild discomfort in abdomen but tolerable. Increased tube feed rate to 75cc/h but instructed patient to call RN if any increase in abdominal discomfort and TF rate can be decreased again; verbalizes understanding. Addendum entered by Giselle Remy R.N. 12/11/22 04:32: Patient found to have sat of 88-90% on RA so placed on oxygen at 2.5L/min in order to get sat > 92%. Does state he feels slightly SOB but also noted to be mouth breathing. BS diminished but CTA. Original Note: Patient is alert and oriented although speech is soft so sometimes difficult to understand him. Breath sounds CTA with RA sat of 96%. HRR. Denied nausea. BT hypoactive and has not had a BM since 12/06; denied flatus. Is NPO due to dysphagia and failed swallow screen by PT so had PEG placed and has tube feed at 50cc/h; meds are being given through tube. Indwelling catheter is patent and urine is clear yellow. Is able to assist in repositioning. 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 Waffle cushion is being used under patient and heels are being floated as heels are reddened but blanchable. Allevyn dressings to left forearm are CDI. Has extensive bruises w/scattered abrasions/skin tears to bilateral UE. Denied pain. Fall risk score is high and bed alarm is activated.
[2022-12-11] VITALS (11 sets, daily range): BP systolic 126–144; BP diastolic 65–75; PULSE 62–104; RESP 16–20; TEMP 36.4–37.3; O2SAT 88–96
[2022-12-11] MEDS: INSULIN LISPRO 100 UNIT/ML 3ML VIAL SUBCUT ×4 (02:14→20:13)
[2022-12-11 06:35] LABS: Add Manual Diff / Slide Review NO; Basophils Absolute Auto 100 /uL (0-100); Basophils Percent Auto 1.2 % (0-2); Eosinophils Absolute Auto 200 /uL (0-450); Eosinophils Percent Auto 2.8 % (2-4); Hematocrit 29.9 % (41-53); Hemoglobin 10.3 g/dL (13.5-17.5); Lymphocytes Absolute Auto 1300 /uL (1100-4500); Mean Corpuscular HGB Conc 34.3 % (30-36); Mean Corpuscular Hemoglobin 34.1 PG (26-34); Mean Corpuscular Volume 99.3 fL (80-100); Monocytes Absolute Auto 500 /uL (0-900); Monocytes Percent Auto 7.3 % (3-14); Neutrophils Absolute Auto 5200 /uL (1500-7000); Neutrophils Percent Auto 70.7 % (50-75); Platelet Count 207 X10^3/uL (150-400); Red Blood Cell Count 3.01 X10^6/uL (4.5-5.9); Red Cell Distribution Width 14.5 % (11.6-14.8); White Blood Cell Count 7.4 X10^3/uL (4.5-11.0)
--- NOTE | 2022-12-11 06:45 | DIET.CONS ---
Dietary Consultation Note Admission Date: 12/06/2022 12:41 Assessment: 77y M admitted for SOB on puree diet s/p placement of PEG for enteral nutrition access due to unsafe swallow per GEAR SETTER referred to nutrition for Tube Feeding reccs. Pt has been tolerating continuous enteral feeding rate of 25mL/h with some abd discomfort. Pt BMI 20.5 (underweight). Ht: 187.96 cm Wt: 72.575 kg BMI: 20.5 Last BM: 12/06/22 (12/08/22 14:56) MNA: 12 Navi Score: 17 Diet: 12/08/22 11:32 NPO Diet Diet Modifications: NPO Type: Strict Nutrition Percent Meal Consumed pt tube feed 12/10/22 12:00 Type of Feeding Tube PEG 12/11/22 06:43 Type of Feeding Tube PEG 12/11/22 04:12 Type of Feeding Tube PEG 12/10/22 20:16 Type of Feeding Tube PEG 12/10/22 18:23 Type of Feeding Tube PEG 12/10/22 15:31 Labs: RBC 3.01 X10^6/uL (4.5-5.9) L 12/11/22 06:12 Hgb 10.3 g/dL (13.5-17.5) L 12/11/22 06:12 Hct 29.9 % (41-53) L 12/11/22 06:12 Creatinine 1.39 mg/dL (0.66-1.25) H 12/10/22 05:27 Lactate 1.1 mmol/L (0.7-2.1) 12/06/22 08:45 NT-Pro-B Natriuret Pep 1080 pg/mL (<450) H 12/06/22 08:45 Nutrition Diagnosis: Severe Acute on Chronic Protein Calorie Malnutrition r/t difficulty swallowing aeb BMI 20.5, pt with new PEG for enteral access as PO intake unsafe, MNA score 12. Interventions: Recc initiation bolus feeding via PEG. 240mL Glucerna 1.5 five times daily with 150mL free water flushes q4h. HOB >30 degrees for one hour after feeding EER: 1800kcals (25kcal/kg), 99g pro (1.4g/kg), 2400mL fluids (30mL/kg) Monitoring/Evaluations: [facility] to provide feeding training and home feeding plan on d/c. Electronically Signed by: Sharmila Batista 12/11/22 06:45 Clinical Dietitian [address] [address]
[2022-12-11 06:51] LABS: BUN Creatinine Ratio 24.8 (6-22); Blood Urea Nitrogen 32 mg/dL (9-20); Calcium 9.8 mg/dL (8.4-10.2); Carbon Dioxide 34 mmol/L (22-32); Chloride 103 mmol/L (98-107); Estimated Glomerular Filt Rate 56 mL/min (>60); Glucose 226 mg/dL (80-110); HEMOLYSIS < 15 (0-50); Potassium 3.9 mmol/L (3.4-5.1); Sodium 140 mmol/L (137-145)
[2022-12-11 07:10] LABS: Magnesium 2.1 mg/dL (1.6-2.3); Phosphorous 3.2 mg/dL (2.3-3.7)
--- NOTE | 2022-12-11 08:10 | PM.PN.1 ---
Subjective Subjective Date Patient Seen: 12/11/22 Time Patient Seen: 08:11 Interval history: Patient has PEG tube and receiving feed of 25mL/hour until further evaluation by dietitian. Very pleased with benefit of Sinemet and how is helping with movement disorder. Patient able to speak quite freely and animated today. Still general weakness and and feeong like it is difficult to breather, now on O2. Exam Vital Signs (past 8 hours): - 12/11/22 04:45 12/11/22 05:08 Temperature 99.1 F Pulse Rate 97 H Respiratory Rate 18 Blood Pressure 126/65 Pulse Oximetry 94 96 Oxygen Delivery Method Nasal Cannula Oxygen Flow Rate 2.5 2.5 Fraction of Inspired Oxygen 28 SaO2/FiO2 Ratio 350 Oxygen Delivery Method Nasal Cannula Oxygen Flow Rate 2.5 Narrative Exam Narrative: GEN: frail, weak appearing, but significantly improving, in no acute medical distress CV: regular rate and rhythm PULM: decreased air entry in general, possible fine crackles throughout, poor chest expansion ABD: soft, nontender, nondistended, BS present EXT: warm and well perfused with no edema NEURO: awake, alert, oriented, no focal deficits Objective Labs 12/11/22 06:12 12/11/22 06:12 Labs: Laboratory Results - last 24 hr 12/11/22 06:12 WBC 7.4 RBC 3.01 L Hgb 10.3 L Hct 29.9 L MCV 99.3 MCH 34.1 H MCHC 34.3 RDW 14.5 Plt Count 207 Neut % (Auto) 70.7 Lymph % (Auto) 18.0 L Runnels % (Auto) 7.3 Eos % (Auto) 2.8 Baso % (Auto) 1.2 Neut # (Auto) 5200 Lymph # (Auto) 1300 Runnels # (Auto) 500 Eos # (Auto) 200 Baso # (Auto) 100 Sodium 140 Potassium 3.9 Chloride 103 Carbon Dioxide 34 H BUN 32 H Creatinine 1.29 H Estimated GFR 56 L BUN/Creatinine Ratio 24.8 H Glucose 226 H Calcium 9.8 Phosphorus 3.2 Magnesium 2.1 PFSH Social History household members: none Smoking Status: Current every day smoker alcohol intake: never Assessment & Plan Assessment & Plan narrative: # Acute hypoxemic respiratory failure secondary to pneumonia from likely aspiration -chest xray with left opacity consistent with pneumonia -requiring oxygen for sats initially in the 80s - on antibiotics with azithromycin and ceftriaxone - these have been completed -speech eval ordered and noted dysphagia and recommended modified diet -modified barium swallow ordered, aspiration noted -requiring O2 supplementation again today - need to assess for further aspiration/interstitial edema - chest xray ordered # dysphagia due to probable underlying parkinson's disease -patient agrees to PEG as rec by VICE PRESIDENT OF PROCUREMENT -gen surg placed PEG 12/08 -NPO has been changed to modified diet by VICE PRESIDENT OF PROCUREMENT - may need to re-eval due to need now for O2 supplementation - Sinemet started evening of 12/08 and titrate up as tolerated to see if this helps his swallow, benefitting from Sinemet, now on 4 pills per day # Hypertension -hold oral meds for now, currently stable without medication # Type 2 diabetes -hold metformin -check glucose, now q6h -insulin sliding scale ordered Disposition: expect need for SNF prior to discharege to home CODE: DNR/DNI Proxy: Chilango Adams, son DVT prophylaxis: enoxaparin 40 mg daily subcut
--- NOTE | 2022-12-11 08:21 | DI.RAD.S_ITS ---
PROCEDURE: XR CHEST 1V INDICATIONS: assess for further aspiration/interstitial edema TECHNIQUE: One view of the chest was acquired. COMPARISON: [facility], CR, XR CHEST 1V, 12/06/2022, 8:46. FINDINGS: Surgical changes and devices: None. Lungs and pleura: Asymmetric left hemidiaphragm elevation. Persistent mild left lower lung/retrocardiac alveolar opacity. No new right consolidation or effusion. No pneumothorax. Mediastinum: Mediastinal contours appear normal. Heart size is normal. Bones and chest wall: No suspicious bony lesions. Overlying soft tissues appear unremarkable. IMPRESSION: 1. Persistent left lower lung alveolar opacity. 2. No radiographic evidence of central vascular congestion or interstitial edema. Dictated by: Becka Warner M.D. on 12/11/2022 at 10:20 Approved by: Becka Warner M.D. on 12/11/2022 at 10:22
[2022-12-11] MEDS: THIAMINE 100 MG TABLET PO (08:35)
[2022-12-11] MEDS: CARBIDOPA-LEVODOPA 25/100 TABLET 1 EACH PO ×4 (08:36→20:30)
[2022-12-11] MEDS: MULTIVITAMIN 1 TABLET 1 TAB PO (08:37)
[2022-12-11] MEDS: ENOXAPARIN 40 MG/0.4 ML SYRINGE SUBCUT (08:37)
--- NOTE | 2022-12-11 10:03 | CM.MNRNOTE ---
Addendum entered by Chel Whaley R.N. 12/11/22 11:18: This is a Nursing Note, will continue note under nurses notes. Original Note: Patient states this morning that he was having a hard time breathing. He is on 2L of oxygen and sats are in the 90s. ordered a chest xray and this looks to say that it is unchanged from other xray. He has a peg tube that is getting Glucerna 1.5 and running at 75cc/hr. He seems to be tolerating this well and he is resting comfortably. Residual from tube feed was around 10cc.
--- NOTE | 2022-12-11 11:59 | PT.IPTN ---
Current Diagnoses Pneumonitis due to inhalation of food and vomit (12/06/22) Dysphagia, unspecified (12/06/22) Surgery Performed Operation Date: 12/08/22 15:45 Actual Procedures p Peg Tube Insertion(Not Applicable) - Chuy Andersen MD Physical Therapy Treatment Note M2 PT-IP Current Condition Start: 12/06/22 16:25 Freq: NEEDED Status: Active Protocol: Document 12/06/22 14:25 AB (Rec: 12/06/22 16:36 AB [id number]) Physical Therapy Current Condition Current Condition Evaluation Date 12/06/22 Treatment Diagnosis PNA; difficulty in walking Onset Date 12/06/22 M3 PT-IP Subjective Start: 12/06/22 16:25 Freq: NEEDED Status: Active Protocol: Document 12/11/22 11:59 AW (Rec: 12/11/22 12:17 AW [id number]) Subjective Physical Therapy Visit Type Type Treatment Note Visit Start Time 11:42 Visit Stop Time 11:59 Total Visit Minutes 17 Number of CUSTOMER RESOURCE SPECIALIST Visits 0 Physical Therapy Visit Comments Patient Comments pt is agreeable to do PT M4 PT-IP Mobility and Gait Start: 12/06/22 16:25 Freq: NEEDED Status: Active Protocol: Document 12/11/22 11:59 AW (Rec: 12/11/22 12:17 AW [id number]) PT-Bed Mobility Assessment Supine to Sit Supine to Sit Standby Assistance,Head of Bed Elevated Sit to Supine Sit to Supine Standby Assistance,Head of Bed Elevated Scooting Scooting to Edge of Bed Standby Assistance PT-Transfer Assessment Sit to and From Stand Sit to and from Stand Contact Guard Assistance,1 Person Assistance,Use of Upper Extremities Equipment Transfer Assistive Device Gait Belt,Front Wheeled Walker Orthotic/Prosthetic Devices or Brace: No Transfers Transfer Destination Bed Transfer Technique ambulated with FWW Transfer Ability Level of Assist Contact Guard Assistance,1 Person Assistance,Use of Upper Extremities Comments Mobility Comments Pt is found in bed, willing to participate with PT. He is on 1 L/min with SpO2 stable ~96% all morning. RN states ok to remove NC. SpO2 stable without supplemental oxygen during bed mobility. Pt requires suction to manage secretions twice prior to exiting the bed ; he manages suction independently. CGA to stand to FWW. Pt ambulates 120 feet using FWW with SBA to CGA. SpO2 is stable 92-95% during mobility on room air. Pt returns to the room and is able to transfer back to supine without physical assist . Gait Assessment Gait Gait Assistance Required: Contact Guard Assist Distance (Feet) 120 Assistive Devices Assistive Device Gait Belt,Front Wheeled Walker Orthotic/Prosthetic Devices or Brace: No Gait Deviations General Gait Pattern Decreased Stride Length, Decreased Feet Clearance, Flexed Trunk,Step-to Gait Factors Limiting Gait Function Factors Limiting Gait Function Decreased Activity Tolerance, Decreased Strength,Difficulty Following Directions,Poor Balance Comments Gait Comments See mobility comments PT-Balance Assessment Sitting Balance and Reactions Static Sitting Balance Ability Good Dynamic Sitting Balance Ability Good Standing Balance and Reactions Static Standing Balance Ability Fair Dynamic Standing Balance Ability Fair Device Used FWW M5 PT-IP Objective Assessments Start: 12/06/22 16:25 Freq: NEEDED Status: Active Protocol: Document 12/06/22 14:25 AB (Rec: 12/06/22 16:36 AB [id number]) Orientation Orientation/Cognition Level of Alertness Alert Orientation Name,Place,Situation Safety Awareness Decreased Safety Awareness Memory Description Short Term Impaired Gross Range of Motion Lower Extremity ROM Assessment Within Functional Limits Strength Lower Extremity Strength Hip 4-/5 Knee 4-/5 Sensation Assessment Sensation Gross Sensation WNL Muscle Tone Muscle Tone WNL Yes M6 PT-IP Treatment Start: 12/06/22 16:25 Freq: NEEDED Status: Active Protocol: Document 12/11/22 11:59 AW (Rec: 12/11/22 12:17 AW [id number]) Physical Therapy Treatment Education Education Provided Safety M7 PT-IP Assessment and Plan Start: 12/06/22 16:25 Freq: NEEDED Status: Active Protocol: Document 12/11/22 11:59 AW (Rec: 12/11/22 12:17 AW [id number]) PT Summary Assessment and Plan Potential Rehabilitation Potential Fair Summary Impairments Pain,ROM,Strength,Balance, Coordination,Sensation,Tone, Cognition,Bed Mobility, Transfers,Gait,Activity Tolerance Progress Towards Goals Slow Progress due to Medical Issues,Slow Progress due to Activity Tolerance Assessment Summary Pt's mobility is improved to SBA/CGA this date but he continues to require the support of a FWW due to falls risk. He was able to progress his gait distance to 120 with better tolerance overall but does require increasing assist as distance increases. Pt feels carbidopa/levodopa has been helpful for reducing his tremors and possibly for improving his movement. Pt does exhibit bradykinesia and hypokinesia typical of parkinsonism. PT recommends discharge to SNF for continued rehab and progression back toward independent baseline. Goals Bed Mobility Goal Independent Transfer Goal Independent,Front Wheeled Walker Gait Goal Independent,Front Wheel Walker Gait Distance 200 Other Goals improve transfers and ambulation using LRAD/without AD 300 ft mod I Days to Meet Goals 10 Frequency of Treatment Frequency Of Treatment Once a Day Treatment Plan Physical Therapy Treatment Plan Bed Mobility Training,Transfer Training,Gait Training, Therapeutic Exercise,Balance Retraining,Discharge Planning, Hot or Cold Pack,Neuromuscular Re-ed,Coordination Retraining Other Recommendations and Next Treatment provide amplitude-based cues Focus to address hypokinesia Precautions Other Precautions falls Recommendations To Nursing Amount of Assist Needed 1 Person Assist Discharge Recommendations PT Discharge Recommendations SNF Rehab Transportation Needs at Discharge Private Vehicle,Wheelchair/ Cabulance
--- NOTE | 2022-12-11 13:01 | CM.DPC ---
DCP Cont: Per MD, pt making progress and tube feeding increased and continuing to increase Sinemet to a therapeutic level and seems to be helping pt improve but not yet medically stable to d/c. SW called [facility] and provided update and they do not anticipate any issues with pt's insurance for coverage and awaiting confirmation of PCP as doc to follow. [facility] just needs orders in MD progress note stating the need for tube feeding and the recommendations. SW met bedside with pt and he strongly confirms he is very ready to d/c home kay[place] and declines going to SNF or a facility and wants to d/c home with [facility] and HH. Pt states his PCP is at the [facility] and he states his son and DIL feel comfortable with pt discharge home but no family bedside at this time. Pt feels the Sinemet and tube feeding have helped him. SW called the [place] [facility] and confirm his PCP is Dr. Porfirio Ballard at [facility]. SW updated [facility] and they will continue to follow for possible d/c tomorrow or next couple days when medically stable. SW faxed pt's referral to [facility] and [facility] kindly confirmed they accept pt's [place] [facility] and provided pt's PCP and SW completed F2F for HH RN/PT/ST/AGENT SPA DESK for plan of d/c home. Per PT, still recommending SNF for strengthening and SW observed pt walking the madrigal with FWW with PT and pt making progress and currently denies SNF. Plan: SW to follow closely for plan of d/c to home with family assist and [facility] for tube feeding supplies and new [facility]. Marilee Ch MSW
--- NOTE | 2022-12-11 15:38 | ST.IPTN ---
Visit Care Team Role Provider Type Doctor MD Steve Primary Care Provider Non-Staff Address: Phone: Fax: Chuy Andersen MD Other Providers Physician Address: [address] [place] [address], [address] Marisol Galaviz MD Emergency Provider Physician Referring Provider Address: [address] [place] [address], [address] Terrence Mendieta MD Admit Provider Physician Attending Provider Address: [address] [place] [address], [id number] Fax: DEMAND MANAGER Treatment Note DEMAND MANAGER Treatment Note Start: 12/07/22 12:26 Freq: Status: Active Protocol: Document 12/11/22 15:27 (Rec: 12/11/22 15:38 [id number]) Speech Pathology Treatment Note Session Time Visit Start Time 15:00 Visit Stop Time 15:30 Total Visit Minutes 30 Visit Information Visit Number 4 Setting Treatment Setting Acute Care Visit Type Note Type Treatment Note General Information Patient History Per H&P- 77-year-old male with history of hypertension, CHF, COPD (not on O2) presents by EMS from home for generalized weakness and productive cough. Patient was seen for same on 12/03/2022. He was diagnosed with pneumonia. There was concern for possible aspiration, they performed a swallow test and he performed well with thickened liquids. He was discharged back home. He lives on the same property as his son and [id number], and they help him daily. This morning the son went to check on his father as per usual and found him nearly comatose with gurgling respirations and called 911. Patient was hypoxic by EMS in the 80s and placed on 2 L nasal cannula. On arrival patient was suctioned and secretions were evacuated from the patient's oral cavity. After being suctioned the patient stated he felt much better. MBS findings: VFSS assessment today revealed severe oropharyngeal dysphagia, with delayed swallow initiation, impaired pharyngeal constriction, limited epiglottic inversion, limited UES opening, and mod/ severe residue/pooling base of tongue, valleculae, pyriform sinuses, pharyngeal wall. Hunter aspiration observed during the swallow with liquids and post swallow with all intake from residue/pooling and poor UES opening. Given limited strength and fatigue observed from minimal trials, combined with minimum cough response, reduced breath support and reduced laryngeal sensitivity possibly d/t COPD, all increasing risk of asp and asp pna, pt is not completely safe with any diet level, however if patient chooses to continue oral intake, safest options would be moderately thickened liquids and puree solids but only following aggressive oral care. ST would recommend tube feeding at least temporarily to increase intake and reduce the risk of malnutrition/dehydration. Tube feeding may not reduce the risk of developing aspiration PNA, as patients continue to aspirate on saliva and current research indicates combined use of a water only protocol for liquids combined with aggressive oral care maybe more effective in lowering rates of aspiration PNA, even in patients who are actively aspirating. In either option, Pt requires skilled speech therapy for training of safe swallow and compensatory strategies, and rehab exercise program targeting the pharyngeal squeeze and hyoid excursion to reduce risk of aspiration/ asp pna and increase safety w intake. Assessment Assessment of Improvement Pt seen slightly reclined in bed. Pt stated he was doing better in some ways and feels the medications are helping. DEMAND MANAGER reviewed exercises, particularly effortful swallow , with the pt in order to help build pharyngeal muscles. Pt noted he had not recieved oral care since this am. ST reviewed oral care needs w nursing who stated they had completed it multiple times yeaterday and would complete kaylen. ST also reviewed that pt was allowed (and encouraged to have) ice chips following good oral care. ST provided additional visual aid for effortful swallow w recommended goal dosage. ST provided education on goals going forward being based on response to medication, but that additional ST rehab will likely be necessary at his next location. Reviewed with Patient Goals,Home Exercise Program Patient/Caregiver Understanding Good Plan Therapeutic Contents Home Exercise Program,Oral Motor Training,Swallowing/ Feeding Provided Patient/Caregiver Instruction Home Exercise Program,Plan of Care,Questions/Concerns Therapy Recommendations Continue with Current Program
[2022-12-11] MEDS: SODIUM CHLORIDE 0.9% FLUSH 10 ML IV (20:29)
[2022-12-12] VITALS (15 sets, daily range): BP systolic 125–159; BP diastolic 72–88; PULSE 95–117; RESP 15–20; TEMP 36.2–36.8; O2SAT 87–97
[2022-12-12] MEDS: INSULIN LISPRO 100 UNIT/ML 3ML VIAL SUBCUT ×4 (02:05→20:50)
--- NOTE | 2022-12-12 02:21 | PC.NURSE ---
Pt. C/O feeling bloated & his abdomen is distended, but soft. Dr. Fraser notified via messaging awaiting response, will also notify coordinator Tina Helms RN.
--- NOTE | 2022-12-12 03:36 | PC.NURSE ---
Declined some Reglan, states I feel less bloated now. Encouraged to notify RN if he feel any abdominal discomfort. Will cont. POC & monitor.
[2022-12-12] MEDS: ALBUTEROL 2.5 MG/3 ML NEB (ADULT) INH (05:20)
[2022-12-12 06:16] LABS: Add Manual Diff / Slide Review NO; Basophils Absolute Auto 100 /uL (0-100); Basophils Percent Auto 0.7 % (0-2); Eosinophils Absolute Auto 100 /uL (0-450); Eosinophils Percent Auto 1.5 % (2-4); Hematocrit 32.9 % (41-53); Lymphocytes Absolute Auto 1800 /uL (1100-4500); Lymphocytes Percent Auto 18.7 % (25-40); Mean Corpuscular HGB Conc 33.5 % (30-36); Mean Corpuscular Hemoglobin 33.7 PG (26-34); Mean Corpuscular Volume 100.5 fL (80-100); Monocytes Absolute Auto 600 /uL (0-900); Monocytes Percent Auto 6.4 % (3-14); Neutrophils Absolute Auto 7000 /uL (1500-7000); Neutrophils Percent Auto 72.7 % (50-75); Platelet Count 213 X10^3/uL (150-400); Red Blood Cell Count 3.27 X10^6/uL (4.5-5.9); Red Cell Distribution Width 14.6 % (11.6-14.8); White Blood Cell Count 9.7 X10^3/uL (4.5-11.0)
[2022-12-12 06:32] LABS: Blood Urea Nitrogen 45 mg/dL (9-20); Calcium 10.4 mg/dL (8.4-10.2); Carbon Dioxide 36 mmol/L (22-32); Chloride 102 mmol/L (98-107); Estimated Glomerular Filt Rate 59 mL/min (>60); Glucose 293 mg/dL (80-110); HEMOLYSIS < 15 (0-50); Potassium 4.4 mmol/L (3.4-5.1); Sodium 144 mmol/L (137-145)
--- NOTE | 2022-12-12 07:38 | PC.NURSE ---
Message sent to Dr. Fraser with pt. recent status on NRB mask & HR. 100-120. Report given to JAYCE Oliveros to follow up with our hospitalist.
--- NOTE | 2022-12-12 07:40 | DI.RAD.S_ITS ---
PROCEDURE: XR CHEST 1V INDICATIONS: hypoxia TECHNIQUE: One view of the chest was acquired. COMPARISON: [facility], CR, XR CHEST 1V, 12/11/2022, 8:25. [facility], CR, XR CHEST 1V, 12/06/2022, 8:46. FINDINGS: Surgical changes and devices: None. Lungs and pleura: Elevation of left hemidiaphragm. Improvement in left basilar and retrocardiac opacities. The right lung appears clear. No pneumothorax. Mediastinum: Mediastinal contours appear normal. Heart size is normal. Bones and chest wall: No suspicious bony lesions. Overlying soft tissues appear unremarkable. IMPRESSION: Improvement in left basilar and retrocardiac opacities. Recommend continued follow-up radiograph to resolution. Dictated by: Hugo Chiu M.D. on 12/12/2022 at 10:40 Approved by: Hugo Chiu M.D. on 12/12/2022 at 10:41
--- NOTE | 2022-12-12 07:41 | DI.RAD.S_ITS ---
PROCEDURE: XR ABDOMEN 1V INDICATIONS: hypoxia, new PEG, distension overnight TECHNIQUE: One view of the abdomen acquired. COMPARISON: None. FINDINGS: Surgical changes and devices: Peg tube projecting over the left upper quadrant.. Bowel: Bowel gas pattern is normal. Possible residual contrast is seen within the colon. Soft tissues: No suspicious abdominal calcifications. Visualized solid organ contours appear normal in size. Atherosclerotic vascular calcifications. Bones: No suspicious bony lesions. Decreased osseous mineralization. Degenerative changes of the spine with dextro scoliotic curvature. IMPRESSION: Peg tube projecting over the left upper quadrant. Nonobstructive bowel gas pattern. Dictated by: Hugo Chiu M.D. on 12/12/2022 at 10:41 Approved by: Hugo Chiu M.D. on 12/12/2022 at 10:43
[2022-12-12] MEDS: SODIUM CHLORIDE 0.9% FLUSH 10 ML IV ×2 (09:01→20:52)
--- NOTE | 2022-12-12 09:26 | PT-IP ANOTE ---
Pt is currently on high flow o2 and is tired and would like to rest. PT will attempt to check on pt in the afternoon.
[2022-12-12] MEDS: CARBIDOPA-LEVODOPA 25/100 TABLET 1 EACH PO ×4 (10:17→20:50)
[2022-12-12] MEDS: THIAMINE 100 MG TABLET PO (10:17)
[2022-12-12] MEDS: MULTIVITAMIN 1 TABLET 1 TAB PO (10:18)
[2022-12-12] MEDS: ENOXAPARIN 40 MG/0.4 ML SYRINGE SUBCUT (10:18)
--- NOTE | 2022-12-12 10:50 | DI.CT.S_ITS ---
PROCEDURE: CT ANGIO CHEST PE PROTOCOL INDICATIONS: r/o PE TECHNIQUE: After the administration of intravenous contrast, 2 mm thick sections acquired from the pulmonary apices to the posterior costophrenic angles. 3-dimensional maximum intensity projection (MIP) coronal and sagittal reformats were then acquired through the thorax. For radiation dose reduction, the following was used: automated exposure control, adjustment of mA and/or kV according to patient size. COMPARISON: [facility], CR, XR CHEST 1V, 12/12/2022, 7:45. FINDINGS: Image quality: Good Lungs and pleura: There is near complete collapse of the left lower lobe. The bronchus is occluded. Scattered mild atelectasis and emphysematous changes. Focal lucency, likely air trapping seen in the periphery of the right lower lobe. Significant mucous plugging and debris is seen in the right lower lung bronchi. Multiple other areas of smaller mucous plugging is also present. Suspected atelectasis and bronchiectasis in the right costophrenic angle, versus superimposed airspace inflammation. Centrilobular nodules are seen bilaterally, particularly in lingula. Mediastinum, heart, and esophagus: No pulmonary embolism is identified. No hiatal hernia. No pathologic lymph nodes by size criteria. Chest wall and thyroid: Thyroid is unremarkable. Chest wall is unremarkable. Upper abdomen: No gross abnormality on these arterial phase images. Suspected senescent perinephric fat stranding. Upper abdomen is not well evaluated on this study. Partially seen gastric device. Bones: There are degenerative changes. No acute or suspicious osseous finding. IMPRESSION: No acute pulmonary embolism is identified. Multifocal mucous plugging and airway debris, particularly involving the right lower lobe, with downstream probable atelectasis versus focal airspace inflammation. Centrilobular nodules, most confluent in the lingula, likely infectious/inflammatory. Complete atelectasis and occlusion of the left lower lobe parenchyma and bronchus, possibly due to mucous plug versus airway mass. Consider short interval follow-up imaging. If persistent, consider bronchoscopy. Dictated by: Pancho Wheeler M.D. on 12/12/2022 at 12:28 Approved by: Pancho Wheeler M.D. on 12/12/2022 at 12:35
--- NOTE | 2022-12-12 16:07 | OT.IPNOTE ---
Pt on hi-juan , asleep and to check on the pt tomorrow
--- NOTE | 2022-12-12 16:09 | OT.IPNOTE ---
Pt asleep , to check on the pt tomorrow for OT.
--- NOTE | 2022-12-12 16:09 | ST.IPTN ---
Visit Care Team Role Provider Type Doctor MD Steve Primary Care Provider Non-Staff Address: Phone: Fax: Chuy Andersen MD Other Providers Physician Address: [address] [place] [address], [id number] Marisol Galaviz MD Emergency Provider Physician Referring Provider Address: [address] [place] [address], [address] Terrence Mendieta MD Admit Provider Physician Attending Provider Address: [address] [place] [address], [phone] Fax: VETERINARY LIVESTOCK INSPECTOR Treatment Note VETERINARY LIVESTOCK INSPECTOR Treatment Note Start: 12/07/22 12:26 Freq: Status: Active Protocol: Document 12/12/22 15:59 DH (Rec: 12/12/22 16:09 [id number]) Speech Pathology Treatment Note Session Time Visit Start Time 15:40 Visit Stop Time 16:00 Total Visit Minutes 20 Visit Information Visit Number 5 Setting Treatment Setting Acute Care Visit Type Note Type Treatment Note General Information Patient History Per H&P- 77-year-old male with history of hypertension, CHF, COPD (not on O2) presents by EMS from home for generalized weakness and productive cough. Patient was seen for same on 12/03/2022. He was diagnosed with pneumonia. There was concern for possible aspiration, they performed a swallow test and he performed well with thickened liquids. He was discharged back home. He lives on the same property as his son and [id number], and they help him daily. This morning the son went to check on his father as per usual and found him nearly comatose with gurgling respirations and called 911. Patient was hypoxic by EMS in the 80s and placed on 2 L nasal cannula. On arrival patient was suctioned and secretions were evacuated from the patient's oral cavity. After being suctioned the patient stated he felt much better. MBS findings: VFSS assessment today revealed severe oropharyngeal dysphagia, with delayed swallow initiation, impaired pharyngeal constriction, limited epiglottic inversion, limited UES opening, and mod/ severe residue/pooling base of tongue, valleculae, pyriform sinuses, pharyngeal wall. Hunter aspiration observed during the swallow with liquids and post swallow with all intake from residue/pooling and poor UES opening. Given limited strength and fatigue observed from minimal trials, combined with minimum cough response, reduced breath support and reduced laryngeal sensitivity possibly d/t COPD, all increasing risk of asp and asp pna, pt is not completely safe with any diet level, however if patient chooses to continue oral intake, safest options would be moderately thickened liquids and puree solids but only following aggressive oral care. ST would recommend tube feeding at least temporarily to increase intake and reduce the risk of malnutrition/dehydration. Tube feeding may not reduce the risk of developing aspiration PNA, as patients continue to aspirate on saliva and current research indicates combined use of a water only protocol for liquids combined with aggressive oral care maybe more effective in lowering rates of aspiration PNA, even in patients who are actively aspirating. In either option, Pt requires skilled speech therapy for training of safe swallow and compensatory strategies, and rehab exercise program targeting the pharyngeal squeeze and hyoid excursion to reduce risk of aspiration/ asp pna and increase safety w intake. Assessment Assessment of Improvement Pt seen reclined in bed and verbalized strong fatigue. When asked about oral care, pt indicated a cup at bedside with a swab in it. ST provided pt education on change in therapy to pause swallow rehab exercises d/t fatigue and pulmonary issues, and target ensuring appropriate oral care with toothbrush and cleaning entire mouth throughout the day followed by ice chips as a higher priority. Pt verbalized agreement. ST provided education to novel caregivers re importance of aggressive oral care even with feeding tube, role of mouth bacteria in developing aspiration PNA from saliva, and need to continue to engage the swallow with ice chips following oral care, which may also have the added benefit of loosening mucus in pharynx. Caregivers verbalized understanding and agreement. Reviewed with Patient Goals,Home Exercise Program Patient/Caregiver Understanding Good Plan Therapeutic Contents Home Exercise Program,Oral Motor Training,Swallowing/ Feeding Provided Patient/Caregiver Instruction Home Exercise Program,Plan of Care,Questions/Concerns Therapy Recommendations Continue with Current Program
--- NOTE | 2022-12-12 17:01 | P.PN_ITS ---
Subjective Subjective Date Patient Seen: 12/11/22 Time Patient Seen: 08:11 Interval history: Patient with worsening hypoxia today. CT angio performed which thankfully showed no PE but did show mucous plugging. His tube feeds were shut off with worsening abdominal distension initially, radiographs were unremarkable. Exam Vital Signs (past 8 hours): - 12/12/22 09:07 12/12/22 10:00 12/12/22 11:53 Temperature Pulse Rate 105 H 107 H Respiratory Rate 20 20 Blood Pressure Pulse Oximetry 97 93 91 Oxygen Delivery Method High Flow Nasal Cannula Oxygen Flow Rate 60 12/12/22 12:00 12/12/22 13:54 12/12/22 16:00 Temperature 98.0 F Pulse Rate 108 H 108 H Respiratory Rate 18 16 Blood Pressure 148/88 H 125/72 Pulse Oximetry 88 L 97 93 Oxygen Delivery Method Non -Rebreather Oxygen Flow Rate 15 0 Fraction of Inspired Oxygen 51 SaO2/FiO2 Ratio 350 Oxygen Delivery Method Non -Rebreather Oxygen Flow Rate 0 Narrative Exam Narrative: GEN: frail, weak appearing, but significantly improving, in no acute medical distress CV: regular rate and rhythm PULM: decreased air entry in general, possible fine crackles throughout, poor chest expansion ABD: soft, nontender, nondistended, BS present EXT: warm and well perfused with no edema NEURO: awake, alert, oriented, no focal deficits Objective Labs 12/12/22 05:41 12/12/22 05:41 Labs: Laboratory Results - last 24 hr 12/12/22 05:41 WBC 9.7 RBC 3.27 L Hgb 11.0 L Hct 32.9 L MCV 100.5 H MCH 33.7 MCHC 33.5 RDW 14.6 Plt Count 213 Neut % (Auto) 72.7 Lymph % (Auto) 18.7 L [place] % (Auto) 6.4 Eos % (Auto) 1.5 L Baso % (Auto) 0.7 Neut # (Auto) 7000 Lymph # (Auto) 1800 [place] # (Auto) 600 Eos # (Auto) 100 Baso # (Auto) 100 Sodium 144 Potassium 4.4 Chloride 102 Carbon Dioxide 36 H BUN 45 H Creatinine 1.25 Estimated GFR 59 L BUN/Creatinine Ratio 36.0 H Glucose 293 H Calcium 10.4 H PFSH Social History household members: none Smoking Status: Current every day smoker alcohol intake: never Assessment & Plan Assessment & Plan narrative: # Acute hypoxemic respiratory failure secondary to pneumonia from likely aspiration -chest xray with left opacity consistent with pneumonia -requiring oxygen for sats initially in the 80s - on antibiotics with azithromycin and ceftriaxone - these have been completed -speech eval ordered and noted dysphagia and recommended modified diet -modified barium swallow ordered, aspiration noted -requiring O2 supplementation again today and acutely worsening, CT negative for PE, did show mucous plugging. - started on robitussin via PEG for mucolytic, ordered for chest PT with respiratory therapy to break up mucous plug. - will restart antibiotic therapy for precautionary purposes, likely discontinue tomorrow if improving. -resume tube feeds at recommended intervals per dietary. # dysphagia due to probable underlying parkinson's disease -patient agrees to PEG as rec by [facility] -gen surg placed PEG 12/08 -NPO has been changed to modified diet by [facility] - may need to re-eval due to need now for O2 supplementation - Sinemet started evening of 12/08 and titrate up as tolerated to see if this helps his swallow, benefitting from Sinemet, now on 4 pills per day # Hypertension -hold oral meds for now, currently stable without medication # Type 2 diabetes -hold metformin -check glucose, now q6h -insulin sliding scale ordered Disposition: Recommended for SNF, but patient declines. Will discharge home once improved from current respiratory decline due to mucous plugging. CODE: DNR/DNI Proxy: Chilango Adams, son DVT prophylaxis: enoxaparin 40 mg daily subcut
[2022-12-12] MEDS: PIPERACILLIN/TAZO 3.375 GM in SODIUM CHLORIDE 0.9% 100 ML IV (18:02)
[2022-12-12] MEDS: ACETAMINOPHEN SUSP 650 MG/20.3 ML UDC TUBE (18:50)
[2022-12-12] MEDS: METOCLOPRAMIDE 10 MG/2 ML INJ 5 MG IV (18:50)
[2022-12-12] MEDS: INSULIN GLARGINE 100 UNIT/ML 3ML PEN 10 UNIT SUBCUT (20:51)
[2022-12-13] VITALS (22 sets, daily range): BP systolic 111–154; BP diastolic 64–87; PULSE 60–110; RESP 14–30; TEMP 35.8–37.9; O2SAT 90–99
[2022-12-13] MEDS: PIPERACILLIN/TAZO 3.375 GM in SODIUM CHLORIDE 0.9% 100 ML IV ×3 (01:45→16:35)
[2022-12-13] MEDS: INSULIN LISPRO 100 UNIT/ML 3ML VIAL SUBCUT ×4 (01:59→20:04)
[2022-12-13 05:21] LABS: Add Manual Diff / Slide Review NO; Basophils Absolute Auto 0 /uL (0-100); Basophils Percent Auto 0.4 % (0-2); Eosinophils Absolute Auto 200 /uL (0-450); Eosinophils Percent Auto 1.6 % (2-4); Hematocrit 30.6 % (41-53); Hemoglobin 10.3 g/dL (13.5-17.5); Lymphocytes Absolute Auto 1100 /uL (1100-4500); Lymphocytes Percent Auto 11.8 % (25-40); Mean Corpuscular HGB Conc 33.6 % (30-36); Mean Corpuscular Hemoglobin 34.1 PG (26-34); Mean Corpuscular Volume 101.6 fL (80-100); Monocytes Absolute Auto 500 /uL (0-900); Monocytes Percent Auto 5.4 % (3-14); Neutrophils Absolute Auto 7900 /uL (1500-7000); Neutrophils Percent Auto 80.8 % (50-75); Platelet Count 202 X10^3/uL (150-400); Red Blood Cell Count 3.01 X10^6/uL (4.5-5.9); Red Cell Distribution Width 14.9 % (11.6-14.8); White Blood Cell Count 9.7 X10^3/uL (4.5-11.0)
[2022-12-13 05:29] LABS: BUN Creatinine Ratio 34.6 (6-22); Blood Urea Nitrogen 54 mg/dL (9-20); Chloride 104 mmol/L (98-107); Estimated Glomerular Filt Rate 45 mL/min (>60); Glucose 239 mg/dL (80-110); HEMOLYSIS < 15 (0-50); Potassium 4.4 mmol/L (3.4-5.1); Sodium 146 mmol/L (137-145)
[2022-12-13 05:35] LABS: Carbon Dioxide 37 mmol/L (22-32)
[2022-12-13] MEDS: ACETAMINOPHEN SUSP 650 MG/20.3 ML UDC TUBE (09:48)
[2022-12-13] MEDS: ENOXAPARIN 40 MG/0.4 ML SYRINGE SUBCUT (09:48)
[2022-12-13] MEDS: MULTIVITAMIN 1 TABLET 1 TAB PO (09:49)
[2022-12-13] MEDS: CARBIDOPA-LEVODOPA 25/100 TABLET 1 EACH PO ×4 (09:49→20:54)
[2022-12-13] MEDS: SODIUM CHLORIDE 0.9% FLUSH 10 ML IV ×2 (09:50→20:55)
[2022-12-13] MEDS: THIAMINE 100 MG TABLET PO (09:50)
[2022-12-13] MEDS: ALBUTEROL 2.5 MG/3 ML NEB (ADULT) INH (10:46)
--- NOTE | 2022-12-13 11:09 | ST.IPTN ---
Visit Care Team Role Provider Type Doctor MD Steve Primary Care Provider Non-Staff Address: Phone: Fax: Chuy Andersen MD Other Providers Physician Address: [address] [place] [address], [address] Marisol Galaviz MD Emergency Provider Physician Referring Provider Address: [address] [place] [address], [address] Terrence Mendieta MD Admit Provider Physician Attending Provider Address: [address] [place] [address], [address] Fax: FIELD MARKETER Treatment Note FIELD MARKETER Treatment Note Start: 12/07/22 12:26 Freq: Status: Active Protocol: Document 12/13/22 10:56 (Rec: 12/13/22 11:09 [id number]) Speech Pathology Treatment Note Session Time Visit Start Time 10:00 Visit Stop Time 10:45 Total Visit Minutes 45 Visit Information Visit Number 6 Setting Treatment Setting Acute Care Visit Type Note Type Treatment Note General Information Patient History Per H&P- 77-year-old male with history of hypertension, CHF, COPD (not on O2) presents by EMS from home for generalized weakness and productive cough. Patient was seen for same on 12/03/2022. He was diagnosed with pneumonia. There was concern for possible aspiration, they performed a swallow test and he performed well with thickened liquids. He was discharged back home. He lives on the same property as his son and [id number], and they help him daily. This morning the son went to check on his father as per usual and found him nearly comatose with gurgling respirations and called 911. Patient was hypoxic by EMS in the 80s and placed on 2 L nasal cannula. On arrival patient was suctioned and secretions were evacuated from the patient's oral cavity. After being suctioned the patient stated he felt much better. MBS findings: VFSS assessment today revealed severe oropharyngeal dysphagia, with delayed swallow initiation, impaired pharyngeal constriction, limited epiglottic inversion, limited UES opening, and mod/ severe residue/pooling base of tongue, valleculae, pyriform sinuses, pharyngeal wall. Hunter aspiration observed during the swallow with liquids and post swallow with all intake from residue/pooling and poor UES opening. Given limited strength and fatigue observed from minimal trials, combined with minimum cough response, reduced breath support and reduced laryngeal sensitivity possibly d/t COPD, all increasing risk of asp and asp pna, pt is not completely safe with any diet level, however if patient chooses to continue oral intake, safest options would be moderately thickened liquids and puree solids but only following aggressive oral care. ST would recommend tube feeding at least temporarily to increase intake and reduce the risk of malnutrition/dehydration. Tube feeding may not reduce the risk of developing aspiration PNA, as patients continue to aspirate on saliva and current research indicates combined use of a water only protocol for liquids combined with aggressive oral care maybe more effective in lowering rates of aspiration PNA, even in patients who are actively aspirating. In either option, Pt requires skilled speech therapy for training of safe swallow and compensatory strategies, and rehab exercise program targeting the pharyngeal squeeze and hyoid excursion to reduce risk of aspiration/ asp pna and increase safety w intake. Assessment Patient Response to Treatment Fair Assessment of Improvement Pt seen reclined in bed and verbalized he was feeling 'so- so. Pt affect was more alert with improved color. son stated they had started him on high flow humidified O2 to attempt to loosen mucus in chest. When asked about oral care and ice chips, pt stated he would like to participate w therapy trials. ST provided oral care and ice chips to engage the swallow mechanism and attempt to loosen mucus in the pharynx. Pt stated he felt the ice was working well to loosen the mucus and he was able to cough/suction up a fair amount, increasing comfort levels. ST provided education to novel caregivers re importance of aggressive oral care even with feeding tube, role of mouth bacteria in developing aspiration PNA from saliva, and need to continue to engage the swallow with ice chips following oral care, which may also have the added benefit of loosening mucus in pharynx. Caregivers verbalized understanding and agreement. Pt and son requested meeting w [facility] re setting up hospice at home. St informed SW(raúl) who stated she would go in as asoon as able. Reviewed with Patient Goals,Home Exercise Program Patient/Caregiver Understanding Good Plan Therapeutic Contents Swallowing/Feeding Provided Patient/Caregiver Instruction Home Exercise Program,Plan of Care,Questions/Concerns Therapy Recommendations Continue with Current Program
--- NOTE | 2022-12-13 12:05 | PT.IPTN ---
Current Diagnoses Pneumonitis due to inhalation of food and vomit (12/06/22) Dysphagia, unspecified (12/06/22) Surgery Performed Operation Date: 12/08/22 15:45 Actual Procedures p Peg Tube Insertion(Not Applicable) - Chuy Andersen MD Physical Therapy Treatment Note M2 PT-IP Current Condition Start: 12/06/22 16:25 Freq: NEEDED Status: Active Protocol: Document 12/06/22 14:25 AB (Rec: 12/06/22 16:36 AB [id number]) Physical Therapy Current Condition Current Condition Evaluation Date 12/06/22 Treatment Diagnosis PNA; difficulty in walking Onset Date 12/06/22 M3 PT-IP Subjective Start: 12/06/22 16:25 Freq: NEEDED Status: Active Protocol: Document 12/13/22 12:37 TS (Rec: 12/13/22 12:49 TS [id number]) Subjective Physical Therapy Visit Type Type Treatment Note Visit Start Time 12:05 Visit Stop Time 12:15 Total Visit Minutes 10 Notes Split treat with OT. Number of CLINICAL REHABILITATION AIDE Visits 1 Physical Therapy Visit Comments Patient Comments Pt found resting in bed, on high flow o2, Spo2 91%, pt agreeable to PT. M4 PT-IP Mobility and Gait Start: 12/06/22 16:25 Freq: NEEDED Status: Active Protocol: Document 12/13/22 12:37 TS (Rec: 12/13/22 12:49 TS [id number]) PT-Bed Mobility Assessment Supine to Sit Supine to Sit Standby Assistance,Head of Bed Elevated Scooting Scooting to Edge of Bed Standby Assistance PT-Transfer Assessment Sit to and From Stand Sit to and from Stand Moderate Assistance,1 Person Assistance,Use of Upper Extremities Equipment Transfer Assistive Device Gait Belt,Front Wheeled Walker Orthotic/Prosthetic Devices or Brace: No Transfers Transfer Destination Chair,Bedside Commode Transfer Technique Stand Step Pivot Transfer Ability Level of Assist Minimal Assistance,Moderate Assistance,1 Person Assistance ,Use of Upper Extremities Comments Mobility Comments Supine to sit SBA with BUE support and HOB elevated. Sit to stand ModA for retrolean in standing and x1 posterior LOB , cues provided for weight forward. He performed stand step pivot to commode ModA for balance and FWW management. After use of commode, pt performed stand step pivot to chair Ghanshyam for balance, required cues for turning with FWW. Pt was left in chair, all needs met, RN notified. Gait Assessment Gait Gait Assistance Required: Contact Guard Assist Distance (Feet) 5 Able to Maintain Weight Bearing Status Yes During Gait Assistive Devices Assistive Device Gait Belt,Front Wheeled Walker Orthotic/Prosthetic Devices or Brace: No Gait Deviations General Gait Pattern Decreased Stride Length, Decreased Feet Clearance, Flexed Trunk,Step-to Gait Factors Limiting Gait Function Factors Limiting Gait Function Decreased Activity Tolerance, Decreased Strength,Difficulty Following Directions,Poor Balance,Poor Safety Awareness, Respiratory Distress Comments Gait Comments See mobility comments PT-Balance Assessment Sitting Balance and Reactions Static Sitting Balance Ability Good Dynamic Sitting Balance Ability Good Standing Balance and Reactions Static Standing Balance Ability Fair Dynamic Standing Balance Ability Fair Device Used FWW M5 PT-IP Objective Assessments Start: 12/06/22 16:25 Freq: NEEDED Status: Active Protocol: Document 12/06/22 14:25 AB (Rec: 12/06/22 16:36 AB [id number]) Orientation Orientation/Cognition Level of Alertness Alert Orientation Name,Place,Situation Safety Awareness Decreased Safety Awareness Memory Description Short Term Impaired Gross Range of Motion Lower Extremity ROM Assessment Within Functional Limits Strength Lower Extremity Strength Hip 4-/5 Knee 4-/5 Sensation Assessment Sensation Gross Sensation WNL Muscle Tone Muscle Tone WNL Yes M6 PT-IP Treatment Start: 12/06/22 16:25 Freq: NEEDED Status: Active Protocol: Document 12/13/22 12:37 TS (Rec: 12/13/22 12:49 TS [id number]) Physical Therapy Treatment Education Education Provided Safety M7 PT-IP Assessment and Plan Start: 12/06/22 16:25 Freq: NEEDED Status: Active Protocol: Document 12/13/22 12:37 TS (Rec: 12/13/22 12:49 TS [id number]) PT Summary Assessment and Plan Potential Rehabilitation Potential Fair Summary Impairments Pain,ROM,Strength,Balance, Coordination,Sensation,Tone, Cognition,Bed Mobility, Transfers,Gait,Activity Tolerance Progress Towards Goals Slow Progress due to Medical Issues,Slow Progress due to Activity Tolerance Assessment Summary Pt is making slow progress with his mobility this session . He is SBA for bed mobility with HOB elevated. He had some retroleaning coming into standing with x1 posterior LOB requiring ModA for sit to stand. He performed stand pivot x1 ModA to commode for balance and FWW management and x1 Ghanshyam to chair, he requires max cueing for transfer sequencing. Pt remains a high falls risk and remains on high flow o2. Pt would benefit from SNF rehab to progress functional mobility and strength. Goals Bed Mobility Goal Independent Transfer Goal Independent,Front Wheeled Walker Gait Goal Independent,Front Wheel Walker Gait Distance 200 Other Goals improve transfers and ambulation using LRAD/without AD 300 ft mod I Days to Meet Goals 10 Frequency of Treatment Frequency Of Treatment Once a Day Treatment Plan Physical Therapy Treatment Plan Bed Mobility Training,Transfer Training,Gait Training, Therapeutic Exercise,Balance Retraining,Discharge Planning, Hot or Cold Pack,Neuromuscular Re-ed,Coordination Retraining Other Recommendations and Next Treatment provide amplitude-based cues Focus to address hypokinesia Precautions Other Precautions falls Recommendations To Nursing Amount of Assist Needed 1 Person Assist Discharge Recommendations PT Discharge Recommendations SNF Rehab Transportation Needs at Discharge Private Vehicle,Wheelchair/ Cabulance
--- NOTE | 2022-12-13 12:16 | OT.IP.TRT ---
Current Diagnoses Pneumonitis due to inhalation of food and vomit (12/06/22) Dysphagia, unspecified (12/06/22) Surgery Performed Operation Date: 12/08/22 15:45 Actual Procedures p Peg Tube Insertion(Not Applicable) - Chuy Andersen MD Occupational Therapy Treatment Note M2 OT-IP Current Condition Start: 12/07/22 13:32 Freq: Status: Active Protocol: Document 12/07/22 13:32 [facility] (Rec: 12/07/22 14:05 [facility] [id number]) Occupational Therapy Current Condition Current Condition Evaluation Date 12/07/22 Treatment Diagnosis PNA, weakness Diagnosis Onset Date 12/06/22 M3 OT- IP Subjective and Pain Start: 12/07/22 13:32 Freq: Status: Active Protocol: Document 12/13/22 12:39 [facility] (Rec: 12/13/22 12:43 [facility] [id number]) OT- Subjective Occupational Therapy Visit Type Type Treatment Note Visit Start Time 12:16 Visit Stop Time 12:34 Total Visit Minutes 18 Occupational Therapy Visit Comments Patient Comments Pt agreed to get up, CORPORATE OPERATIONS COMPLIANCE MANAGER also present and able to assist with all cording/tubing management needs. Patient/Caregiver Goals TO get better. OT Pain Assessment Pain When Pain Assessed At Rest Pain Present Pain Present Denied Pain M4 OT- IP ADL's Start: 12/07/22 13:32 Freq: Status: Active Protocol: Document 12/13/22 12:39 [facility] (Rec: 12/13/22 12:43 [facility] [id number]) OT ADL-Grooming Comments OT Grooming Comments Pt able to brush his hair after set-up. OT ADL-Dressing General Eval Lower Body Dressing Ability Maximum Assistance Comments OT Dressing Comments Pt too tired and needing assist to andre his socks at this time. OT ADL-Toileting General Evaluation Toileting Ability Maximum Assistance Comments OT Toileting Comments Pt needing assist to help andre brief over his feet and up over his hips. Pt still having stokes in place. OT ADL-Bathing Bathing Type Bathing Type Sponge Bath General Evaluation Bathing Ability Moderate Assistance Comments OT Bathing Comments Pt able to sponge his arms and face at this time. M6 OT- IP Functional Cognition Start: 12/07/22 13:32 Freq: Status: Active Protocol: Document 12/13/22 12:39 [facility] (Rec: 12/13/22 12:43 [facility] [id number]) Cognitive Factors Limiting Selfcare Function Cognitive Comments Cognitive Assessment Comments Pt able to follow commands for ADl and mobility needs. M7 OT- IP Mobility and Balance Start: 12/07/22 13:32 Freq: Status: Active Protocol: Document 12/13/22 12:39 [facility] (Rec: 12/13/22 12:43 [facility] [id number]) OT- Balance Assessment Sitting Balance and Reactions Static Sitting Balance Ability Good Dynamic Sitting Balance Ability Fair Standing Balance and Reactions Static Standing Balance Ability Fair Dynamic Standing Balance Ability Poor Comments Other Balance Tests/Deviations/Treatment Pt tends to lean on his heals : when up on his feet. M8 OT- IP Objective Assessments Start: 12/07/22 13:32 Freq: Status: Active Protocol: Document 12/07/22 13:32 [facility] (Rec: 12/07/22 14:05 [facility] [id number]) OT Gross Range of Motion Upper Extremity Range of Motion Assessment Bilaterally Impaired ROM Impairments BUE 0-90 shoulder flexion OT Strength Comments Strength Comments 4+/5 for availble ROM OT-Muscle Tone Assessment Muscle Tone WNL Yes M9 OT- IP Assessment and Plan Start: 12/07/22 13:32 Freq: Status: Active Protocol: Document 12/08/22 14:00 [facility] (Rec: 12/08/22 14:27 [facility] [id number]) OT Summary Assessment and Plan Potential Rehabilitation Potential good Analytic Complexity at Evaluation Moderate Summary OT Impairments Range of Motion,Strength, Balance,Functional Mobility, Self-Feeding,Grooming,Dressing ,Toileting,Bathing,Toilet Transfers,Shower Transfers Progress Towards Goals Progressing Toward Goals,Slow Progress due to Medical Issues Assessment Summary Pt having more O2 needs and decreased activity tolerance and balance. Pt will benefit from skilled rehab when medically stable. Pt is very cooperative and pleasant. Goals Self-Feeding Goal Independent Grooming Goal Independent Dressing Goal Independent Toileting Goal Independent Bathing Goal Independent Toilet Transfer Goal Independent Shower Transfer Goal Independent Days to Meet Goals 30 Frequency of Treatment Frequency Of Treatment Once a Day Treatment Plan OT Treatment Plan ADL Training,Functional Mobility,Patient/Family Education,Discharge Planning Discharge Recommendations OT Discharge Recommendations SNF Transportation Needs at Discharge wheelchair
--- NOTE | 2022-12-13 12:43 | OT.IP.TRT ---
Current Diagnoses Pneumonitis due to inhalation of food and vomit (12/06/22) Dysphagia, unspecified (12/06/22) Surgery Performed Operation Date: 12/08/22 15:45 Actual Procedures p Peg Tube Insertion(Not Applicable) - Chuy Andersen MD Occupational Therapy Treatment Note M2 OT-IP Current Condition Start: 12/07/22 13:32 Freq: Status: Active Protocol: Document 12/07/22 13:32 [facility] (Rec: 12/07/22 14:05 [facility] [id number]) Occupational Therapy Current Condition Current Condition Evaluation Date 12/07/22 Treatment Diagnosis PNA, weakness Diagnosis Onset Date 12/06/22 M3 OT- IP Subjective and Pain Start: 12/07/22 13:32 Freq: Status: Active Protocol: Document 12/13/22 12:39 [facility] (Rec: 12/13/22 12:43 [facility] [id number]) OT- Subjective Occupational Therapy Visit Type Type Treatment Note Visit Start Time 12:16 Visit Stop Time 12:34 Total Visit Minutes 18 Occupational Therapy Visit Comments Patient Comments Pt agreed to get up, GAMING COMMISSIONER also present and able to assist with all cording/tubing management needs. Patient/Caregiver Goals TO get better. OT Pain Assessment Pain When Pain Assessed At Rest Pain Present Pain Present Denied Pain M4 OT- IP ADL's Start: 12/07/22 13:32 Freq: Status: Active Protocol: Document 12/13/22 12:39 [facility] (Rec: 12/13/22 12:43 [facility] [id number]) OT ADL-Grooming Comments OT Grooming Comments Pt able to brush his hair after set-up. OT ADL-Dressing General Eval Lower Body Dressing Ability Maximum Assistance Comments OT Dressing Comments Pt too tired and needing assist to andre his socks at this time. OT ADL-Toileting General Evaluation Toileting Ability Maximum Assistance Comments OT Toileting Comments Pt needing assist to help andre brief over his feet and up over his hips. Pt still having stokes in place. OT ADL-Bathing Bathing Type Bathing Type Sponge Bath General Evaluation Bathing Ability Moderate Assistance Comments OT Bathing Comments Pt able to sponge his arms and face at this time. M5 OT- IP IADL's Start: 12/07/22 13:32 Freq: Status: Active Protocol: Document 12/07/22 13:32 [facility] (Rec: 12/07/22 14:05 [facility] [id number]) OT-Instrumental Activities of Daily Living Deficits IADL Deficits Identified Deficits Home Safety Awareness Awareness of Need for Assistance at Home Good Awareness Ability to Problem Solve Emergency Able to Problem Solve Situations Medication Management Medication Management Comments Pt states does his own. Money Management Money Management Comments Pt states does his own. Meal Preparation Meal Preparation Comments Pt states does his own. Claims Adjuster Supervisor Claims Adjuster Supervisor Comments Pt just gets assist for driving and grocery shopping. Driving Driving Caregiver Provides Assist M6 OT- IP Functional Cognition Start: 12/07/22 13:32 Freq: Status: Active Protocol: Document 12/13/22 12:39 [facility] (Rec: 12/13/22 12:43 [facility] [id number]) Cognitive Factors Limiting Selfcare Function Cognitive Comments Cognitive Assessment Comments Pt able to follow commands for ADl and mobility needs. M7 OT- IP Mobility and Balance Start: 12/07/22 13:32 Freq: Status: Active Protocol: Document 12/13/22 12:39 [facility]13[facility]22 [id number]- Balance Assessment Sitting Balance and Reactions Static Sitting Balance Ability Good Dynamic Sitting Balance Ability Fair Standing Balance and Reactions Static Standing Balance Ability Fair Dynamic Standing Balance Ability Poor Comments Other Balance Tests/Deviations/Treatment Pt tends to lean on his heals : when up on his feet. M8 OT- IP Objective Assessments Start: 12/07/22 13:32 Freq: Status: Active Protocol: Document 12/07/22 13:32 [facility] (Rec: 12/07/22 14:05 [facility] [id number]) OT Gross Range of Motion Upper Extremity Range of Motion Assessment Bilaterally Impaired ROM Impairments BUE 0-90 shoulder flexion OT Strength Comments Strength Comments 4+/5 for availble ROM OT-Muscle Tone Assessment Muscle Tone WNL Yes M9 OT- IP Assessment and Plan Start: 12/07/22 13:32 Freq: Status: Active Protocol: Document 12/08/22 14:00 [facility] (Rec: 12/08/22 14:27 [facility] [id number]) OT Summary Assessment and Plan Potential Rehabilitation Potential Excellent Analytic Complexity at Evaluation Moderate Summary OT Impairments Range of Motion,Strength, Balance,Functional Mobility, Self-Feeding,Grooming,Dressing ,Toileting,Bathing,Toilet Transfers,Shower Transfers Progress Towards Goals Progressing Toward Goals,Slow Progress due to Medical Issues Assessment Summary Pt having more O2 needs and on hi-juan. Pt still cooperative , pleasant and agreeable to to therapy. Pt will benefit form skilled rehab when medically stable. Self-Feeding Goal Independent Grooming Goal Independent Dressing Goal Independent Toileting Goal Independent Bathing Goal Independent Toilet Transfer Goal Independent Shower Transfer Goal Independent Days to Meet Goals 30 Frequency of Treatment Frequency Of Treatment Once a Day Treatment Plan OT Treatment Plan ADL Training,Functional Mobility,Patient/Family Education,Discharge Planning Discharge Recommendations OT Discharge Recommendations SNF Transportation Needs at Discharge Private Vehicle
--- NOTE | 2022-12-13 13:18 | CM.DPC ---
DCP Cont. Per family's request, this WELFARE CENTRE MANAGER met with pt/son to discuss the option of going home onto hospice services, and transition to comfort focused care only. WELFARE CENTRE MANAGER discussed what to expect with hospice in the home, in coordination w/home peg tube feedings through [facility]. Also, pt will require high-flow O2 both at home and during ALS transport. WELFARE CENTRE MANAGER called [facility], they do have an a rig with high-flow, they will need to the the parameters prior to transport. Faxed clinicals to [facility] for review. Per Hospitalist, pt will be here 2-more days prior to d/c in order to try to get his O2 levels down, he is currently on high-flow at 50L, but RN felt he could be safely transported home with 15L, cont. to monitor.
--- NOTE | 2022-12-13 17:12 | PM.PN.1 ---
Subjective Subjective Date Patient Seen: 12/11/22 Time Patient Seen: 08:11 Interval history: Patient with worsened hypoxia today. Patient at family interested in returning home on hospice as soon as possible. Exam Vital Signs (past 8 hours): - 12/13/22 09:21 12/13/22 09:48 12/13/22 10:00 Temperature 99.4 F 99.4 F Pulse Rate Respiratory Rate Blood Pressure Pulse Oximetry 95 Oxygen Delivery Method High Flow Nasal Cannula Oxygen Flow Rate 50 Fraction of Inspired Oxygen 12/13/22 10:19 12/13/22 10:43 12/13/22 10:47 Temperature 99.2 F Pulse Rate 60 Respiratory Rate 30 H 24 Blood Pressure Pulse Oximetry 90 L 93 Oxygen Delivery Method Heated High Flow Oxygen Flow Rate Fraction of Inspired Oxygen 12/13/22 12:10 12/13/22 13:58 12/13/22 14:16 Temperature 97.5 F L Pulse Rate 89 Respiratory Rate 19 20 Blood Pressure 111/72 Pulse Oximetry 99 95 98 Oxygen Delivery Method High Flow Nasal Cannula Oxygen Flow Rate 50 Fraction of Inspired Oxygen 40 12/13/22 16:00 Temperature 96.5 F L Pulse Rate 94 H Respiratory Rate 18 Blood Pressure 116/64 Pulse Oximetry 96 Oxygen Delivery Method Oxygen Flow Rate 40 Fraction of Inspired Oxygen 40 Fraction of Inspired Oxygen 40 SaO2/FiO2 Ratio 350 Oxygen Delivery Method High Flow Nasal Cannula Oxygen Flow Rate 40 Narrative Exam Narrative: GEN: frail, weak appearing, but significantly improving, in no acute medical distress CV: regular rate and rhythm PULM: decreased air entry in general, possible fine crackles throughout, poor chest expansion ABD: soft, nontender, nondistended, BS present EXT: warm and well perfused with no edema NEURO: awake, alert, oriented, no focal deficits Objective Labs 12/13/22 05:08 12/13/22 05:08 Labs: Laboratory Results - last 24 hr 12/13/22 05:08 WBC 9.7 RBC 3.01 L Hgb 10.3 L Hct 30.6 L MCV 101.6 H MCH 34.1 H MCHC 33.6 RDW 14.9 H Plt Count 202 Neut % (Auto) 80.8 H Lymph % (Auto) 11.8 L [place] % (Auto) 5.4 Eos % (Auto) 1.6 L Baso % (Auto) 0.4 Neut # (Auto) 7900 H Lymph # (Auto) 1100 [place] # (Auto) 500 Eos # (Auto) 200 Baso # (Auto) 0 Sodium 146 H Potassium 4.4 Chloride 104 Carbon Dioxide 37 H BUN 54 H Creatinine 1.56 H Estimated GFR 45 L BUN/Creatinine Ratio 34.6 H Glucose 239 H Calcium 10.0 PFSH Social History household members: none Smoking Status: Current every day smoker alcohol intake: never Assessment & Plan Assessment & Plan narrative: # Sepsis with DOMENICA, Acute hypoxemic respiratory failure secondary to pneumonia from likely aspiration -chest xray with left opacity consistent with pneumonia -requiring oxygen for sats initially in the 80s. He was improving but developed acute worsening requiring heated high flow O2. Improving somewhat today. -CT negative for PE, did show mucous plugging - started on robitussin via PEG for mucolytic, ordered for chest PT with respiratory therapy to break up mucous plug. - have restarted zosyn. He did develop abdominal disension. Possible aspiration from tube feeds. These were held with improvement in distension. - resumed tube feeds at recommended intervals per dietary. # dysphagia due to probable underlying parkinson's disease -gen surg placed PEG 12/08 -NPO has been changed to modified diet by TOP DYEING MACHINE LOADER - Sinemet started evening of 12/08 and titrate up as tolerated to see if this helps his swallow, benefitting from Sinemet, now on 4 pills per day # Hypertension -hold oral meds for now, currently stable without medication # Type 2 diabetes -continue to hold home oral medications -glucoses increased with tube feeds started. -increase lantus to 15 U nightly, continue sliding scale. Disposition: Recommended for SNF, but patient declines. Discussed with family and they would prefer home with hospice. Plan is to see if we can wean from high flow nasal cannula with above antibiotics, mucolytic, and continued sinemet. If not EMS can transport with high flow. CODE: DNR/DNI Proxy: Chilango Adams, abundio DVT prophylaxis: enoxaparin 40 mg daily subcut
[2022-12-13] MEDS: INSULIN GLARGINE 100 UNIT/ML 3ML PEN 15 UNIT SUBCUT (20:05)
[2022-12-14] VITALS (16 sets, daily range): BP systolic 104–145; BP diastolic 63–73; PULSE 80–104; RESP 18–22; TEMP 35.7–36.9; O2SAT 90–98
[2022-12-14] MEDS: PIPERACILLIN/TAZO 3.375 GM in SODIUM CHLORIDE 0.9% 100 ML IV ×3 (01:26→17:53)
[2022-12-14] MEDS: INSULIN LISPRO 100 UNIT/ML 3ML VIAL SUBCUT ×4 (02:11→20:26)
[2022-12-14] MEDS: SODIUM CHLORIDE 0.9% FLUSH 10 ML IV ×3 (05:46→21:25)
[2022-12-14] MEDS: guaiFENesin Solution 100 MG/5 ML UDC PO (05:46)
[2022-12-14] MEDS: THIAMINE 100 MG TABLET PO (08:35)
[2022-12-14] MEDS: CARBIDOPA-LEVODOPA 25/100 TABLET 1 EACH PO ×4 (08:35→20:28)
[2022-12-14] MEDS: MULTIVITAMIN 1 TABLET 1 TAB PO (08:38)
[2022-12-14] MEDS: ENOXAPARIN 40 MG/0.4 ML SYRINGE SUBCUT (08:41)
[2022-12-14] MEDS: ALBUTEROL 2.5 MG/3 ML NEB (ADULT) INH (09:00)
--- NOTE | 2022-12-14 10:08 | OT.IPNOTE ---
Per hospitalist okay to discharge pt from services as going on hospice.
--- NOTE | 2022-12-14 10:16 | SLP.IPNOTE ---
Per hospitalist (Dr. Fairbanks), d/c therapy orders due to pt pursuing hospice.
--- NOTE | 2022-12-14 11:12 | PT-IP ANOTE ---
Per AM rounds, pt is being discharged from skilled PT as he will be transitioning to hospice care. PT can re-consult if there is a change in status.
--- NOTE | 2022-12-14 11:45 | PM.PN.1 ---
Subjective Subjective Date Patient Seen: 12/11/22 Time Patient Seen: 08:11 Interval history: Patient still on high blow, 25 L and 34%. Working on getting equipment at home including oxygen and hospital bed. Working with hospice to arrange timing for discharge home on hospice, probably in a couple of days. Exam Vital Signs (past 8 hours): - 12/14/22 04:00 12/14/22 04:00 12/14/22 06:00 Temperature 97.0 F L Pulse Rate 104 H Respiratory Rate 18 Blood Pressure 145/72 H Pulse Oximetry 95 90 L 94 Oxygen Delivery Method High Flow Nasal Cannula High Flow Nasal Cannula Oxygen Flow Rate 25 25 25 Fraction of Inspired Oxygen 34 12/14/22 07:50 12/14/22 09:00 12/14/22 09:08 Temperature 98.4 F Pulse Rate 92 H 94 H Respiratory Rate 19 22 22 Blood Pressure 115/64 Pulse Oximetry 96 92 92 Oxygen Delivery Method Heated High Flow Oxygen Flow Rate 0 25 Fraction of Inspired Oxygen 35 12/14/22 11:25 Temperature 97.2 F L Pulse Rate 94 H Respiratory Rate 19 Blood Pressure 124/73 Pulse Oximetry 94 Oxygen Delivery Method Oxygen Flow Rate 25 Fraction of Inspired Oxygen 34 Fraction of Inspired Oxygen 34 SaO2/FiO2 Ratio 262 Oxygen Delivery Method Heated High Flow Oxygen Flow Rate 25 Narrative Exam Narrative: GEN: frail, weak appearing, but significantly improving, in no acute medical distress CV: regular rate and rhythm PULM: decreased air entry in general, possible fine crackles throughout, poor chest expansion ABD: soft, nontender, nondistended, BS present EXT: warm and well perfused with no edema NEURO: awake, alert, oriented, no focal deficits Objective Labs 12/13/22 05:08 12/13/22 05:08 [facility] Social History household members: none Smoking Status: Current every day smoker alcohol intake: never Assessment & Plan Assessment & Plan narrative: # Sepsis with DOMENICA, Acute hypoxemic respiratory failure secondary to pneumonia from likely aspiration -chest xray with left opacity consistent with pneumonia -requiring oxygen for sats initially in the 80s. He was improving but developed acute worsening requiring heated high flow O2. He is on the borderline of needing heated high flow, may be able to come off in the coming days with continued antibiotic therapy and chest PT. -CT negative for PE, did show mucous plugging - started on robitussin via PEG for mucolytic, ordered for chest PT with respiratory therapy to break up mucous plug. - have restarted zosyn. He did develop abdominal disension. Possible aspiration from tube feeds. These were held with improvement in distension and now have resumed tube feeds at recommended intervals per dietary. - goal is home with hospice as soon as possible, working with care management on timing and arrangement of equipment and oxygen delivery. He may be able to come off high flow in the coming days prior to home. Goal O2 saturations are 88-96% while on supplemental therapy and will continue to try to wean from O2 as tolerated. # dysphagia due to probable underlying parkinson's disease -gen surg placed PEG 12/08 -NPO has been changed to modified diet by [employer]PER[employer] - Sinemet started evening of 12/08 and titrate up as tolerated to see if this helps his swallow, benefitting from Sinemet, now on 4 pills per day # Hypertension -hold oral meds for now, currently stable without medication # Type 2 diabetes -continue to hold home oral medications -glucoses increased with tube feeds started. -increase lantus to 20 U nightly, continue sliding scale. Glucose still uncontrolled. Disposition: Recommended for SNF, but patient declines. Discussed with family and they would prefer home with hospice. Plan is to see if we can wean from high flow nasal cannula with above antibiotics, mucolytic, and continued sinemet. If not EMS can transport with high flow. Goal O2 saturations are 88-96% while on supplemental therapy. CODE: DNR/DNI Proxy: Chilango Adams, son DVT prophylaxis: enoxaparin 40 mg daily subcut
--- NOTE | 2022-12-14 15:16 | CM.DPC ---
DCP Cont. Reviewed EMR and team rounds for updates. Evolving plan, several calls made today between pt's son, hospice, dietary, and coordination with Dr. Fairbanks. Updated Plan: Pt to d/c on Sunday home w/[facility]. They have the feeding equipment available, so [employer] [employer] was not needed, called Jadiel and left him a message updating him. Called Sharmila in dietary, she will ensure that the pt has 2-days worth of tube feeds available to bring home with him while Hospice orders the ongoing formulas. Pt has been at 40LO2, he will need to get to 15LO2 in order to d/c with hospice, their highest home O2 capability is 15L for high-flow. Son updated. He had asked this am for pt to remain in the hospital until next Sunday, explained that we were not able to do this, and ultimately we all agreed on a plan for Sunday, Dr. Fairbanks in agreement, and will work to getting pt's O2 needs decreased by then, if possible. DME being delivered hopefully tomorrow by [facility]. Pt will require ALS transport in order to accommodate the high-flow capacity. No arrangements have been made for this yet, everything is pending pt's O2 status over the next 2-days. Son states he is in agreement with this plan. Cont. to follow closely.
--- NOTE | 2022-12-14 16:23 | DIET.PN1 ---
Dietary Progress Note Supply chain issues with formula Glucerna 1.5. Okay to use Pivot 1.5 as substitute with same calories per mL. Hospice requests 2L formula for pt at d/c. Kitchen to provide to pt upon d/c. Ht: 187.96 cm Wt: 72.575 kg BMI: 20.5 Last BM: 12/06/22 (12/08/22 14:56) MNA: 12 Navi Score: 12 Diet: 12/08/22 11:32 NPO Diet Diet Modifications: NPO Type: Strict 12/12/22 Lunch Tube Feeding Diet Diet Modifications: TF Supplement type: Glucerna 1.5cal TF mode of delivery: Bolus Starting flow rate mL/hr: 240 Flow rate goal mL/hr: 240 Titration Schedule to reach Goal Rate: none Max total daily volume in mL: 1,920 Free fluid: 200 Free Water Frequency: Q4H Nutrition Percent Meal Consumed NPO 12/13/22 17:55 Type of Feeding Tube PEG 12/14/22 16:12 Type of Feeding Tube PEG 12/13/22 22:47 Labs: RBC 3.01 X10^6/uL (4.5-5.9) L 12/13/22 05:08 Hgb 10.3 g/dL (13.5-17.5) L 12/13/22 05:08 Hct 30.6 % (41-53) L 12/13/22 05:08 Creatinine 1.56 mg/dL (0.66-1.25) H 12/13/22 05:08 Lactate 1.1 mmol/L (0.7-2.1) 12/06/22 08:45 NT-Pro-B Natriuret Pep 1080 pg/mL (<450) H 12/06/22 08:45 Electronically Signed by: Sharmila Batista 12/14/22 16:23 Clinical Dietitian [address] [address]
--- NOTE | 2022-12-14 19:24 | PC.NURSE ---
Patient tolerated tube feed boluses today, and water flushes. He has not yet had a bowel movement but he is passing gas. Passed onto night rn that patient could use something to help him have a bm. He is on heated high flow at 15L and FIO2 at 34%. Patient visiting with his family. Resting comfortably. Oral care done
[2022-12-14] MEDS: INSULIN GLARGINE 100 UNIT/ML 3ML PEN 20 UNIT SUBCUT (20:37)
[2022-12-15] VITALS (18 sets, daily range): BP systolic 129–141; BP diastolic 69–87; PULSE 84–94; RESP 18–22; TEMP 36–37; O2SAT 88–99
[2022-12-15] MEDS: PIPERACILLIN/TAZO 3.375 GM in SODIUM CHLORIDE 0.9% 100 ML IV ×3 (01:43→16:17)
[2022-12-15] MEDS: INSULIN LISPRO 100 UNIT/ML 3ML VIAL SUBCUT ×4 (01:50→20:50)
[2022-12-15] MEDS: THIAMINE 100 MG TABLET PO (08:39)
[2022-12-15] MEDS: CARBIDOPA-LEVODOPA 25/100 TABLET 1 EACH PO (08:40)
[2022-12-15] MEDS: MULTIVITAMIN 1 TABLET 1 TAB PO (08:40)
[2022-12-15] MEDS: ENOXAPARIN 40 MG/0.4 ML SYRINGE SUBCUT (08:40)
[2022-12-15] MEDS: SODIUM CHLORIDE 0.9% FLUSH 10 ML IV ×2 (08:55→21:23)
--- NOTE | 2022-12-15 12:09 | PM.PN.1 ---
Subjective Subjective Date Patient Seen: 12/11/22 Time Patient Seen: 08:11 Interval history: Patient improved today, down to 10L and off high flow. He feels better and a bit stronger today. Plan is for discharge home with hospice tomorrow. Exam Vital Signs (past 8 hours): - 12/15/22 05:35 12/15/22 05:59 12/15/22 06:00 Temperature 97.7 F Pulse Rate 94 H 85 Respiratory Rate 19 20 Blood Pressure 129/69 Pulse Oximetry 93 95 91 Oxygen Delivery Method High Flow Nasal Cannula Oxygen Flow Rate 15 15 Fraction of Inspired Oxygen 34 12/15/22 06:03 12/15/22 07:40 12/15/22 07:45 Temperature Pulse Rate 92 H Respiratory Rate 22 22 Blood Pressure Pulse Oximetry 95 94 94 Oxygen Delivery Method Heated High Flow High Flow Nasal Cannula Oxygen Flow Rate 10 Fraction of Inspired Oxygen 12/15/22 08:00 12/15/22 09:04 12/15/22 09:05 Temperature 98.6 F Pulse Rate 93 H Respiratory Rate 18 Blood Pressure 133/77 Pulse Oximetry 94 96 Oxygen Delivery Method High Flow Nasal Cannula High Flow Nasal Cannula Oxygen Flow Rate 0 Fraction of Inspired Oxygen Fraction of Inspired Oxygen 34 SaO2/FiO2 Ratio 280 Oxygen Delivery Method High Flow Nasal Cannula Oxygen Flow Rate 0 Narrative Exam Narrative: GEN: frail, weak appearing, but significantly improving, in no acute medical distress CV: regular rate and rhythm PULM: left rhonchi near his base, otherwise clear throughout today. ABD: soft, nontender, nondistended, BS present EXT: warm and well perfused with no edema NEURO: awake, alert, oriented, no focal deficits Objective Labs 12/13/22 05:08 12/13/22 05:08 [facility] Social History household members: none Smoking Status: Current every day smoker alcohol intake: never Assessment & Plan Assessment & Plan narrative: # Sepsis with DOMENICA, Acute hypoxemic respiratory failure secondary to pneumonia from likely aspiration -chest xray with left opacity consistent with pneumonia -requiring oxygen for sats initially in the 80s. He was improving but developed acute worsening requiring heated high flow O2 on 12/12. Now weaned from heated high flow to 10L today. -12/12 CT negative for PE, did show mucous plugging - started on robitussin via PEG for mucolytic, ordered for chest PT with respiratory therapy to break up mucous plug. - restarted zosyn. He did develop abdominal disension. Possible aspiration from tube feeds. These were held with improvement in distension and now have resumed tube feeds at recommended intervals per dietary. Recommend discharge home with another few days of antibiotics for possible re-aspiration given improvement. - goal is home with hospice as soon as possible, working with care management on timing and is likely to be tomorrow. He is now stable on 10L today, need to be <15L for home with hospice. Goal O2 saturations are 88-96% while on supplemental therapy and will continue to try to wean from O2 as tolerated. # dysphagia due to probable underlying parkinson's disease -gen surg placed PEG 12/08 -NPO has been changed to modified diet by [employer] - Sinemet started evening of 12/08 and titrate up as tolerated to see if this helps his swallow. He is now on 4 pills per day. Recommend continued titration as an outpatient as he is improving with sinemet if consistent with goals of care in the coming weeks. # Hypertension -hold oral meds for now, currently stable. Will resume metoprolol 12.5 mg BID via PEG to replace 25 mg daily dosing with HR in the 90s today and intermittently elevated BP. # Type 2 diabetes -continue to hold home oral medications -glucoses increased with tube feeds started. Continues to remain quite high. -increase lantus again to 30 U nightly (started at 10 U a few days ago) continue sliding scale. Glucose still uncontrolled. Disposition: Recommended for SNF, but patient declines. Discussed with family and they would prefer home with hospice. Now that he is on 10L via NC he can go home with hospice, which is set up for tomorrow. CODE: DNR/DNI Proxy: Chilango Adams, son DVT prophylaxis: enoxaparin 40 mg daily subcut
[2022-12-15] MEDS: CARBIDOPA-LEVODOPA 25/100 TABLET 1 EACH TUBE ×3 (12:32→21:15)
--- NOTE | 2022-12-15 13:34 | PC.NURSE ---
Day shift: Dr Fairbanks aware of 399 blood glucose at 1330. No new orders.
--- NOTE | 2022-12-15 14:19 | CM.DPNOTE ---
DCP Note Reviewed chart. Updated Petrona at [facility] that patient's oxygen requirement has decreased today and thus Petrona confirms patient's slot is secured tomorrow morning from [id number] for Hospice service to open. Hospice prepared for management of O2 and patient's peg tube feeds. Petrona requests patient discharge with a three day supply of formula. Arranged BLS transport for lemon picker tomorrow morning at 0900 (switch to ALS if patient requiring more than 10L O2). Updated patient who remains agreeable to plan. POLST has been updated by patient and Dr Fairbanks. BLS form has been completed and signed for ambulance. Plan: Discharge tomorrow anticipated, home w/family, BLS p/u at 0900, [facility] between [id number]. Patient now has extra formula at bedside, provided by kitchen staff JW
[2022-12-15] MEDS: INSULIN GLARGINE 100 UNIT/ML 3ML PEN 30 UNIT SUBCUT (20:53)
[2022-12-15] MEDS: METOPROLOL IR 25 MG TABLET 12.5 MG PO (21:14)
[2022-12-16 00:38] VITALS: BP 150/80; PULSE 92; RESP 20; TEMP 36.9; O2SAT 96
[2022-12-16 02:00] VITALS: O2SAT 96
[2022-12-16] MEDS: PIPERACILLIN/TAZO 3.375 GM in SODIUM CHLORIDE 0.9% 100 ML IV (02:09)
[2022-12-16] MEDS: INSULIN LISPRO 100 UNIT/ML 3ML VIAL SUBCUT ×2 (02:17→08:02)
[2022-12-16 04:15] VITALS: BP 143/84; PULSE 94; RESP 20; TEMP 36.6; O2SAT 95
[2022-12-16 05:44] VITALS: O2SAT 94
[2022-12-16 07:30] VITALS: O2SAT 94
--- NOTE | 2022-12-16 07:50 | P.DS_ITS ---
History of Present Illness History of Present Illness Chief complaint: SOB Narrative: Per H&P: Mr. Adams is a 77M with PMH DM, HTN, smoker, ?COPD who presents to the hospital with cough, weakness and confusion. He was seen in the ED for similar issue on 12/03, diagnosed with a pneumonia, and discharged. He has had a few weeks of swallowing difficulty. He passwed bedside swallow eval during last ED visit. Today family went to check on the patient and found him altered, gurgling. EMS was called and noted he had sats in the 80s. He was placed on oxygen. He was suctioned and felt improved. In the ED workup was done, vitals notable for afebrile, heart rate 80s, sats in the 80s on room air, blood pressure 120s-140s/60s-70s. Labs reviewed by me and notable for WBC 8.1, hgb 10.6, plts 247. BUN 41, 1.93. Procal 0.27. Lactate 1.1. COVID, RSV, flu negative. UA negative for infection. Chest xray reviewed by me and notable for left lobe airspace opacity. He had noted difficulty swallowing. He was ordered for antibiotics and admitted for further treatment. Discharge Providers Provider Date of admission: 12/06/22 12:41 Discharge Date: 12/16/22 Primary care physician: Doctor Steve MD Consults: 12/06/22 10:48 Consult to Occupational Therapy Evaluate & Treat Comment: Physician Instructions: Evaluate and treat 12/06/22 12:30 Consult to Speech Therapy Evaluate & Treat Comment: Physician Instructions: Evaluate and treat/ failed swallow 12/06/22 13:46 Consult to Occupational Therapy Evaluate & Treat Comment: Physician Instructions: Evaluate and treat Consult to Physical Therapy Evaluate & Treat Comment: Physician Instructions: Evaluate and Treat 12/08/22 10:38 Consult to General Surgery Routine Comment: Consulting Provider: Chuy Andersen Reason for consultation: needs PEG 12/08/22 15:33 Consult to Dietitian, Adult Routine Comment: Reason For Exam: tube feeds 12/09/22 15:32 Consult to Dietitian, Adult Routine Comment: Reason For Exam: dietitian consult for tube feeding 12/12/22 10:16 Consult to Home Health Routine Comment: RN, PT, ST, LABEL DRIER Reason For Exam: Home Health Discharge provider: Maddie Nails MD Summary Hospital Course Discharge Diagnosis: 1. Sepsis with acute kidney injury improved 2. Acute hypoxic respiratory failure, improved 3. Aspiration pneumonia 4. Dysphagia secondary to Parkinson's disease 5. Parkinson's disease, end-stage 6. Hypertension 7. Type 2 diabetes, uncontrolled with hyperglycemia Hospital Course: Patient was admitted with cough, weakness, and confusion. He had been in the emergency department a couple of days prior and was found to have pneumonia. Had dysphagia for several weeks prior to admission. He was noted have oxygen saturations in the 80s. He was requiring suction. His creatinine was 1.93. Modified barium swallow was performed on December 07. He had significant evidence of aspiration. Peg tube was placed on December 08 by General surgery. He developed worsening hypoxia on December 11, had mucus plugging, and increased abdominal distention. He developed symptoms and signs of sepsis on December 13. He was placed on IV Zosyn. He was felt possibly to have aspirated tube feeds when his abdomen was distended. Tube feeds were held with improvement overall. On December 13, patient expressed desire for comfort directed care. He required significant supplemental oxygen support with high-flow nasal cannula. On December 15, his oxygen need was improving. Eighteen coordinated with [facility] [place] and arrangements were made for discharge via S ambulance today. Patient is discharging in guarded but stable condition. His prognosis is anticipated to be less than 6 months. Status at Discharge Cognitive/behavioral status at discharge: oriented Functional status at discharge: bed bound Overall status at discharge: patient is not back to baseline Time Spent with Patient Time spent: Greater than 30 minutes Exam Vital Signs (past 8 hours): - 12/16/22 00:38 12/16/22 02:00 12/16/22 04:15 Temperature 98.4 F 97.8 F Pulse Rate 92 H 94 H Respiratory Rate 20 20 Blood Pressure 150/80 H 143/84 H Pulse Oximetry 96 96 95 Oxygen Delivery Method Room Air Oxygen Flow Rate 5 6 3 12/16/22 05:44 12/16/22 07:15 Temperature Pulse Rate Respiratory Rate Blood Pressure Pulse Oximetry 94 Oxygen Delivery Method Nasal Cannula High Flow Nasal Cannula Oxygen Flow Rate 2 Fraction of Inspired Oxygen 34 SaO2/FiO2 Ratio 280 Oxygen Delivery Method High Flow Nasal Cannula Oxygen Flow Rate 2 Narrative Exam Narrative: GEN: Frail elderly male, Alert and oriented x 3, soft, gravelly voice, no acute distress HEENT:NC, Face symmetric CHEST: Respiratory excursions symmetric, coarse but CTAB CV: RRR, no M/R/G ABD: Soft, NT/ND, BT present in all 4 quadrants, no organomegaly or masses, peg tube site is clean, dry, intact EXTR: warm, well perfused, no C/C/E SKIN: warm and dry, no rash NEURO: Alert and oriented x 3 Objective Labs 12/13/22 05:08 12/13/22 05:08 [facility] Social History household members: none Smoking Status: Current every day smoker alcohol intake: never Discharge Plan Discharge Plan Patient Disposition: Hospice - Home Provider Discharge Comment: DC via BLS/Nonemergent ambulance. Discontinue: Midline IV Continue: Dumont catheter O2: 3lpm continuous, wean as able for comfort Tube feeds: Pivot 1.5 (or similar substitute) TF mode of delivery: Bolus Starting flow rate mL/hr: 240 Flow rate goal mL/hr: 240 Titration Schedule to reach Goal Rate: none Max total daily volume in mL: 1,920 Free fluid: 200 Free Water Frequency: Q4H Discharge orders & Medications Prescriptions: New albuterol sulfate 2.5 mg /3 mL (0.083 %) Solution For Nebulization 2.5 mg INH Q4H PRN (Reason: Shortness Of Breath) Qty: 90 0RF carbidopa-levodopa 25-100 mg Tablet 1 tab TUBE QID Qty: 120 0RF metoprolol tartrate 25 mg Tablet 12.5 mg feeding tube BID Qty: 60 0RF insulin glargine [Lantus Solostar U-100 Insulin] 100 unit/mL (3 mL) Insulin Pen 35 unit SUBCUT BEDTIME Qty: 3 0RF Discontinued metoprolol succinate 25 mg tablet extended release 24 hr 25 mg PO DAILY amlodipine 5 mg tablet 5 mg PO DAILY albuterol sulfate 90 mcg/actuation Hfa Aerosol Inhaler 2 puff INHALATION Q4-6H PRN (Reason: SOB) glipizide 10 mg Tablet 10 mg PO BID chlorthalidone 25 mg Tablet 25 mg PO DAILY metformin 1,000 mg Tablet 1,000 mg PO BID lisinopril 40 mg Tablet 40 mg PO DAILY rosuvastatin [Crestor] 5 mg Tablet 5 mg PO DAILY Adult Aspirin 81 mg Tablet 81 mg PO DAILY amoxicillin-pot clavulanate 875-125 mg tablet 1 tab PO BID Qty: 20 0RF Follow up/Referrals: Steve,DoctorMD [Primary Care Provider] - Diet/Activity/Treatments Diet: Nothing by Mouth and Tube Feeding Activity: As tolerated Catheter: 2-way Dumont Visit Report/Discharge Packet Instructions: [facility] Stand Alone Forms: Patient Portal/API Discharge Data Primary Care Provider: Doctor Steve
[2022-12-16 08:00] VITALS: BP 137/73; PULSE 94; RESP 18; TEMP 36.7; O2SAT 95
[2022-12-16] MEDS: METOPROLOL IR 25 MG TABLET 12.5 MG PO (08:07)
[2022-12-16] MEDS: ENOXAPARIN 40 MG/0.4 ML SYRINGE SUBCUT (08:07)
[2022-12-16] MEDS: THIAMINE 100 MG TABLET PO (08:07)
[2022-12-16] MEDS: MULTIVITAMIN 1 TABLET 1 TAB PO (08:07)
[2022-12-16] MEDS: CARBIDOPA-LEVODOPA 25/100 TABLET 1 EACH TUBE (08:08)
--- NOTE | 2022-12-16 08:57 | CM.DPNOTE ---
DC Note Patient has been discharged home, BLS crew scheduled for brick picker at 0900. BLS form for Ambulance completed and signed, POLST and face sheet attached. Dr Nails has completed meds [facility] will open services in patient's home this morning between [id number]. Patient and family remain agreeable to plan. DC Summary faxed to [facility]LE[facility] JW
--- NOTE | 2022-12-16 09:04 | PC.NURSE ---
Day shift: Paperwork signed and all questions answered. LEft unit at approx 0900 w/ BLS. Pt's Son in room for teachings. PEG remains patent and functioning. Gave AM meds via PEG and he tolerated well. Pt has all personal belongings. scripts sent electronic to Pt's pharmacy. Discussed with Son that Pt will be due for a 240ml feeding when he is home and situated.
== END 2022-12-16 09:06 | disposition hospice, home (50) | DRG 177 ==
LOC: ED 08:56 → AC 12:48
PROVIDERS: Student in an Organized Health Care Education/Training Program; Surgery; Admitting Provider Internal Medicine; Emergency Provider Emergency Medicine; Referring Provider Emergency Medicine; Visit Provider Internal Medicine
PROC: 0DH63UZ Insertion of Feeding Device into Stomach, Percutaneous Approach (ICD-10-PCS; CPT 43246; principal; 2022-12-08 15:45)
DX: J69.0 Pneumonitis due to inhalation of food and vomit (principal); A41.9 Sepsis, unspecified organism; J96.01 Acute respiratory failure with hypoxia; R65.20 Severe sepsis without septic shock; N17.9 Acute kidney failure, unspecified; E46 Unspecified protein-calorie malnutrition; F17.210 Nicotine dependence, cigarettes, uncomplicated; G20.A1 Parkinson's disease without dyskinesia, without mention of fluctuations; I10 Essential (primary) hypertension; E11.65 Type 2 diabetes mellitus with hyperglycemia; J44.9 Chronic obstructive pulmonary disease, unspecified; Z79.84 Long term (current) use of oral hypoglycemic drugs; Z66 Do not resuscitate; Z68.20 Body mass index [BMI] 20.0-20.9, adult
CPT/HCPCS: 0241U; 36415; 36600; 51798; 70450; 71045; 71275; 74018; 74230; 80048; 80053; 81001; 81003; 82550; 82805; 82962; 83605; 83735; 83880; 84100; 84145; 84484; 85025; 85610; 85730; 87040; 87635; 92526; 92610; 92611; 93005; 94640; 94667; 94760; 94799; 96365; 97116; 97162; 97166; 97530; 97535; 99232; 99285; C9803; J0696; J1642; J1650; J1815; J2543; J2765; J3010; J7613; Q9967